=== PATIENT | female | born 1930 | race African-American/Black ===

== ENCOUNTER 2018-10-04 11:44 | Emergency (ER) | payer MEDICARE, MEDICAID ==
[~2018-10-04] VITALS: Ht 160 cm; Wt 63.0 kg
[~2018-10-04 11:44] MED LIST: AMLO10TA4 PO; ANAS1TAB47 PO; GLYB5TAB PO; INDA1.25 PO; INSU100I13 SQ; IRBE300T PO; OMEP40CA5 PO
--- NOTE | 2018-10-04 12:35 | PHYS DOC ---
Past Medical History Past Medical History: Diabetes-Type II, Other Additional Past Medical Histor: BREAST CA Past Surgical History: Other Additional Past Surgical Histo: L. BIG TOE Alcohol Use: None Drug Use: None Adult General Chief Complaint Chief Complaint: ALTERED MENTAL STATUS HPI HPI Patient is a 88 year old female who presents with AMS. The patients daughter and grandson are in the room. Her grandson states that she has been incoherent and at times she doesn't know where she is. She did not know she was in her own home before coming to the ED. This has been going on for a couple days. She lives with her daughter and does not have a senior care assistant. She is normally high functioning. This has happened before when her blood sugar was in the 400s. Her grandson states that she had a fall in May and experienced a concussion. Her MRI and CT were normal at that time. They are unsure if she has fallen again. She has not been diagnosed with dementia. She currently knows that she is at [place], the month and the year. Denies recent illness, CP, SOA, or abdominal pain.[] Review of Systems Review of Systems Constitutional: Denies fever or chills [] Eyes: Denies change in visual acuity, redness, or eye pain [] HENT: Denies nasal congestion or sore throat [] Respiratory: Denies cough or shortness of breath [] Cardiovascular: No additional information not addressed in HPI [] GI: Denies abdominal pain, nausea, vomiting, bloody stools or diarrhea [] : Denies dysuria or hematuria [] Musculoskeletal: Denies back pain or joint pain [] Integument: Denies rash or skin lesions [] Neurologic: Denies headache, focal weakness or sensory changes [] Endocrine: Denies polyuria or polydipsia [] All other systems were reviewed and found to be within normal limits, except as documented in this note. Current Medications Current Medications Current Medications Medications (Trade) Dose Ordered Sig/Markell Start Time Stop Time Status Last Admin Dose Admin Amlodipine Besylate (Norvasc) 10 mg 1X ONCE 10/04/18 12:45 10/04/18 12:46 DC 10/04/18 12:50 10 MG Sodium Chloride 500 ml @ 500 mls/hr 1X ONCE 10/04/18 12:45 10/04/18 13:44 DC 10/04/18 12:50 500 MLS/HR Allergies Allergies Allergies Coded Allergies Type Severity Reaction Last Updated Verified codeine Allergy Unknown 08/21/14 Yes Physical Exam Physical Exam Constitutional: Well developed, cachectic, no acute distress, non-toxic appearance. [] HENT: Normocephalic, atraumatic, bilateral external ears normal, oropharynx moist, no oral exudates, nose normal. [] Eyes: PERRLA, EOMI, conjunctiva normal, no discharge. [] Neck: Normal range of motion, no tenderness, supple, no stridor. [] Cardiovascular:Heart rate regular rhythm, no murmur [] Lungs & Thorax: Bilateral breath sounds clear to auscultation [] Abdomen: Bowel sounds normal, soft, no tenderness, no masses, no pulsatile masses. [] Skin: Warm, dry, no erythema, no rash. [] Back: No tenderness, no CVA tenderness. [] Extremities: No tenderness, no cyanosis, no clubbing, ROM intact, no edema. [] Neurologic: Alert and oriented X 3, normal motor function, normal sensory function, no focal deficits noted. [] Psychologic: Affect is somewhat odd, judgement normal, mood normal. [] Current Patient Data Vital Signs Vital Signs Date Time Temp Pulse Resp B/P (MAP) Pulse Ox O2 Delivery O2 Flow Rate FiO2 10/04/18 13:52 70 98 10/04/18 12:50 217/125 10/04/18 12:00 98.3 18 Room Air 98.3 Lab Values Laboratory Tests Test 10/04/18 12:10 10/04/18 12:15 10/04/18 12:35 Glucose (Fingerstick) 297 mg/dL (70-99) H White Blood Count 6.8 x10^3/uL (4.0-11.0) Red Blood Count 4.33 x10^6/uL (3.50-5.40) Hemoglobin 12.2 g/dL (12.0-15.5) Hematocrit 36.6 % (36.0-47.0) Mean Corpuscular Volume 84 fL (79-100) Mean Corpuscular Hemoglobin 28 pg (25-35) Mean Corpuscular Hemoglobin Concent 33 g/dL (31-37) Red Cell Distribution Width 13.8 % (11.5-14.5) Platelet Count 190 x10^3/uL (140-400) Neutrophils (%) (Auto) 68 % (31-73) Lymphocytes (%) (Auto) 20 % (24-48) L Monocytes (%) (Auto) 11 % (0-9) H Eosinophils (%) (Auto) 2 % (0-3) Basophils (%) (Auto) 0 % (0-3) Neutrophils # (Auto) 4.6 x10^3uL (1.8-7.7) Lymphocytes # (Auto) 1.3 x10^3/uL (1.0-4.8) Monocytes # (Auto) 0.7 x10^3/uL (0.0-1.1) Eosinophils # (Auto) 0.1 x10^3/uL (0.0-0.7) Basophils # (Auto) 0.0 x10^3/uL (0.0-0.2) Sodium Level 134 mmol/L (136-145) L Potassium Level 4.2 mmol/L (3.5-5.1) Chloride Level 95 mmol/L (98-107) L Carbon Dioxide Level 28 mmol/L (21-32) Anion Gap 11 (6-14) Blood Urea Nitrogen 27 mg/dL (7-20) H Creatinine 1.9 mg/dL (0.6-1.0) H Estimated GFR (Cockcroft-Gault) 30.3 BUN/Creatinine Ratio 14 (6-20) Glucose Level 340 mg/dL (70-99) H Calcium Level 9.3 mg/dL (8.5-10.1) Total Bilirubin 0.7 mg/dL (0.2-1.0) Aspartate Amino Transferase (AST) 13 U/L (15-37) L Alanine Aminotransferase (ALT) 16 U/L (14-59) Alkaline Phosphatase 109 U/L (46-116) Total Protein 8.0 g/dL (6.4-8.2) Albumin 3.7 g/dL (3.4-5.0) Albumin/Globulin Ratio 0.9 (1.0-1.7) L Urine Collection Type U cath Urine Color Yellow Urine Clarity Cloudy Urine pH 5.0 Urine Specific [place] 1.020 Urine Protein 30 mg/dL (NEG-TRACE) Urine Glucose (UA) >=1000 mg/dL (NEG) Urine Ketones (Stick) Negative mg/dL (NEG) Urine Blood Small (NEG) Urine Nitrite Negative (NEG) Urine Bilirubin Negative (NEG) Urine Urobilinogen Dipstick 0.2 mg/dL (0.2 mg/dL) Urine Leukocyte Esterase Moderate (NEG) Urine RBC 3-5 /HPF (0-2) Urine WBC >40 /HPF (0-4) Urine Squamous Epithelial Cells Few /LPF Urine Bacteria Many /HPF (0-FEW) Urine Mucus Slight /LPF Laboratory Tests 10/04/18 12:15 Laboratory Tests 10/04/18 12:15 EKG EKG nsr rate 76 no ischemic changes[] Radiology/Procedures Radiology/Procedures CT Head WO Contrast CXR Impressions: Impression: 1. No acute intracranial hemorrhage is identified. 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 IMPRESSION: No acute pulmonary finding. Course & Med Decision Making Course & Med Decision Making Pertinent Labs and Imaging studies reviewed. (See chart for details) []This is an 88-year-old female who is presenting to the emergency room with chief complaint altered mental status apparently had some transient confusion where she didn't know where she was currently she does know that she is at [facility] she knows it's October she appears to be essentially back to her baseline. Emergency room workup does reveal a UTI as well as some renal insufficiency which is of indeterminate chronicity at this time patient was given IV fluid bolus in the emergency room and a prescription for Keflex for UTI I talked with the family member in detail who is comfortable with discharge home at this time and knows return precautions for fever vomiting increased confusion or any other symptoms or concerns I noted the blood pressure did tell the family importance of follow-up for this as well we did give a dose of amlodipine in the emergency room patient has no obvious symptoms related to that Dragon Disclaimer Dragon Disclaimer This electronic medical record was generated, in whole or in part, using a voice recognition dictation system. Departure Departure Impression: Primary Impression: Urinary tract infection Additional Impression: Elevated blood pressure reading Disposition: HOME, SELF-CARE Condition: STABLE Referrals: UNKNOWN PCP NAME (PCP) Scripts Cephalexin (CEPHALEXIN) 500 Mg Capsule 1 CAP PO QID, #40 CAP Prov: DUY QUINTERO MD 10/04/18 Problem Qualifiers DUY QUINTERO MD Oct 04, 2018 12:35
[2018-10-04] MEDS ORDERED: IV NORMAL SALINE 500ML BAG 500 ML IV ONE (12:45)
[2018-10-04] MEDS ORDERED: amLODIPine BESYLATE 5 MG TABLET PO ONE (12:45)
[2018-10-04 12:46] LABS: BASO % 0 % (0-3); EOS # 0.1 x10^3/uL (0.0-0.7); EOS % 2 % (0-3); HEMATOCRIT 36.6 % (36.0-47.0); HEMOGLOBIN 12.2 g/dL (12.0-15.5); LYMPH # 1.3 x10^3/uL (1.0-4.8); LYMPH % 20 % (24-48); MEAN CORPUSCULAR HEMOGLOBIN 28 pg (25-35); MEAN CORPUSCULAR HGB CONC 33 g/dL (31-37); MEAN CORPUSCULAR VOLUME 84 fL (79-100); MONO # 0.7 x10^3/uL (0.0-1.1); MONO % 11 % (0-9); NEUT # 4.6 x10^3uL (1.8-7.7); NEUT % 68 % (31-73); PLATELET COUNT 190 x10^3/uL (140-400); RED BLOOD COUNT 4.33 x10^6/uL (3.50-5.40); RED CELL DISTRIBUTION WIDTH 13.8 % (11.5-14.5); WHITE BLOOD COUNT 6.8 x10^3/uL (4.0-11.0)
[2018-10-04 12:51] LABS: BILIRUBIN,URINE NEGATIVE (NEG); CLARITY,URINE CLOUDY; COLOR,URINE YELLOW; NITRITE,URINE NEGATIVE (NEG); PROTEIN,URINE 30 mg/dL (NEG-TRACE); UROBILINOGEN,URINE 0.2 mg/dL (0.2 mg/dL)
[2018-10-04 12:58] LABS: CALCIUM 9.3 mg/dL (8.5-10.1); CREATININE 1.9 mg/dL (0.6-1.0); GFR 30.3; POTASSIUM 4.2 mmol/L (3.5-5.1)
--- NOTE | 2018-10-04 13:00 | RAD ---
EXAM: Chest, single view. HISTORY: Altered mental status. COMPARISON: 03/18/2009. FINDINGS: A frontal view of the chest is obtained. There is no infiltrate, pleural effusion or pneumothorax. The heart is normal in size. There is a large calcified granuloma within the right upper lobe. There is decreased bilateral subacromial spaces likely due to chronic rotator cuff tears. IMPRESSION: No acute pulmonary finding. Electronically signed by: Octavia Lainez MD (10/04/2018 12:57 PM) [place] [id number]
[2018-10-04 13:02] LABS: ALBUMIN 3.7 g/dL (3.4-5.0); ALBUMIN/GLOBULIN RATIO 0.9 (1.0-1.7); TOTAL BILIRUBIN 0.7 mg/dL (0.2-1.0)
--- NOTE | 2018-10-04 13:08 | EKG ---
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
[2018-10-04 13:09] LABS: BACTERIA,URINE MANY /HPF (0-FEW); SQUAMOUS EPITHELIAL CELL,UR FEW /LPF
[2018-10-04 13:10] LABS: WBC,URINE >40 /HPF (0-4)
[2018-10-04 13:52] VITALS: BP 222/110
--- NOTE | 2018-10-04 13:55 | RAD ---
CT HEAD WO CONTRAST History: Confusion, possible fall Comparison: April 25, [address] Technique: Noncontrast CT imaging was performed of the head. Exposure: One or more of the following individualized dose reduction techniques were utilized for this examination: 1. Automated exposure control 2. Adjustment of the mA and/or kV according to patient size 3. Use of iterative reconstruction technique. Findings: There is some motion degradation. No acute intracranial hemorrhage is identified. There is no midline shift. There is again mild third and lateral ventriculomegaly, slightly greater. Size of the fourth ventricle is similar. There is mild generalized atrophy. There is atherosclerotic calcification bilateral carotid siphons and left intradural vertebral artery. Impression: 1. No acute intracranial hemorrhage is identified. 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 Electronically signed by: Andrey Jimenez MD (10/04/2018 1:52 PM) [id number]
[2018-10-04] MEDS ORDERED: CEPH500C PO (14:04)
[2018-11-24] MEDS ORDERED: INSU100C4 SQ (18:26)
[2018-11-24] MEDS ORDERED: GLIP5TAB10 PO (18:26)
[2018-11-24] MEDS ORDERED: EXEM25TA2 PO (18:37)
== END 2018-10-04 14:21 | disposition home or self-care (01) ==
LOC: ER 11:44
DX: E11.9 Type 2 diabetes mellitus without complications (principal); N39.0 Urinary tract infection, site not specified; R41.82 Altered mental status, unspecified; Z88.5 Allergy status to narcotic agent
CPT/HCPCS: 36415; 51701; 70450; 71045; 80053; 81001; 82962; 85025; 87086; 93005; 96360; 99284; J7040; 87186

== ENCOUNTER 2018-10-07 00:42 | Inpatient (IN) | payer MEDICARE, OTHER ==
[~2018-10-07] VITALS: Ht 243.8 cm; Wt 56.8 kg
[~2018-10-07 00:42] MED LIST changes: +CEPH500C PO
[2018-10-07] MEDS ORDERED: INSULIN REGULAR 100 UNIT/ML 3ML VIAL. IV ONE (01:00)
[2018-10-07] MEDS ORDERED: IV NORMAL SALINE 1000ML BAG 1,000 ML IV SCH (01:00)
[2018-10-07 01:31] LABS: BASO % 1 % (0-3); EOS # 0.2 x10^3/uL (0.0-0.7); EOS % 3 % (0-3); HEMATOCRIT 32.4 % (36.0-47.0); HEMOGLOBIN 10.9 g/dL (12.0-15.5); LYMPH # 1.3 x10^3/uL (1.0-4.8); LYMPH % 21 % (24-48); MEAN CORPUSCULAR HEMOGLOBIN 28 pg (25-35); MEAN CORPUSCULAR HGB CONC 34 g/dL (31-37); MEAN CORPUSCULAR VOLUME 84 fL (79-100); MONO # 0.7 x10^3/uL (0.0-1.1); MONO % 12 % (0-9); NEUT # 3.7 x10^3uL (1.8-7.7); NEUT % 63 % (31-73); PLATELET COUNT 174 x10^3/uL (140-400); RED BLOOD COUNT 3.84 x10^6/uL (3.50-5.40); RED CELL DISTRIBUTION WIDTH 14.1 % (11.5-14.5); WHITE BLOOD COUNT 5.9 x10^3/uL (4.0-11.0)
[2018-10-07 01:45] LABS: ALBUMIN 3.3 g/dL (3.4-5.0); ALBUMIN/GLOBULIN RATIO 0.8 (1.0-1.7); CREATININE 1.9 mg/dL (0.6-1.0); GFR 30.3; MAGNESIUM 1.9 mg/dL (1.8-2.4); TOTAL BILIRUBIN 0.5 mg/dL (0.2-1.0); TOTAL PROTEIN 7.2 g/dL (6.4-8.2)
[2018-10-07] MEDS ORDERED: traMADol 50 MG TABLET PO ONE (02:30)
[2018-10-07 03:27] LABS: BILIRUBIN,URINE NEGATIVE (NEG); CLARITY,URINE CLEAR; COLOR,URINE YELLOW; NITRITE,URINE POSITIVE (NEG); PROTEIN,URINE NEGATIVE (NEG-TRACE); UROBILINOGEN,URINE 0.2 mg/dL (0.2 mg/dL)
[2018-10-07 03:45] LABS: BACTERIA,URINE MODERATE /HPF (0-FEW); WBC,URINE TNTC /HPF (0-4)
[2018-10-07] MEDS ORDERED: cefTRIAXone IV Push 1 GM VIAL. IVP ONE (04:00)
--- NOTE | 2018-10-07 04:06 | PHYS DOC ---
Past Medical History Past Medical History: Diabetes-Type II, Other Additional Past Medical Histor: BREAST CA Past Surgical History: Other Additional Past Surgical Histo: L. BIG TOE Alcohol Use: None Drug Use: None Adult General Chief Complaint Chief Complaint: ALTERED MENTAL STATUS [facility] HPI Patient is an 88-year-old female who presents from home with report of being on floor last 5 hours. Patient reportedly was confused and telling medics that she had been folding closed while she was on the floor for 5 hours but had not been doing so. There is also concern that patient has been wearing same close for the last several days. Patient also had been diagnosed with urinary tract infection a few days back but patient has not been initiated on antibiotics by family yet. Patient's blood sugar has also been elevated. Patient denies any chest pain or shortness of breath. She denies any abdominal pain, nausea or vomiting. Review of Systems Review of Systems Constitutional: Denies fever or chills [] Respiratory: Denies cough or shortness of breath [] Cardiovascular: No additional information not addressed in HPI [] GI: Denies abdominal pain, nausea, vomiting, bloody stools or diarrhea [] : Denies dysuria or hematuria [] Musculoskeletal: Denies back pain or joint pain [] All other systems were reviewed and found to be within normal limits, except as documented in this note. Current Medications Current Medications Current Medications Medications (Trade) Dose Ordered Sig/Markell Start Time Stop Time Status Last Admin Dose Admin Ceftriaxone Sodium (Rocephin) 1 gm 1X ONCE 10/07/18 04:00 10/07/18 04:01 UNV Dextrose (Dextrose 50%-Water Syringe) 12.5 gm PRN Q15MIN PRN 10/07/18 04:30 UNV Insulin Human Lispro (HumaLOG) 0-7 UNITS TIDWMEALS 10/07/18 08:00 UNV Insulin Human Regular (HumuLIN R VIAL) 10 unit 1X ONCE 10/07/18 01:00 10/07/18 01:01 DC 10/07/18 01:50 10 UNIT Sodium Chloride 1,000 ml @ 100 mls/hr Q10H 10/07/18 04:06 10/08/18 04:05 UNV Tramadol HCl (Ultram) 50 mg 1X ONCE 10/07/18 02:30 10/07/18 02:31 DC Allergies Allergies Allergies Coded Allergies Type Severity Reaction Last Updated Verified codeine Allergy Unknown 08/21/14 Yes Physical Exam Physical Exam Constitutional: Well developed, well nourished, no acute distress, non-toxic appearance. [] HENT: Normocephalic, atraumatic, bilateral external ears normal, oropharynx moist, no oral exudates, nose normal. [] Eyes: PERRLA, EOMI, conjunctiva normal, no discharge. [] Neck: Normal range of motion, no tenderness, supple, no stridor. [] Cardiovascular:Heart rate regular rhythm, no murmur [] Lungs & Thorax: Bilateral breath sounds clear to auscultation [] Abdomen: Bowel sounds normal, soft, no tenderness. [] Skin: Warm, dry, no erythema, no rash. [] Extremities: No tenderness, no cyanosis, no clubbing, ROM intact, no edema. [] Neurologic: Awake and alert, no focal deficits noted. [] Current Patient Data Vital Signs Vital Signs Date Time Temp Pulse Resp B/P (MAP) Pulse Ox O2 Delivery O2 Flow Rate FiO2 10/07/18 00:42 98.5 82 16 182/90 (120) 98 Room Air 98.5 Lab Values Laboratory Tests Test 10/07/18 01:20 10/07/18 02:43 10/07/18 03:13 White Blood Count 5.9 x10^3/uL (4.0-11.0) Red Blood Count 3.84 x10^6/uL (3.50-5.40) Hemoglobin 10.9 g/dL (12.0-15.5) L Hematocrit 32.4 % (36.0-47.0) L Mean Corpuscular Volume 84 fL (79-100) Mean Corpuscular Hemoglobin 28 pg (25-35) Mean Corpuscular Hemoglobin Concent 34 g/dL (31-37) Red Cell Distribution Width 14.1 % (11.5-14.5) Platelet Count 174 x10^3/uL (140-400) Neutrophils (%) (Auto) 63 % (31-73) Lymphocytes (%) (Auto) 21 % (24-48) L Monocytes (%) (Auto) 12 % (0-9) H Eosinophils (%) (Auto) 3 % (0-3) Basophils (%) (Auto) 1 % (0-3) Neutrophils # (Auto) 3.7 x10^3uL (1.8-7.7) Lymphocytes # (Auto) 1.3 x10^3/uL (1.0-4.8) Monocytes # (Auto) 0.7 x10^3/uL (0.0-1.1) Eosinophils # (Auto) 0.2 x10^3/uL (0.0-0.7) Basophils # (Auto) 0.0 x10^3/uL (0.0-0.2) Sodium Level 132 mmol/L (136-145) L Potassium Level 4.0 mmol/L (3.5-5.1) Chloride Level 95 mmol/L (98-107) L Carbon Dioxide Level 25 mmol/L (21-32) Anion Gap 12 (6-14) Blood Urea Nitrogen 26 mg/dL (7-20) H Creatinine 1.9 mg/dL (0.6-1.0) H Estimated GFR (Cockcroft-Gault) 30.3 BUN/Creatinine Ratio 14 (6-20) Glucose Level 556 mg/dL (70-99) *H Calcium Level 9.0 mg/dL (8.5-10.1) Magnesium Level 1.9 mg/dL (1.8-2.4) Total Bilirubin 0.5 mg/dL (0.2-1.0) Aspartate Amino Transferase (AST) 10 U/L (15-37) L Alanine Aminotransferase (ALT) 16 U/L (14-59) Alkaline Phosphatase 114 U/L (46-116) Total Protein 7.2 g/dL (6.4-8.2) Albumin 3.3 g/dL (3.4-5.0) L Albumin/Globulin Ratio 0.8 (1.0-1.7) L Glucose (Fingerstick) 264 mg/dL (70-99) H Urine Collection Type Unknown Urine Color Yellow Urine Clarity Clear Urine pH 6.0 Urine Specific [place] 1.020 Urine Protein Negative mg/dL (NEG-TRACE) Urine Glucose (UA) >=1000 mg/dL (NEG) Urine Ketones (Stick) Negative mg/dL (NEG) Urine Blood Trace (NEG) Urine Nitrite Positive (NEG) Urine Bilirubin Negative (NEG) Urine Urobilinogen Dipstick 0.2 mg/dL (0.2 mg/dL) Urine Leukocyte Esterase Moderate (NEG) Urine RBC 1-2 /HPF (0-2) Urine WBC Tntc /HPF (0-4) Urine Squamous Epithelial Cells None /LPF Urine Bacteria Moderate /HPF (0-FEW) Laboratory Tests 10/07/18 01:20 Laboratory Tests 10/07/18 01:20 EKG EKG [] Radiology/Procedures Radiology/Procedures [] Course & Med Decision Making Course & Med Decision Making Pertinent Labs and Imaging studies reviewed. (See chart for details) [] Dragon Disclaimer Dragon Disclaimer This electronic medical record was generated, in whole or in part, using a voice recognition dictation system. Departure Departure Impression: Primary Impression: Uncontrolled type 2 diabetes mellitus Additional Impression: Urinary tract infection Disposition: ADMITTED INPATIENT Admitting Physician: Other (Dr. Calix) Condition: IMPROVED Referrals: UNKNOWN PCP NAME (PCP) Problem Qualifiers Primary Impression: Uncontrolled type 2 diabetes mellitus Glycemic state: with hyperglycemia Qualified Codes: E11.65 - Type 2 diabetes mellitus with hyperglycemia Additional Impression: Urinary tract infection Urinary tract infection type: site unspecified Hematuria presence: without hematuria Qualified Codes: N39.0 - Urinary tract infection, site not specified HALLE TALAVERA Jr. DO Oct 07, 2018 04:06
[2018-10-07] MEDS ORDERED: DEXTROSE 50% 25 GM / 50ML DISP.SYRIN. IV PRN (04:30)
--- NOTE | 2018-10-07 04:45 | NUR ---
ADMISSION NOTE Pt admitted to room 510 via cart. Pt ambulatory to bathroom with one assist, pt was incontinent of urine on the way. Pt cleaned up, gown and socks changed, pull up placed on pt. Pt assisted to bed. Pt educated occupational health rn light and bed alarm on at this time. Pts grandson, Vikas, is at bedside. He states that the pt lives with her daughter, Jayda, who is Vikas's mother, but Vikas states he is still the best personnel specialist. Pt is A/O x2, has dementia and is pleasantly confused. Medical history and home medications obtained from pt, grandson and previous ER visits. Vikas did state he would try to bring up the pts medication list to assure that our list is correct. Will monitor.
[2018-10-07 05:23] VITALS: BP 157/75
[2018-10-07] MEDS: IV NORMAL SALINE 1000ML BAG 1,000 ML IV SCH ×2 (05:44→14:15)
[2018-10-07 07:00] VITALS: BP 115/59
--- NOTE | 2018-10-07 07:43 | PDOC1 ---
History and Physical Date of Admission Date of Admission DATE: 10/07/18 TIME: 07:42 Identification/Chief Complaint Chief Complaint Acute encephalopathy History of Present Illness History of Present Illness Patient is an 88-year-old female w/ PMHx breast cancer, HTN, DM who presents from home with report of being on floor last 5 hours. She was confused, not oriented, stated, she was folding closed while she was on the floor for 5 hours but had not been doing so as paramedics found her laying down. Family is concerned she has been wearing same close for the last several days. She was apparently diagnosed with urinary tract infection a few days back but patient has not been initiated on antibiotics by family yet. Patient's blood sugar has also been elevated. Patient denies any chest pain or shortness of breath. She denies any abdominal pain, nausea or vomiting. In ED found with Na 132, Cr 1.9, Glucose 556, albumin 3.3 and very disoriented, confused. UA with nitrite +, LE + and gross pyuria. Admitted for further care. Past Medical History Cardiovascular: HTN Pulmonary: No pertinent hx CENTRAL NERVOUS SYSTEM: Periperal neuropathy GI: No pertinent hx Heme/Onc: Cancer (Breast) Hepatobiliary: No pertinent hx Psych: No pertinent hx Rheumatologic: No pertinent hx Infectious disease: No pertinent hx ENT: No pertinent hx Renal/: No pertinent hx Endocrine: Diabetes Dermatology: No pertinent hx Past Surgical History Past Surgical History: Breast Biopsy Family History Family History: Family History Unknown Social History Smoke: No ALCOHOL: none Drugs: None Current Problem List Problem List Problems Medical Problems: (1) Urinary tract infection Status: Acute Current Medications Current Medications Current Medications Sodium Chloride 1,000 ml @ 1,000 mls/hr Q1H IV Last administered on 10/07/18at 01:44; Start 10/07/18 at 01:00; Stop 10/07/18 at 01:59; Status DC Insulin Human Regular (HumuLIN R VIAL) 10 unit 1X ONCE IV Last administered on 10/07/18at 01:50; Start 10/07/18 at 01:00; Stop 10/07/18 at 01:01; Status DC Tramadol HCl (Ultram) 50 mg 1X ONCE PO ; Start 10/07/18 at 02:30; Stop 10/07/18 at 02:31; Status DC Ceftriaxone Sodium (Rocephin) 1 gm 1X ONCE IVP Last administered on 10/07/18at 04:26; Start 10/07/18 at 04:00; Stop 10/07/18 at 04:36; Status DC Sodium Chloride 1,000 ml @ 100 mls/hr Q10H IV Last administered on 10/07/18at 05 :44; Start 10/07/18 at 04:15; Stop 10/08/18 at 04:14 Insulin Human Lispro (HumaLOG) 0-7 UNITS TIDWMEALS SQ ; Start 10/07/18 at 08:00 Dextrose (Dextrose 50%-Water Syringe) 12.5 gm PRN Q15MIN PRN IV SEE COMMENTS; Start 10/07/18 at 04:30 Active Scripts Active Cephalexin 500 Mg Capsule 1 Cap PO QID Reported Omeprazole 40 Mg Capsule.dr 40 Mg PO DAILY Avapro (Irbesartan) 300 Mg Tablet 300 Mg PO DAILY Lantus Solostar (Insulin Glargine,Hum.rec.anlog) 100 Unit/1 Ml Insuln.pen 15 Unit SQ HS Indapamide 1.25 Mg Tablet 1.25 Mg PO DAILY Diabeta (Glyburide) 5 Mg Tablet 5 Mg PO DAILY Arimidex (Anastrozole) 1 Mg Tablet 1 Mg PO DAILY Norvasc (Amlodipine Besylate) 10 Mg Tablet 10 Mg PO DAILY Allergies Allergies: Coded Allergies: codeine (Verified Allergy, Unknown, 08/21/14) ROS Review of System Limited due to confusion General: YES: Fatigue, Malaise, Appetite; No: Chills, Night Sweats, Other PSYCHOLOGICAL ROS: YES: Depression; No: Anxiety, Behavioral Disorder, Concentration difficultie, Decreased libido , Disorientation, Hallucinations, Hostility, Irritablity, Memory difficulties, Mood Swings, Obsessive thoughts, Physical abuse, Sexual abuse, Sleep disturbances, Suicidal ideation, Other Eyes: No Blurry vision, No Decreased vision, No Double vision, No Dry eyes, No Excessive tearing, No Eye Pain, No Itchy Eyes, No Loss of vision, No Photophobia , No Scotomata, No Uses contacts, No Uses glasses, No Other HEENT: No: Heacaches, Visual Changes, Hearing change, Nasal congestion, Nasal discharge, Oral lesions, Sinus pain, Sore Throat, Epistaxis, Sneezing, Snoring, Tinnitus, Vertigo, Vocal changes, Other ALLERGY AND IMMUNOLOGY: No: Hives, Insect Bite Sensitivity, Itchy/Watery Eyes, Nasal Congestion, Post Nasal Drip, Seasonal Allergies, Other Hematological and Lymphatic: No: Bleeding Problems, Blood Clots, Blood Transfusions, Brusing, Night Sweats, Pallor, Swollen Lymph Nodes, Other ENDOCRINE: No: Breast Changes, Galactorrhea, Hair Pattern Changes, Hot Flashes , Malaise/lethargy, Mood Swings, Palpitations, Polydipsia/polyuria, Skin Changes , Temperature Intolerance, Unexpected Weight Changes, Other Breast: No New/Changing Breast Lumps, No Nipple changes, No Nipple discharge, No Other Respiratory: No: Cough, Hemoptysis, Orthopnea, Pleuritic Pain, Shortness of breath, SOB with excertion, Sputum Changes, Stridor, Tachypnea, Wheezing, Other Cardiovascular: No Chest Pain, No Palpitations, No Orthopnea, No Paroxysmal Noc. Dyspnea, No Edema, No Lt Headedness, No Other Gastrointestinal: Yes Nausea; No Vomiting, No Abdominal Pain, No Diarrhea, No Constipation, No Melena, No Hematochezia, No Other Genitourinary: YES Dysuria, YES Frequency, YES Retention; No Incontinence, No Hematuria, No Discharge, No Urgency, No Pain, No Flank Pain, No Other, No , No , No , No , No , No , No Musculoskeletal: Yes Gait Disturbance; No Joint Pain, No Joint Stiffness, No Joint Swelling, No Muscle Pain, No Muscular Weakness, No Pain In:, No Swelling In:, No Other Neurological: Yes Behavorial Changes, Yes Bowel/Bladder ControlChng, Yes Confusion, Yes Gait Disturbance, Yes Numbness/Tingling; No Dizziness, No Headaches, No Impaired Coord/balance, No Memory Loss, No Seizures, No Speech Problems, No Tremors, No Visual Changes, No Weakness, No Other Skin: No Dry Skin, No Eczema, No Hair Changes, No Lumps, No Mole Changes, No Mottling, No Nail Changes, No Pruritus, No Rash, No Skin Lesion Changes, No Other, No Acne Physical Exam General: Alert, Cooperative, No acute distress HEENT: Atraumatic, PERRLA, EOMI, Mucous membr. moist/pink Lungs: Clear to auscultation, Normal air movement Heart: S1S2, RRR Abdomen: Normal bowel sounds, Soft, No tenderness, No hepatosplenomegaly, No masses Rectal Exam: not examined Extremities: No clubbing, No cyanosis, No edema, Normal pulses, No tenderness/ swelling Skin: No rashes, No breakdown, No significant lesion Neuro: Normal speech, Strength at 5/5 X4 ext, Normal tone, Sensation intact, Cranial nerves 3-12 NL, Reflexes 2+ Psych/Mental Status: Mood NL Vitals Vitals Vital Signs Date Time Temp Pulse Resp B/P (MAP) Pulse Ox O2 Delivery O2 Flow Rate FiO2 10/07/18 05:50 Room Air 10/07/18 05:23 98.7 90 20 157/75 (102) 97 98.7 Labs Labs Laboratory Tests Test 10/07/18 01:20 10/07/18 02:43 10/07/18 03:13 10/07/18 04:30 White Blood Count 5.9 x10^3/uL (4.0-11.0) Red Blood Count 3.84 x10^6/uL (3.50-5.40) Hemoglobin 10.9 g/dL (12.0-15.5) Hematocrit 32.4 % (36.0-47.0) Mean Corpuscular Volume 84 fL (79-100) Mean Corpuscular Hemoglobin 28 pg (25-35) Mean Corpuscular Hemoglobin Concent 34 g/dL (31-37) Red Cell Distribution Width 14.1 % (11.5-14.5) Platelet Count 174 x10^3/uL (140-400) Neutrophils (%) (Auto) 63 % (31-73) Lymphocytes (%) (Auto) 21 % (24-48) Monocytes (%) (Auto) 12 % (0-9) Eosinophils (%) (Auto) 3 % (0-3) Basophils (%) (Auto) 1 % (0-3) Neutrophils # (Auto) 3.7 x10^3uL (1.8-7.7) Lymphocytes # (Auto) 1.3 x10^3/uL (1.0-4.8) Monocytes # (Auto) 0.7 x10^3/uL (0.0-1.1) Eosinophils # (Auto) 0.2 x10^3/uL (0.0-0.7) Basophils # (Auto) 0.0 x10^3/uL (0.0-0.2) Sodium Level 132 mmol/L (136-145) Potassium Level 4.0 mmol/L (3.5-5.1) Chloride Level 95 mmol/L (98-107) Carbon Dioxide Level 25 mmol/L (21-32) Anion Gap 12 (6-14) Blood Urea Nitrogen 26 mg/dL (7-20) Creatinine 1.9 mg/dL (0.6-1.0) Estimated GFR (Cockcroft-Gault) 30.3 BUN/Creatinine Ratio 14 (6-20) Glucose Level 556 mg/dL (70-99) Calcium Level 9.0 mg/dL (8.5-10.1) Magnesium Level 1.9 mg/dL (1.8-2.4) Total Bilirubin 0.5 mg/dL (0.2-1.0) Aspartate Amino Transf (AST/SGOT) 10 U/L (15-37) Alanine Aminotransferase (ALT/SGPT) 16 U/L (14-59) Alkaline Phosphatase 114 U/L (46-116) Total Protein 7.2 g/dL (6.4-8.2) Albumin 3.3 g/dL (3.4-5.0) Albumin/Globulin Ratio 0.8 (1.0-1.7) Glucose (Fingerstick) 264 mg/dL (70-99) 169 mg/dL (70-99) Urine Collection Type Unknown Urine Color Yellow Urine Clarity Clear Urine pH 6.0 Urine Specific [place] 1.020 Urine Protein Negative mg/dL (NEG-TRACE) Urine Glucose (UA) >=1000 mg/dL (NEG) Urine Ketones (Stick) Negative mg/dL (NEG) Urine Blood Trace (NEG) Urine Nitrite Positive (NEG) Urine Bilirubin Negative (NEG) Urine Urobilinogen Dipstick 0.2 mg/dL (0.2 mg/dL) Urine Leukocyte Esterase Moderate (NEG) Urine RBC 1-2 /HPF (0-2) Urine WBC Tntc /HPF (0-4) Urine Squamous Epithelial Cells None /LPF Urine Bacteria Moderate /HPF (0-FEW) Laboratory Tests Test 10/07/18 01:20 10/07/18 02:43 10/07/18 03:13 10/07/18 04:30 White Blood Count 5.9 x10^3/uL (4.0-11.0) Red Blood Count 3.84 x10^6/uL (3.50-5.40) Hemoglobin 10.9 g/dL (12.0-15.5) Hematocrit 32.4 % (36.0-47.0) Mean Corpuscular Volume 84 fL (79-100) Mean Corpuscular Hemoglobin 28 pg (25-35) Mean Corpuscular Hemoglobin Concent 34 g/dL (31-37) Red Cell Distribution Width 14.1 % (11.5-14.5) Platelet Count 174 x10^3/uL (140-400) Neutrophils (%) (Auto) 63 % (31-73) Lymphocytes (%) (Auto) 21 % (24-48) Monocytes (%) (Auto) 12 % (0-9) Eosinophils (%) (Auto) 3 % (0-3) Basophils (%) (Auto) 1 % (0-3) Neutrophils # (Auto) 3.7 x10^3uL (1.8-7.7) Lymphocytes # (Auto) 1.3 x10^3/uL (1.0-4.8) Monocytes # (Auto) 0.7 x10^3/uL (0.0-1.1) Eosinophils # (Auto) 0.2 x10^3/uL (0.0-0.7) Basophils # (Auto) 0.0 x10^3/uL (0.0-0.2) Sodium Level 132 mmol/L (136-145) Potassium Level 4.0 mmol/L (3.5-5.1) Chloride Level 95 mmol/L (98-107) Carbon Dioxide Level 25 mmol/L (21-32) Anion Gap 12 (6-14) Blood Urea Nitrogen 26 mg/dL (7-20) Creatinine 1.9 mg/dL (0.6-1.0) Estimated GFR (Cockcroft-Gault) 30.3 BUN/Creatinine Ratio 14 (6-20) Glucose Level 556 mg/dL (70-99) Calcium Level 9.0 mg/dL (8.5-10.1) Magnesium Level 1.9 mg/dL (1.8-2.4) Total Bilirubin 0.5 mg/dL (0.2-1.0) Aspartate Amino Transf (AST/SGOT) 10 U/L (15-37) Alanine Aminotransferase (ALT/SGPT) 16 U/L (14-59) Alkaline Phosphatase 114 U/L (46-116) Total Protein 7.2 g/dL (6.4-8.2) Albumin 3.3 g/dL (3.4-5.0) Albumin/Globulin Ratio 0.8 (1.0-1.7) Glucose (Fingerstick) 264 mg/dL (70-99) 169 mg/dL (70-99) Urine Collection Type Unknown Urine Color Yellow Urine Clarity Clear Urine pH 6.0 Urine Specific [place] 1.020 Urine Protein Negative mg/dL (NEG-TRACE) Urine Glucose (UA) >=1000 mg/dL (NEG) Urine Ketones (Stick) Negative mg/dL (NEG) Urine Blood Trace (NEG) Urine Nitrite Positive (NEG) Urine Bilirubin Negative (NEG) Urine Urobilinogen Dipstick 0.2 mg/dL (0.2 mg/dL) Urine Leukocyte Esterase Moderate (NEG) Urine RBC 1-2 /HPF (0-2) Urine WBC Tntc /HPF (0-4) Urine Squamous Epithelial Cells None /LPF Urine Bacteria Moderate /HPF (0-FEW) VTE Prophylaxis Ordered VTE Prophylaxis Devices: Yes VTE Pharmacological Prophylaxi: Yes Assessment/Plan Assessment/Plan A/P: Acute encephalopathy - likely metabolic. Will treat UTI UTI - with LE, nitrite, pyuria - will cont rocephin x 3 days FREDIS - likely 2/2 vasomotor nephropathy in combination with continuing diuretics while taking PO poorly. IVF for now, hold ARB and indapamide H/o breast cancer - cont arimidex HTN - cont amlodipine, hold arb and diuretic DM - with hyperglycemia - will place on basal bolus plus regimen. Hold sulfonylurea for FREDIS FEN - ADA diet PPX - heparin FULL CODE Inpatient for acute encephalopathy. Will require at least 2 midnights. RALPH FLEMING MD Oct 07, 2018 07:43
[2018-10-07] MEDS: PANTOPRAZOLE 40 MG TABLET.DR. PO SCH (09:07)
[2018-10-07] MEDS: amLODIPine BESYLATE 10 MG TABLET PO SCH (09:07)
[2018-10-07] MEDS: ANASTROZOLE 1 MG TABLET PO SCH (09:09)
[2018-10-07] MEDS: INSULIN LISPRO 300 UNITS/3 ML INSULN.PEN. SQ SCH ×4 (09:10→17:05)
[2018-10-07 11:00] VITALS: BP 138/73
[2018-10-07] MEDS: HEPARIN for SUB-Q USE 5,000 UNIT/ML VIAL. SQ SCH ×2 (14:58→21:27)
[2018-10-07 15:00] VITALS: BP 133/70
--- NOTE | 2018-10-07 17:06 | NUR ---
Gave 10 units of insulin. Added 3 units to sliding scale, ok per
[2018-10-07] MEDS ORDERED: LIDOCAINE 2% JELLY 6ML IN APPLICATOR. TP ONE (17:30)
--- NOTE | 2018-10-07 18:05 | NUR ---
Rubbed lido jel on arm, unfortunately blew that vein when attempted to place IV. Rubbed another area on opposite hand and attempted an IV, however patient would not sit still and IV pulled out. Patient refusing an IV at this time. Encouraged oral fluid intake.
[2018-10-07 19:00] VITALS: BP 176/83
[2018-10-07] MEDS: INSULIN GLARGINE 300 UNITS/3 ML INSULN.PEN. SQ SCH (21:25)
[2018-10-07 23:00] VITALS: BP 109/57
[2018-10-08] MEDS: IV NORMAL SALINE 1000ML BAG 1,000 ML IV SCH (00:15)
[2018-10-08 03:00] VITALS: BP 63/57
--- NOTE | 2018-10-08 03:04 | NUR ---
Patient has refused on three attempts to allow nursing staff to insert an IV.
[2018-10-08] MEDS: HEPARIN for SUB-Q USE 5,000 UNIT/ML VIAL. SQ SCH ×3 (06:12→21:10)
[2018-10-08 07:00] VITALS: BP 123/67
[2018-10-08] MEDS ORDERED: cefTRIAXone IV Push 1 GM VIAL. IVP SCH (07:00)
[2018-10-08] MEDS: INSULIN LISPRO 300 UNITS/3 ML INSULN.PEN. SQ SCH ×7 (07:30→17:01)
--- NOTE | 2018-10-08 07:36 | PDOC ---
PROGRESS NOTES Chief Complaint Chief Complaint A/P: Acute encephalopathy - likely metabolic. Will treat UTI UTI - with LE, nitrite, pyuria - will cont rocephin x 3 days FREDIS - likely 2/2 vasomotor nephropathy in combination with continuing diuretics while taking PO poorly. IVF for now, hold ARB and indapamide H/o breast cancer - cont arimidex HTN - cont amlodipine, hold arb and diuretic DM - with hyperglycemia - will place on basal bolus plus regimen. Hold sulfonylurea for FREDIS Hypokalemia - replace orally FEN - ADA diet PPX - heparin FULL CODE Inpatient for acute encephalopathy. Will require at least 2 midnights. History of Present Illness History of Present Illness Patient is an 88-year-old female w/ PMHx breast cancer, HTN, DM who presents from home with report of being on floor last 5 hours. She was confused, not oriented, stated, she was folding closed while she was on the floor for 5 hours but had not been doing so as paramedics found her laying down. Family is concerned she has been wearing same close for the last several days. She was apparently diagnosed with urinary tract infection a few days back but patient has not been initiated on antibiotics by family yet. Patient's blood sugar has also been elevated. Patient denies any chest pain or shortness of breath. She denies any abdominal pain, nausea or vomiting. In ED found with Na 132, Cr 1.9, Glucose 556, albumin 3.3 and very disoriented, confused. UA with nitrite +, LE + and gross pyuria. Admitted for further care. She lost IV yesterday, unable to replace despite multiple attempts and lidocaine topically. Tolerating PO well. Still confused, though pleasantly so. Denies CP or SOB. Does c/o headache. Plan: reattempt IV for antibiotics, oral augmentin in case IV access cannot be maintained. Encourage PO Replace PO K, check mag PT/OT for gait instability Adjust insulin regimen for > 300md/dL Vitals Vitals Vital Signs Date Time Temp Pulse Resp B/P (MAP) Pulse Ox O2 Delivery O2 Flow Rate FiO2 10/08/18 03:00 97.9 68 18 63/57 (59) 99 Room Air 97.9 Physical Exam General: Alert, Cooperative, No acute distress Abdomen: Normal bowel sounds, Soft, No tenderness, No hepatosplenomegaly, No masses Extremities: No clubbing, No cyanosis, No edema, Normal pulses, No tenderness/ swelling Skin: No rashes, No breakdown, No significant lesion Labs LABS Laboratory Tests Test 10/07/18 07:38 10/07/18 11:09 10/07/18 16:47 10/07/18 20:18 Glucose (Fingerstick) 209 mg/dL (70-99) 313 mg/dL (70-99) 355 mg/dL (70-99) 381 mg/dL (70-99) Assessment and Plan Assessmemt and Plan Problems Medical Problems: (1) Urinary tract infection Status: Acute Comment Review of Relevant I have reviewed the following items meg (where applicable) has been applied. Labs Laboratory Tests Test 10/07/18 01:20 10/07/18 02:43 10/07/18 03:13 10/07/18 04:30 White Blood Count 5.9 x10^3/uL (4.0-11.0) Red Blood Count 3.84 x10^6/uL (3.50-5.40) Hemoglobin 10.9 g/dL (12.0-15.5) Hematocrit 32.4 % (36.0-47.0) Mean Corpuscular Volume 84 fL (79-100) Mean Corpuscular Hemoglobin 28 pg (25-35) Mean Corpuscular Hemoglobin Concent 34 g/dL (31-37) Red Cell Distribution Width 14.1 % (11.5-14.5) Platelet Count 174 x10^3/uL (140-400) Neutrophils (%) (Auto) 63 % (31-73) Lymphocytes (%) (Auto) 21 % (24-48) Monocytes (%) (Auto) 12 % (0-9) Eosinophils (%) (Auto) 3 % (0-3) Basophils (%) (Auto) 1 % (0-3) Neutrophils # (Auto) 3.7 x10^3uL (1.8-7.7) Lymphocytes # (Auto) 1.3 x10^3/uL (1.0-4.8) Monocytes # (Auto) 0.7 x10^3/uL (0.0-1.1) Eosinophils # (Auto) 0.2 x10^3/uL (0.0-0.7) Basophils # (Auto) 0.0 x10^3/uL (0.0-0.2) Sodium Level 132 mmol/L (136-145) Potassium Level 4.0 mmol/L (3.5-5.1) Chloride Level 95 mmol/L (98-107) Carbon Dioxide Level 25 mmol/L (21-32) Anion Gap 12 (6-14) Blood Urea Nitrogen 26 mg/dL (7-20) Creatinine 1.9 mg/dL (0.6-1.0) Estimated GFR (Cockcroft-Gault) 30.3 BUN/Creatinine Ratio 14 (6-20) Glucose Level 556 mg/dL (70-99) Calcium Level 9.0 mg/dL (8.5-10.1) Magnesium Level 1.9 mg/dL (1.8-2.4) Total Bilirubin 0.5 mg/dL (0.2-1.0) Aspartate Amino Transf (AST/SGOT) 10 U/L (15-37) Alanine Aminotransferase (ALT/SGPT) 16 U/L (14-59) Alkaline Phosphatase 114 U/L (46-116) Total Protein 7.2 g/dL (6.4-8.2) Albumin 3.3 g/dL (3.4-5.0) Albumin/Globulin Ratio 0.8 (1.0-1.7) Glucose (Fingerstick) 264 mg/dL (70-99) 169 mg/dL (70-99) Urine Collection Type Unknown Urine Color Yellow Urine Clarity Clear Urine pH 6.0 Urine Specific [place] 1.020 Urine Protein Negative mg/dL (NEG-TRACE) Urine Glucose (UA) >=1000 mg/dL (NEG) Urine Ketones (Stick) Negative mg/dL (NEG) Urine Blood Trace (NEG) Urine Nitrite Positive (NEG) Urine Bilirubin Negative (NEG) Urine Urobilinogen Dipstick 0.2 mg/dL (0.2 mg/dL) Urine Leukocyte Esterase Moderate (NEG) Urine RBC 1-2 /HPF (0-2) Urine WBC Tntc /HPF (0-4) Urine Squamous Epithelial Cells None /LPF Urine Bacteria Moderate /HPF (0-FEW) Test 10/07/18 07:38 10/07/18 11:09 10/07/18 16:47 10/07/18 20:18 Glucose (Fingerstick) 209 mg/dL (70-99) 313 mg/dL (70-99) 355 mg/dL (70-99) 381 mg/dL (70-99) Laboratory Tests Test 10/07/18 07:38 10/07/18 11:09 10/07/18 16:47 10/07/18 20:18 Glucose (Fingerstick) 209 mg/dL (70-99) 313 mg/dL (70-99) 355 mg/dL (70-99) 381 mg/dL (70-99) Medications Current Medications Sodium Chloride 1,000 ml @ 1,000 mls/hr Q1H IV Last administered on 10/07/18at 01:44; Start 10/07/18 at 01:00; Stop 10/07/18 at 01:59; Status DC Insulin Human Regular (HumuLIN R VIAL) 10 unit 1X ONCE IV Last administered on 10/07/18at 01:50; Start 10/07/18 at 01:00; Stop 10/07/18 at 01:01; Status DC Tramadol HCl (Ultram) 50 mg 1X ONCE PO ; Start 10/07/18 at 02:30; Stop 10/07/18 at 02:31; Status DC Ceftriaxone Sodium (Rocephin) 1 gm 1X ONCE IVP Last administered on 10/07/18at 04:26; Start 10/07/18 at 04:00; Stop 10/07/18 at 04:36; Status DC Sodium Chloride 1,000 ml @ 100 mls/hr Q10H IV Last administered on 10/07/18at 05 :44; Start 10/07/18 at 04:15; Stop 10/08/18 at 04:14; Status DC Insulin Human Lispro (HumaLOG) 0-7 UNITS TIDWMEALS SQ Last administered on at 17:03; Start 10/07/18 at 08:00 Dextrose (Dextrose 50%-Water Syringe) 12.5 gm PRN Q15MIN PRN IV SEE COMMENTS; Start 10/07/18 at 04:30 Ceftriaxone Sodium (Rocephin) 1 gm Q24H IVP ; Start 10/08/18 at 07:00; Stop at 07:00; Status DC Amlodipine Besylate (Norvasc) 10 mg DAILY PO Last administered on 10/07/18at 09: 07; Start 10/07/18 at 09:00 Insulin Glargine (Lantus) 15 units HS SQ Last administered on 10/07/18at 21:25; Start 10/07/18 at 21:00 Anastrozole (Arimidex) 1 mg DAILY PO Last administered on 10/07/18at 09:09; Start 10/07/18 at 09:00 Pantoprazole Sodium (Protonix) 40 mg DAILYAC PO Last administered on 10/07/18at 09:07; Start 10/07/18 at 08:00 Heparin Sodium (Porcine) (Heparin Sodium) 5,000 unit Q8HRS SQ Last administered on 10/08/18at 06:12; Start 10/07/18 at 14:00 Insulin Human Lispro (HumaLOG) 3 units TIDAC SQ ; Start 10/07/18 at 17:30 Lidocaine HCl (Glydo (Lidocaine) Jelly) 1 cory 1X ONCE TP Last administered on 10/07/18at 17:12; Start 10/07/18 at 17:30; Stop 10/07/18 at 17:31; Status DC Amoxicillin/ Clavulanate Potassium (Augmentin 875/ 125mg) 1 tab BID PO ; Start 10/08/18 at 09:00 Active Scripts Active Cephalexin 500 Mg Capsule 1 Cap PO QID Reported Omeprazole 40 Mg Capsule.dr 40 Mg PO DAILY Avapro (Irbesartan) 300 Mg Tablet 300 Mg PO DAILY Lantus Solostar (Insulin Glargine,Hum.rec.anlog) 100 Unit/1 Ml Insuln.pen 15 Unit SQ HS Indapamide 1.25 Mg Tablet 1.25 Mg PO DAILY Diabeta (Glyburide) 5 Mg Tablet 5 Mg PO DAILY Arimidex (Anastrozole) 1 Mg Tablet 1 Mg PO DAILY Norvasc (Amlodipine Besylate) 10 Mg Tablet 10 Mg PO DAILY Vitals/I & O Vital Sign - Last 24 Hours 10/07/18 10/07/18 10/07/18 10/07/18 08:00 09:07 11:00 15:00 Temp 98.0 97.9 98.0 97.9 Pulse 68 77 79 Resp 16 18 B/P (MAP) 115/59 138/73 (94) 133/70 (91) Pulse Ox 97 98 O2 Delivery Room Air Room Air Room Air 4/12/2010/07/18 10/07/18 10/08/18 19:00 20:00 23:00 03:00 Temp 97.3 97.9 97.9 97.3 97.9 97.9 Pulse 87 61 68 Resp 18 18 18 B/P (MAP) 176/83 (114) 109/57 (74) 63/57 (59) Pulse Ox 98 99 99 O2 Delivery Room Air Room Air Room Air Room Air Intake and Output 10/07/18 10/07/18 10/08/18 15:00 23:00 07:00 Intake Total 1150 ml 240 ml Balance 1150 ml 240 ml RALPH FLEMING MD Oct 08, 2018 07:36
[2018-10-08] MEDS: AMOXICILLIN/K CLAV 875/125MG TABLET. PO SCH ×2 (08:22→21:03)
[2018-10-08] MEDS: amLODIPine BESYLATE 10 MG TABLET PO SCH (08:23)
[2018-10-08] MEDS: PANTOPRAZOLE 40 MG TABLET.DR. PO SCH (08:23)
[2018-10-08] MEDS: ANASTROZOLE 1 MG TABLET PO SCH (08:26)
[2018-10-08 09:25] LABS: ALBUMIN 3.1 g/dL (3.4-5.0); CREATININE 1.3 mg/dL (0.6-1.0); PHOSPHORUS 2.7 mg/dL (2.6-4.7); POTASSIUM 3.4 mmol/L (3.5-5.1)
[2018-10-08] MEDS ORDERED: POTASSIUM CHLORIDE 20 MEQ TABLET.ER. PO ONE (10:00)
[2018-10-08 11:00] VITALS: BP 132/80
[2018-10-08 15:00] VITALS: BP 117/53
[2018-10-08 19:00] VITALS: BP 112/46
[2018-10-08] MEDS: INSULIN GLARGINE 300 UNITS/3 ML INSULN.PEN. SQ SCH (21:09)
[2018-10-08 23:00] VITALS: BP 106/62
[2018-10-09 03:00] VITALS: BP 111/60
[2018-10-09] MEDS: PANTOPRAZOLE 40 MG TABLET.DR. PO SCH (05:26)
[2018-10-09] MEDS: HEPARIN for SUB-Q USE 5,000 UNIT/ML VIAL. SQ SCH ×3 (05:31→21:41)
[2018-10-09 06:19] LABS: ALBUMIN 2.4 g/dL (3.4-5.0); CALCIUM 8.6 mg/dL (8.5-10.1); CREATININE 1.4 mg/dL (0.6-1.0); GFR 43.1; PHOSPHORUS 2.3 mg/dL (2.6-4.7); POTASSIUM 3.9 mmol/L (3.5-5.1)
[2018-10-09 07:00] VITALS: BP 114/66
[2018-10-09] MEDS: INSULIN LISPRO 300 UNITS/3 ML INSULN.PEN. SQ SCH ×3 (07:52→17:39)
[2018-10-09] MEDS: ANASTROZOLE 1 MG TABLET PO SCH (09:00)
[2018-10-09] MEDS: AMOXICILLIN/K CLAV 875/125MG TABLET. PO SCH (09:17)
[2018-10-09] MEDS: glyBURIDE 5 MG TABLET PO SCH (09:17)
[2018-10-09] MEDS: amLODIPine BESYLATE 10 MG TABLET PO SCH (09:17)
--- NOTE | 2018-10-09 09:33 | NUR ---
SW consulted to address concern about living condition and possible placement. Chart reviewed and discussed with Pt's grandsonVikas, phone: [phone] via phone. Vikas reported pt has had difficulty taking care of her self at home and was not taking her medication. He reports pt had fallen at home and he is concerned that she is not able to live by herself any more. ZENAIDA extensively discussed SNU, LTC and insurance coverage. SW also discussed various SNU/LTC options with grandhugh and he is agreeable with SW sending referrals to initiate LTC placement with preferable [facility]. ZENAIDA phoned and faxed referral to [facility], [facility], [facility], [facility] and [facility]. Pt admission and acceptance pending. ZENAIDA will continue to follow. Discussed with RN. Addendum: 10/09/18 at 1155 by STACY ESTEVEZ Spoke with pt about SNU and LTC. Pt believes she is fine going home but SW discussed concerns about her living at home and recent falls. Pt believes all her symptoms are side effect of a medication she was taking. SW encouraged pt to consider SNU/LTC and pt wants to discuss with grandhugh again. SW spoke with grandhugh and encouraged him to have these conversation with pt. Pt currently has been accepted at [facility] and [facility]. Pt's son requested for [facility] and they do not have LTC beds at this time.
--- NOTE | 2018-10-09 10:16 | PDOC ---
PROGRESS NOTES Chief Complaint Chief Complaint A/P: Acute encephalopathy - resolved UTI -resistant. To Augmentin and Rocephin FREDIS - likely 2/2 vasomotor nephropathy H/o breast cancer - cont arimidex HTN - cont amlodipine, hold arb and diuretic Labile DM History of Present Illness History of Present Illness Feels well Urine culture apparently is resistant to Augmentin and penicillin Otherwise she is agreeable to SNU and I have discussed with social work PT recommend some placement [facility] labile diabetes, blood sugars can be as low as 60 to as high as 300+ She is on 15 daily at bedtime and 6 3 times a day with meals Plan: clean up of home meds, she takes something and does not takes other things Social work consult for placement DC tomorrow placement Await urine culture sensitivities or identification - resistant to PCN so far Change to levaquin for now Vitals Vitals Vital Signs Date Time Temp Pulse Resp B/P (MAP) Pulse Ox O2 Delivery O2 Flow Rate FiO2 10/09/18 09:17 70 114/66 10/09/18 07:00 98.1 18 97 Room Air 98.1 Physical Exam General: Alert, Cooperative, No acute distress Heart: Regular rate, Normal S1, Normal S2 Lungs: Clear Abdomen: Normal bowel sounds, Soft, No tenderness, No hepatosplenomegaly, No masses Extremities: No clubbing, No cyanosis, No edema, Normal pulses, No tenderness/ swelling Skin: No rashes, No breakdown, No significant lesion Labs LABS Laboratory Tests Test 10/08/18 11:19 10/08/18 16:54 10/08/18 19:46 10/09/18 05:10 Glucose (Fingerstick) 201 mg/dL (70-99) 360 mg/dL (70-99) 192 mg/dL (70-99) Sodium Level 141 mmol/L (136-145) Potassium Level 3.9 mmol/L (3.5-5.1) Chloride Level 106 mmol/L (98-107) Carbon Dioxide Level 25 mmol/L (21-32) Anion Gap 10 (6-14) Blood Urea Nitrogen 19 mg/dL (7-20) Creatinine 1.4 mg/dL (0.6-1.0) Estimated GFR (Cockcroft-Gault) 43.1 Glucose Level 65 mg/dL (70-99) Calcium Level 8.6 mg/dL (8.5-10.1) Phosphorus Level 2.3 mg/dL (2.6-4.7) Albumin 2.4 g/dL (3.4-5.0) Test 10/09/18 06:39 10/09/18 06:50 10/09/18 07:48 Glucose (Fingerstick) 62 mg/dL (70-99) 90 mg/dL (70-99) 290 mg/dL (70-99) Review of Systems Review of Systems A 14 point ROS was completed with the following noted as positive: Other systems reviewed and negative. \CONSTITUTIONAL: No fever or chills EYES: No recent changes SKIN: No rash or itching CARDIOVASCULAR: No chest pain, syncope, palpitations, or edema RESPIRATORY: No SOB or cough GASTROINTESTINAL: No nausea, vomiting or abdominal pain NEUROLOGICAL: No headaches or weakness ENDOCRINE: No cold or heat intolerance GENITOURINARY: No urgency or frequency of urination MUSCULOSKELETAL: No back pain or joint pain LYMPHATICS: No enlarged lymph nodes PSYCHIATRIC: No anxiety or depression Assessment and Plan Assessmemt and Plan Problems Medical Problems: (1) Urinary tract infection Status: Acute Comment Review of Relevant I have reviewed the following items meg (where applicable) has been applied. Labs Laboratory Tests Test 10/07/18 11:09 10/07/18 16:47 10/07/18 20:18 10/08/18 07:40 Glucose (Fingerstick) 313 mg/dL (70-99) 355 mg/dL (70-99) 381 mg/dL (70-99) 81 mg/dL (70-99) Test 10/08/18 08:40 10/08/18 11:19 10/08/18 16:54 10/08/18 19:46 Sodium Level 138 mmol/L (136-145) Potassium Level 3.4 mmol/L (3.5-5.1) Chloride Level 103 mmol/L (98-107) Carbon Dioxide Level 25 mmol/L (21-32) Anion Gap 10 (6-14) Blood Urea Nitrogen 19 mg/dL (7-20) Creatinine 1.3 mg/dL (0.6-1.0) Estimated GFR (Cockcroft-Gault) 47.0 Glucose Level 194 mg/dL (70-99) Calcium Level 9.0 mg/dL (8.5-10.1) Phosphorus Level 2.7 mg/dL (2.6-4.7) Albumin 3.1 g/dL (3.4-5.0) Glucose (Fingerstick) 201 mg/dL (70-99) 360 mg/dL (70-99) 192 mg/dL (70-99) Test 10/09/18 05:10 10/09/18 06:39 10/09/18 06:50 10/09/18 07:48 Sodium Level 141 mmol/L (136-145) Potassium Level 3.9 mmol/L (3.5-5.1) Chloride Level 106 mmol/L (98-107) Carbon Dioxide Level 25 mmol/L (21-32) Anion Gap 10 (6-14) Blood Urea Nitrogen 19 mg/dL (7-20) Creatinine 1.4 mg/dL (0.6-1.0) Estimated GFR (Cockcroft-Gault) 43.1 Glucose Level 65 mg/dL (70-99) Calcium Level 8.6 mg/dL (8.5-10.1) Phosphorus Level 2.3 mg/dL (2.6-4.7) Albumin 2.4 g/dL (3.4-5.0) Glucose (Fingerstick) 62 mg/dL (70-99) 90 mg/dL (70-99) 290 mg/dL (70-99) Laboratory Tests Test 10/08/18 11:19 10/08/18 16:54 10/08/18 19:46 10/09/18 05:10 Glucose (Fingerstick) 201 mg/dL (70-99) 360 mg/dL (70-99) 192 mg/dL (70-99) Sodium Level 141 mmol/L (136-145) Potassium Level 3.9 mmol/L (3.5-5.1) Chloride Level 106 mmol/L (98-107) Carbon Dioxide Level 25 mmol/L (21-32) Anion Gap 10 (6-14) Blood Urea Nitrogen 19 mg/dL (7-20) Creatinine 1.4 mg/dL (0.6-1.0) Estimated GFR (Cockcroft-Gault) 43.1 Glucose Level 65 mg/dL (70-99) Calcium Level 8.6 mg/dL (8.5-10.1) Phosphorus Level 2.3 mg/dL (2.6-4.7) Albumin 2.4 g/dL (3.4-5.0) Test 10/09/18 06:39 10/09/18 06:50 10/09/18 07:48 Glucose (Fingerstick) 62 mg/dL (70-99) 90 mg/dL (70-99) 290 mg/dL (70-99) Microbiology 10/07/18 Urine Culture - Final, Complete 10/07/18 Urine Culture Result 1 (RODERICK) - Final, Complete Medications Current Medications Sodium Chloride 1,000 ml @ 1,000 mls/hr Q1H IV Last administered on 10/07/18at 01:44; Start 10/07/18 at 01:00; Stop 10/07/18 at 01:59; Status DC Insulin Human Regular (HumuLIN R VIAL) 10 unit 1X ONCE IV Last administered on 10/07/18at 01:50; Start 10/07/18 at 01:00; Stop 10/07/18 at 01:01; Status DC Tramadol HCl (Ultram) 50 mg 1X ONCE PO ; Start 10/07/18 at 02:30; Stop 10/07/18 at 02:31; Status DC Ceftriaxone Sodium (Rocephin) 1 gm 1X ONCE IVP Last administered on 10/07/18at 04:26; Start 10/07/18 at 04:00; Stop 10/07/18 at 04:36; Status DC Sodium Chloride 1,000 ml @ 100 mls/hr Q10H IV Last administered on 10/07/18at 05 :44; Start 10/07/18 at 04:15; Stop 10/08/18 at 04:14; Status DC Insulin Human Lispro (HumaLOG) 0-7 UNITS TIDWMEALS SQ Last administered on at 07:52; Start 10/07/18 at 08:00 Dextrose (Dextrose 50%-Water Syringe) 12.5 gm PRN Q15MIN PRN IV SEE COMMENTS; Start 10/07/18 at 04:30 Ceftriaxone Sodium (Rocephin) 1 gm Q24H IVP ; Start 10/08/18 at 07:00; Stop at 07:00; Status DC Amlodipine Besylate (Norvasc) 10 mg DAILY PO Last administered on 10/09/18at 09: 17; Start 10/07/18 at 09:00 Insulin Glargine (Lantus) 15 units HS SQ Last administered on 10/08/18at 21:09; Start 10/07/18 at 21:00 Anastrozole (Arimidex) 1 mg DAILY PO Last administered on 10/08/18 08:26; Start 10/07/18 at 09:00 Pantoprazole Sodium (Protonix) 40 mg DAILYAC PO Last administered on 10/09/18 05:26; Start 10/07/18 at 08:00 Heparin Sodium (Porcine) (Heparin Sodium) 5,000 unit Q8HRS SQ Last administered on 10/09/18 05:31; Start 10/07/18 at 14:00 Insulin Human Lispro (HumaLOG) 3 units TIDAC SQ ; Start 10/07/18 at 17:30; Stop 10/08/18 at 07:35; Status DC Lidocaine HCl (Glydo (Lidocaine) Jelly) 1 cory 1X ONCE TP Last administered on 10/07/18at 17:12; Start 10/07/18 at 17:30; Stop 10/07/18 at 17:31; Status DC Amoxicillin/ Clavulanate Potassium (Augmentin 875/ 125mg) 1 tab BID PO Last administered on 10/09/18 09:17; Start 10/08/18 at 09:00 Insulin Human Lispro (HumaLOG) 6 units TIDAC SQ Last administered on 10/08/18 17:01; Start 10/08/18 at 07:30; Stop 10/09/18 at 07:40; Status DC Potassium Chloride (Klor-Con) 40 meq 1X ONCE PO Last administered on 10/08/18at 10:17; Start 10/08/18 at 10:00; Stop 10/08/18 at 10:01; Status DC Glyburide (Diabeta) 5 mg DAILYWBKFT PO Last administered on 10/09/18at 09:17; Start 10/09/18 at 08:00 Active Scripts Active Cephalexin 500 Mg Capsule 1 Cap PO QID Reported Omeprazole 40 Mg Capsule.dr 40 Mg PO DAILY Avapro (Irbesartan) 300 Mg Tablet 300 Mg PO DAILY Lantus Solostar (Insulin Glargine,Hum.rec.anlog) 100 Unit/1 Ml Insuln.pen 15 Unit SQ HS Indapamide 1.25 Mg Tablet 1.25 Mg PO DAILY Diabeta (Glyburide) 5 Mg Tablet 5 Mg PO DAILY Arimidex (Anastrozole) 1 Mg Tablet 1 Mg PO DAILY Norvasc (Amlodipine Besylate) 10 Mg Tablet 10 Mg PO DAILY Vitals/I & O Vital Sign - Last 24 Hours 10/08/18 10/08/18 10/08/18 10/08/18 11:00 15:00 19:00 20:09 Temp 98.4 98.3 98.5 98.4 98.3 98.5 Pulse 75 77 80 Resp 16 18 18 B/P (MAP) 132/80 (97) 117/53 (74) 112/46 (68) Pulse Ox 98 98 97 O2 Delivery Room Air Room Air Room Air Room Air 10/08/18 10/09/18 10/09/18 10/09/18 23:00 03:00 07:00 09:17 Temp 98.3 98.3 98.1 98.3 98.3 98.1 Pulse 73 71 70 70 Resp 18 18 18 B/P (MAP) 106/62 (77) 111/60 (77) 114/66 (82) 114/66 Pulse Ox 97 96 97 O2 Delivery Room Air Room Air Room Air Intake and Output 10/08/18 10/08/18 10/09/18 14:59 22:59 06:59 Intake Total 0 ml 240 ml Balance 0 ml 240 ml YELENA MCCULLOUGH MD Oct 09, 2018 10:16
[2018-10-09 10:40] VITALS: BP 142/67
--- NOTE | 2018-10-09 13:23 | NUR ---
SW following pt. Pt has been accepted at [facility], [facility], [facility] and [facility]. Discussed with Pt's grandson via phone. He reported he will visit the mentioned facilities today and speak with pt as well. Will continue to follow.
[2018-10-09 14:38] VITALS: BP 114/59
--- NOTE | 2018-10-09 16:30 | NUR ---
Assumed patient care at 1600, agree with prior nursing assessment. Will continue to monitor until shift change.
[2018-10-09 19:00] VITALS: BP 124/64
[2018-10-09] MEDS: INSULIN GLARGINE 300 UNITS/3 ML INSULN.PEN. SQ SCH (21:40)
[2018-10-09 22:55] VITALS: BP 137/55
[2018-10-10 03:00] VITALS: BP 146/80
[2018-10-10] MEDS: HEPARIN for SUB-Q USE 5,000 UNIT/ML VIAL. SQ SCH ×2 (04:50→15:17)
[2018-10-10 07:00] VITALS: BP 148/79
[2018-10-10] MEDS: PANTOPRAZOLE 40 MG TABLET.DR. PO SCH (08:21)
[2018-10-10] MEDS: glyBURIDE 5 MG TABLET PO SCH (08:21)
[2018-10-10] MEDS: amLODIPine BESYLATE 10 MG TABLET PO SCH (08:22)
[2018-10-10] MEDS: INSULIN LISPRO 300 UNITS/3 ML INSULN.PEN. SQ SCH ×2 (08:28→12:00)
--- NOTE | 2018-10-10 08:29 | SNU/HH DC ---
DISCHARGE ORDERS DISCHARGE INFORMATION: DISCHARGE DATE: Oct 10, 2018 FINAL DIAGNOSIS Problems Medical Problems: (1) Urinary tract infection Status: Acute CONDITION ON DISCHARGE: Stable CODE STATUS: Code Status: Full CUSTODIAL: SNF STAY <30 DAYS: Yes HOSPICE: HOSPICE: No HOSPICE EVAL & TREAT: No LTAC: ADMIT TO LTAC: No POST DISCHARGE ORDERS: ACTIVITY ORDERS: Resume previous activity WEIGHT BEARING STATUS: As tolerated DIET AFTER DISCHARGE: Regular CHECKS AFTER DISCHARGE: CHECKS AFTER DISCHARGE: Check blood press - daily FOLLOW-UP: PHYSICIAN FOLLOW-UP: dr Williamson as prev scheduled TREATMENT/EQUIPMENT ORDERS: Physical Therapy For: Evalulation/Treatment Occupational Therapy For: Evaluation/Treatment DISCHARGE MEDICATIONS: Home Meds Active Scripts Cephalexin (CEPHALEXIN) 500 Mg Capsule, 1 CAP PO QID, #40 CAP Prov:DUY QUINTERO MD 10/04/18 Reported Medications Omeprazole (OMEPRAZOLE) 40 Mg Capsule.dr, 40 MG PO DAILY, CAP 08/21/14 Irbesartan (AVAPRO) 300 Mg Tablet, 300 MG PO DAILY, TAB 08/21/14 Insulin Glargine,Hum.rec.anlog (LANTUS SOLOSTAR) 100 Unit/1 Ml Insuln.pen, 15 UNIT SQ HS for diabetes, SYR 08/21/14 Indapamide (INDAPAMIDE) 1.25 Mg Tablet, 1.25 MG PO DAILY for htn 08/21/14 Glyburide (DIABETA) 5 Mg Tablet, 5 MG PO DAILY, TAB 08/21/14 Anastrozole (ARIMIDEX) 1 Mg Tablet, 1 MG PO DAILY for breast ca 08/21/14 Amlodipine Besylate (NORVASC) 10 Mg Tablet, 10 MG PO DAILY, TAB 08/21/14 YELENA MCCULLOUGH MD Oct 10, 2018 08:29
[2018-10-10] MEDS ORDERED: EXEMESTANE 25 MG PO SCH (09:00)
[2018-10-10 11:00] VITALS: BP 130/70
--- NOTE | 2018-10-10 11:04 | PDOC3 ---
Discharge Summary Visit Information Date of Admission: Oct 07, 2018 Date of Discharge: Oct 10, 2018 Admitting Diagnosis Comment: Acute encephalopathy - resolved no UTI - normal shay on urine cx FREDIS - likely 2/2 vasomotor nephropathy H/o breast cancer - cont arimidex HTN - cont amlodipine, hold arb and diuretic Labile DM Final Diagnosis Problems Medical Problems: (1) Urinary tract infection Status: Acute Brief Hospital Course Allergies Allergies Coded Allergies Type Severity Reaction Last Updated Verified codeine Allergy Unknown 08/21/14 Yes Vital Signs Vital Signs Date Time Temp Pulse Resp B/P (MAP) Pulse Ox O2 Delivery O2 Flow Rate FiO2 10/10/18 08:22 97 148/79 10/10/18 08:00 Room Air 10/10/18 07:00 98.1 18 96 98.1 Lab Results Laboratory Tests Test 10/08/18 11:19 10/08/18 16:54 10/08/18 19:46 10/09/18 05:10 Glucose (Fingerstick) 201 mg/dL (70-99) 360 mg/dL (70-99) 192 mg/dL (70-99) Sodium Level 141 mmol/L (136-145) Potassium Level 3.9 mmol/L (3.5-5.1) Chloride Level 106 mmol/L (98-107) Carbon Dioxide Level 25 mmol/L (21-32) Anion Gap 10 (6-14) Blood Urea Nitrogen 19 mg/dL (7-20) Creatinine 1.4 mg/dL (0.6-1.0) Estimated GFR (Cockcroft-Gault) 43.1 Glucose Level 65 mg/dL (70-99) Calcium Level 8.6 mg/dL (8.5-10.1) Phosphorus Level 2.3 mg/dL (2.6-4.7) Albumin 2.4 g/dL (3.4-5.0) Test 10/09/18 06:39 10/09/18 06:50 10/09/18 07:48 10/09/18 11:00 Glucose (Fingerstick) 62 mg/dL (70-99) 90 mg/dL (70-99) 290 mg/dL (70-99) 119 mg/dL (70-99) Test 10/09/18 16:25 10/09/18 20:43 10/10/18 04:17 10/10/18 04:27 Glucose (Fingerstick) 167 mg/dL (70-99) 239 mg/dL (70-99) 56 mg/dL (70-99) 68 mg/dL (70-99) Test 10/10/18 04:41 10/10/18 05:05 10/10/18 07:28 10/10/18 07:55 Glucose (Fingerstick) 68 mg/dL (70-99) 128 mg/dL (70-99) 325 mg/dL (70-99) Platelet Count 204 x10^3/uL (140-400) Test 10/10/18 09:42 Glucose (Fingerstick) 165 mg/dL (70-99) Laboratory Tests Test 10/09/18 16:25 10/09/18 20:43 10/10/18 04:17 10/10/18 04:27 Glucose (Fingerstick) 167 mg/dL (70-99) 239 mg/dL (70-99) 56 mg/dL (70-99) 68 mg/dL (70-99) Test 10/10/18 04:41 10/10/18 05:05 10/10/18 07:28 10/10/18 07:55 Glucose (Fingerstick) 68 mg/dL (70-99) 128 mg/dL (70-99) 325 mg/dL (70-99) Platelet Count 204 x10^3/uL (140-400) Test 10/10/18 09:42 Glucose (Fingerstick) 165 mg/dL (70-99) Brief Hospital Course Ms. Gama is a 88 old [place] Turkish female follows with Dr. Williamson for breast cancer she is on a chemotherapy pill. She is doing well in that regard. She was admitted because of encephalopathy and initial thoughts of UTI but urine culture turned out to be normal shay. She will not go home with any new meds-she will continue on her home meds She had an element of AK I and labile DM on admission. But now she is back to her home regimen which is a low-dose Lantus at night and OHA during mealtimes Again discharge disposition to SNU-she came from home No change in meds Instructions follow-up with Dr. Williamson as previously scheduled Discharge Information Condition at Discharge: Improved, Stable Disposition/Orders: Other (snu) Scheduled Amlodipine Besylate (Norvasc) 10 Mg Tablet, 10 MG PO DAILY, (Reported) Entered as Reported by: Bernadette Ellis on 08/21/141046 Last Action: Continued on 10/07/18742 by RALPH FLEMING MD Anastrozole (Arimidex) 1 Mg Tablet, 1 MG PO DAILY for breast ca, (Reported) Entered as Reported by: Bernadette Ellis on 08/21/141046 Last Action: Converted on 10/07/18742 by RALPH FLEIMNG MD Cephalexin (Cephalexin) 500 Mg Capsule, 1 CAP PO QID, #40 Prescribed by: DUY QUINTERO MD on 10/04/181403 Last Action: HELD on 10/09/18738 by YELENA MCCULLOUGH Glyburide (Diabeta) 5 Mg Tablet, 5 MG PO DAILY, (Reported) Entered as Reported by: eBrnadette Ellis on 08/21/141046 Last Action: Continued on 10/09/18738 by YELENA MCCULLOUGH Indapamide (Indapamide) 1.25 Mg Tablet, 1.25 MG PO DAILY for htn, (Reported) Entered as Reported by: Bernadette Ellis on 08/21/141046 Last Action: HELD on 10/09/18738 by YELENA MCCULLOUGH Insulin Glargine,Hum.rec.anlog (Lantus Solostar) 100 Unit/1 Ml Insuln.pen, 15 UNIT SQ HS for diabetes, (Reported) Entered as Reported by: Bernadette Ellis on 08/21/141046 Last Action: Continued on 10/07/18742 by RALPH FLEMING MD Irbesartan (Avapro) 300 Mg Tablet, 300 MG PO DAILY, (Reported) Entered as Reported by: Bernadette Ellis on 08/21/141046 Last Action: HELD on 10/09/18738 by YELENA MCCULLOUGH Omeprazole (Omeprazole) 40 Mg Capsule.dr, 40 MG PO DAILY, (Reported) Entered as Reported by: Bernadette Ellis on 08/21/141046 Last Action: Converted on 10/07/18742 by MD SADIA JIM CHERRIE Y MD Oct 10, 2018 11:04
--- NOTE | 2018-10-10 12:23 | NUR ---
SW following pt. Pt and pt's grandchildren/DPOA (Vikas Fields) chose [facility]. Pt's choice and rights forms consented via phone by Vikas and copies placed on chart. SW spoke with pt at bedside and discussed in great length going home is not a safe options and SNU might be a better option at this time. Pt agreeable and reported she will give it a try. Orders faxed to [facility] and [facility] on chart. Pt will transport via facility w/c van between [id number]. CARLO GONZÁLES.
[2018-10-10 15:05] VITALS: BP 135/72
--- NOTE | 2018-10-10 15:31 | NUR ---
Report called to receiving nurse Preethi at [facility]. Pt dismissed to [facility] per [facility] w/c van at 1530. 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
[2018-11-24] MEDS ORDERED: GLIP5TAB10 PO (18:26)
[2018-11-24] MEDS ORDERED: INSU100C4 SQ (18:26)
[2018-11-24] MEDS ORDERED: EXEM25TA2 PO (18:37)
== END 2018-10-10 15:30 | DRG 637 ==
LOC: ER 00:42 → 5 NORTH 04:00
PROVIDERS: ADMIT Internal Medicine; ATTEND Internal Medicine
DX: E11.65 Type 2 diabetes mellitus with hyperglycemia (principal); N17.0 Acute kidney failure with tubular necrosis; G93.40 Encephalopathy, unspecified; E87.6 Hypokalemia; E11.42 Type 2 diabetes mellitus with diabetic polyneuropathy; C50.919 Malignant neoplasm of unspecified site of unspecified female breast; I10 Essential (primary) hypertension; Z79.4 Long term (current) use of insulin; Z79.811 Long term (current) use of aromatase inhibitors; Z79.899 Other long term (current) drug therapy; Z85.3 Personal history of malignant neoplasm of breast
CPT/HCPCS: 36415; 70450; 71045; 80053; 80069; 81001; 82962; 83735; 85025; 85049; 87086; 87186; 93005; 96361; 96374; 96375; J0696; J1644; J1815; J7030; 97116; 99285-25

== ENCOUNTER 2019-04-19 13:00 | Inpatient (IN) | payer MEDICARE, MEDICAID ==
[~2019-04-19] VITALS: Ht 160 cm; Wt 61.7 kg
[~2019-04-19 13:00] MED LIST changes: +EXEM25TA2 PO; +GLIP5TAB10 PO; +INSU100C4 SQ; +OMEP40CA45 PO; -OMEP40CA5 PO
[2019-04-19] MEDS ORDERED: IV NORMAL SALINE 500ML BAG 500 ML IV ONE (14:00)
[2019-04-19 14:08] LABS: BASO # 0.1 x10^3/uL (0.0-0.2); BASO % 1 % (0-3); EOS # 0.1 x10^3/uL (0.0-0.7); EOS % 1 % (0-3); HEMATOCRIT 35.2 % (36.0-47.0); HEMOGLOBIN 11.5 g/dL (12.0-15.5); LYMPH # 0.9 x10^3/uL (1.0-4.8); LYMPH % 9 % (24-48); MEAN CORPUSCULAR HEMOGLOBIN 28 pg (25-35); MEAN CORPUSCULAR HGB CONC 33 g/dL (31-37); MEAN CORPUSCULAR VOLUME 86 fL (79-100); MONO # 0.8 x10^3/uL (0.0-1.1); MONO % 9 % (0-9); NEUT # 7.3 x10^3/uL (1.8-7.7); NEUT % 80 % (31-73); PLATELET COUNT 168 x10^3/uL (140-400); RED BLOOD COUNT 4.11 x10^6/uL (3.50-5.40); RED CELL DISTRIBUTION WIDTH 14.8 % (11.5-14.5); WHITE BLOOD COUNT 9.2 x10^3/uL (4.0-11.0)
[2019-04-19] MEDS ORDERED: INSULIN REGULAR 100 UNIT/ML 3ML VIAL. IV ONE (14:15)
[2019-04-19 14:23] LABS: ALBUMIN 3.7 g/dL (3.4-5.0); ALBUMIN/GLOBULIN RATIO 0.9 (1.0-1.7); CREATININE 4.4 mg/dL (0.6-1.0); GFR 11.5; MAGNESIUM 2.4 mg/dL (1.8-2.4); POTASSIUM 4.7 mmol/L (3.5-5.1); TOTAL BILIRUBIN 0.5 mg/dL (0.2-1.0); TOTAL PROTEIN 7.9 g/dL (6.4-8.2)
--- NOTE | 2019-04-19 14:57 | PHYS DOC ---
Past Medical History Past Medical History: Diabetes-Type II, Other Additional Past Medical Histor: BREAST CA Past Surgical History: Other Additional Past Surgical Histo: L. BIG TOE Alcohol Use: None Drug Use: None Adult General Chief Complaint Chief Complaint: HYPERGLYCEMIA HPI HPI Patient is a 89 year old female who presents with complaining of high blood sugar. Patient states she checked her blood sugar before getting her lunch and her blood sugar was more than 700. Patient denies headache, dizziness, weakness, nausea and vomiting, abdominal pain, focal neuro deficit, urinary symptoms but because of high blood sugar decided to come to ER. She lives with her family member and her family stated she usually forgets to take her insulin. Review of Systems Review of Systems Constitutional: Denies fever or chills [] Eyes: Denies change in visual acuity, redness, or eye pain [] HENT: Denies nasal congestion or sore throat [] Respiratory: Denies cough or shortness of breath [] Cardiovascular: No additional information not addressed in HPI [] GI: Denies abdominal pain, nausea, vomiting, bloody stools or diarrhea [] : Denies dysuria or hematuria [] Musculoskeletal: Denies back pain or joint pain [] Integument: Denies rash or skin lesions [] Neurologic: Denies headache, focal weakness or sensory changes [] Endocrine: Denies polyuria or polydipsia [] All other systems were reviewed and found to be within normal limits, except as documented in this note. Current Medications Current Medications Current Medications Medications (Trade) Dose Ordered Sig/Markell Start Time Stop Time Status Last Admin Dose Admin Insulin Human Regular (HumuLIN R VIAL) 10 unit 1X ONCE 04/19/19 14:15 04/19/19 14:16 DC 04/19/19 15:34 10 UNIT Sodium Chloride 500 ml @ 500 mls/hr 1X ONCE 04/19/19 14:00 04/19/19 14:59 DC 04/19/19 14:00 500 MLS/HR Allergies Allergies Allergies Coded Allergies Type Severity Reaction Last Updated Verified codeine Allergy Intermediate 11/25/18 Yes Physical Exam Physical Exam Constitutional: Well developed, well nourished, no acute distress, non-toxic appearance. [] HENT: Normocephalic, atraumatic, bilateral external ears normal, oropharynx moist, no oral exudates, nose normal. [] Eyes: PERRLA, EOMI, conjunctiva normal, no discharge. [] Neck: Normal range of motion, no tenderness, supple, no stridor. [] Cardiovascular:Heart rate regular rhythm, no murmur [] Lungs & Thorax: Bilateral breath sounds clear to auscultation [] Abdomen: Bowel sounds normal, soft, no tenderness, no masses, no pulsatile masses. [] Skin: Warm, dry, no erythema, no rash. [] Back: No tenderness, no CVA tenderness. [] Extremities: No tenderness, no cyanosis, no clubbing, ROM intact. Neurologic: Alert and oriented X 3, normal motor function, normal sensory function, no focal deficits noted. [] Psychologic: Affect normal, judgement normal, mood normal. [] Current Patient Data Vital Signs Vital Signs Date Time Temp Pulse Resp B/P (MAP) Pulse Ox O2 Delivery O2 Flow Rate FiO2 04/19/19 14:17 18 167/77 (107) 96 Room Air 04/19/19 13:50 97.9 87 97.9 Lab Values Laboratory Tests Test 04/19/19 13:51 04/19/19 14:01 Glucose (Fingerstick) 585 mg/dL (70-99) *H White Blood Count 9.2 x10^3/uL (4.0-11.0) Red Blood Count 4.11 x10^6/uL (3.50-5.40) Hemoglobin 11.5 g/dL (12.0-15.5) L Hematocrit 35.2 % (36.0-47.0) L Mean Corpuscular Volume 86 fL (79-100) Mean Corpuscular Hemoglobin 28 pg (25-35) Mean Corpuscular Hemoglobin Concent 33 g/dL (31-37) Red Cell Distribution Width 14.8 % (11.5-14.5) H Platelet Count 168 x10^3/uL (140-400) Neutrophils (%) (Auto) 80 % (31-73) H Lymphocytes (%) (Auto) 9 % (24-48) L Monocytes (%) (Auto) 9 % (0-9) Eosinophils (%) (Auto) 1 % (0-3) Basophils (%) (Auto) 1 % (0-3) Neutrophils # (Auto) 7.3 x10^3/uL (1.8-7.7) Lymphocytes # (Auto) 0.9 x10^3/uL (1.0-4.8) L Monocytes # (Auto) 0.8 x10^3/uL (0.0-1.1) Eosinophils # (Auto) 0.1 x10^3/uL (0.0-0.7) Basophils # (Auto) 0.1 x10^3/uL (0.0-0.2) Sodium Level 126 mmol/L (136-145) L Potassium Level 4.7 mmol/L (3.5-5.1) Chloride Level 89 mmol/L (98-107) L Carbon Dioxide Level 25 mmol/L (21-32) Anion Gap 12 (6-14) Blood Urea Nitrogen 51 mg/dL (7-20) H Creatinine 4.4 mg/dL (0.6-1.0) H Estimated GFR (Cockcroft-Gault) 11.5 BUN/Creatinine Ratio 12 (6-20) Glucose Level 604 mg/dL (70-99) *H Calcium Level 9.0 mg/dL (8.5-10.1) Magnesium Level 2.4 mg/dL (1.8-2.4) Total Bilirubin 0.5 mg/dL (0.2-1.0) Aspartate Amino Transferase (AST) 20 U/L (15-37) Alanine Aminotransferase (ALT) 17 U/L (14-59) Alkaline Phosphatase 110 U/L (46-116) Total Protein 7.9 g/dL (6.4-8.2) Albumin 3.7 g/dL (3.4-5.0) Albumin/Globulin Ratio 0.9 (1.0-1.7) L Laboratory Tests 04/19/19 14:01 Laboratory Tests 04/19/19 14:01 EKG EKG [] Radiology/Procedures Radiology/Procedures [] Course & Med Decision Making Course & Med Decision Making Pertinent Labs reviewed. (See chart for details) Evaluation of patient in ER showed 89-year-old female patient with complaining of high blood sugar. Patient had blood sugar of 1600 in ER and treated with IV fluid and insulin. Improvement of blood sugar. Patient had increase of chronic renal insufficiency with creatinine of 4.4.patient was not able to give a urine sample. Patient requiring admission for further evaluation and treatment. Discussed with Dr. Ortiz who is in agreement with admission. Discussed findings and plan with patient and family, who acknowledge understanding and agreement. Dragon Disclaimer Dragon Disclaimer This electronic medical record was generated, in whole or in part, using a voice recognition dictation system. Departure Departure Impression: Primary Impression: Hyperglycemia Additional Impressions: Acute on chronic kidney failure Anemia Disposition: 09 ADMITTED INPATIENT (at 1539) Admitting Physician: LESLYS (Dr. Ortiz accepted admission at 1537) Condition: IMPROVED Referrals: DEE MARTINO (PCP) Problem Qualifiers Additional Impressions: Acute on chronic kidney failure Acute renal failure type: unspecified Chronic kidney disease stage: unspecified stage Qualified Codes: N17.9 - Acute kidney failure, unspecified; N18.9 - Chronic kidney disease, unspecified Anemia Anemia type: unspecified type Qualified Codes: D64.9 - Anemia, unspecified BERNICE LEMA MD Apr 19, 2019 14:57
[2019-04-19] MEDS ORDERED: DEXTROSE 50% 25 GM / 50ML DISP.SYRIN. IV PRN ×2 (18:15)
[2019-04-19] MEDS: INSULIN LISPRO 300 UNITS/3 ML VIAL. SQ SCH ×2 (18:30→21:32)
[2019-04-19] MEDS: IV NORMAL SALINE 1000ML BAG 1,000 ML IV SCH (18:42)
[2019-04-19] MEDS ORDERED: ACETAMINOPHEN 325 MG TABLET. PO PRN (18:45)
[2019-04-19 19:00] VITALS: BP 130/48
--- NOTE | 2019-04-19 19:14 | HP ---
ADMIT DATE: 04/19/2019 CHIEF COMPLAINT: Mental status change. HISTORY OF PRESENT ILLNESS: The patient is a pleasant 89-year-old female who lives at home with her daughter. She developed mental status change. They brought her in for evaluation. She seemed to have acute renal failure with a creatinine of 4.4. She also has a BUN of 51. Glucose is also elevated at 406. She is also anemic with a hemoglobin of 11.5. I discussed the case with ER physician. We are going to admit the patient, give her some IV fluids. Consult Nephrology and I am going to order UA, but start empiric IV antibiotics. PAST MEDICAL HISTORY: Diabetes, hypertension, breast cancer, left big toe surgery. ALLERGIES: CODEINE. FAMILY HISTORY: Coronary artery disease. SOCIAL HISTORY: She does not drink, smoke or take drugs. She lives at home with her daughter. MEDICATIONS: Reviewed, please refer to the MRAD. REVIEW OF SYSTEMS: GENERAL: No history of weight change, weakness or fevers. SKIN: No bruising, hair changes or rashes. EYES: No blurred, double or loss of vision. NOSE AND THROAT: No history of nosebleeds, hoarseness or sore throat. HEART: No history of palpitations, chest pain or shortness of breath on exertion. LUNGS: Denies cough, hemoptysis, wheezing or shortness of breath. GASTROINTESTINAL: Denies changes in appetite, nausea, vomiting, diarrhea or constipation. GENITOURINARY: No history of frequency, urgency, hesitancy or nocturia. NEUROLOGIC: Denies history of numbness, tingling, tremor or weakness. PSYCHIATRIC: No history of panic, anxiety or depression. ENDOCRINE: No history of heat or cold intolerance, polyuria or polydipsia. EXTREMITIES: Denies muscle weakness, joint pain, pain on walking or stiffness. PHYSICAL EXAMINATION: VITALS: Within normal limits and are stable. GENERAL: No apparent distress. Alert and oriented. HEENT: Head is normocephalic, atraumatic, pupils were equally round and reactive to light and accommodation. NECK: Supple, no JVD, no thyromegaly was noted. LUNGS: Clear to auscultation in all lung valentino without rhonchi or wheezing. HEART: RRR, S1, S2 present. Peripheral pulses intact, no obvious murmurs were noted. ABDOMEN: Soft, nontender. Positive bowel sounds no organomegaly, normal bowel sounds. EXTREMITIES: Without any cyanosis, clubbing, or edema. Pedal pulses intact, Homans sign is negative. NEUROLOGIC: Normal speech, normal tone. A & O x3, moves all extremities, no obvious focal deficits. PSYCHIATRIC: Normal affect, normal mood. Stable. SKIN: No ulcerations or rashes, good skin turgor, no jaundice. VASCULAR: Good capillary refill, neurovascular bundle appears to be intact. LABORATORY DATA: Electrolytes: Sodium 126, potassium 4.7, chloride 89, bicarbonate 25, BUN 51, creatinine 4.4, glucose 604. ASSESSMENT AND PLAN: Acute on chronic renal failure, hyperglycemia, anemia, mental status change with metabolic encephalopathy, suspect she has a UTI as well. We are going to start IV fluids. Consult Nephrology. PT, OT, home meds, DVT prophylaxis. Full code. I resume her home meds and order a UA as well. PROGNOSIS: Long-term guarded. KATINA JACINTO DO DR: LUIS ALBERTO/giuseppe JOB#: [id number] / [id number]
[2019-04-19] MEDS ORDERED: INSULIN GLARGINE SYRINGE. SQ SCH (21:00)
[2019-04-19] MEDS: cefTRIAXone IV Push 1 GM VIAL. IVP SCH (21:24)
[2019-04-19 23:00] VITALS: BP 137/51
[2019-04-20 03:00] VITALS: BP 144/63
[2019-04-20 05:28] LABS: BASO % 1 % (0-3); EOS # 0.3 x10^3/uL (0.0-0.7); EOS % 5 % (0-3); HEMATOCRIT 32.8 % (36.0-47.0); HEMOGLOBIN 11.1 g/dL (12.0-15.5); LYMPH # 1.4 x10^3/uL (1.0-4.8); LYMPH % 19 % (24-48); MEAN CORPUSCULAR HEMOGLOBIN 28 pg (25-35); MEAN CORPUSCULAR HGB CONC 34 g/dL (31-37); MEAN CORPUSCULAR VOLUME 84 fL (79-100); MONO # 0.7 x10^3/uL (0.0-1.1); MONO % 9 % (0-9); NEUT # 4.8 x10^3/uL (1.8-7.7); NEUT % 67 % (31-73); PLATELET COUNT 155 x10^3/uL (140-400); RED BLOOD COUNT 3.91 x10^6/uL (3.50-5.40); RED CELL DISTRIBUTION WIDTH 14.3 % (11.5-14.5); WHITE BLOOD COUNT 7.3 x10^3/uL (4.0-11.0)
[2019-04-20 06:04] LABS: CREATININE 2.9 mg/dL (0.6-1.0); GFR 18.6; POTASSIUM 3.8 mmol/L (3.5-5.1)
[2019-04-20 07:13] LABS: BILIRUBIN,URINE NEGATIVE (NEG); CLARITY,URINE CLEAR; COLOR,URINE YELLOW; NITRITE,URINE NEGATIVE (NEG); PROTEIN,URINE NEGATIVE (NEG-TRACE); UROBILINOGEN,URINE 0.2 mg/dL (0.2 mg/dL)
[2019-04-20 07:40] VITALS: BP 149/73
[2019-04-20 07:40] LABS: BACTERIA,URINE FEW /HPF (0-FEW); WBC,URINE >40 /HPF (0-4)
[2019-04-20] MEDS ORDERED: INSULIN LISPRO 300 UNITS/3 ML VIAL. SQ SCH ×2 (08:00→17:00)
--- NOTE | 2019-04-20 08:46 | PDOC ---
PROGRESS NOTES Chief Complaint Chief Complaint A/P: Acute metabolic encephalopathy Acute kidney injury - likely vasomotor nephropathy with ingestion of diuretics while taking po poorly Hyperglycemia - will adjust insulin Anemia Hyponatremia - likely 2/2 diuretic use, poor po intake UTI - grossly abnormal UA, awaiting culture. Will cont empiric rocephin History of Present Illness History of Present Illness Ms Gama is a 89-year-old F w/ PMHx diabetes, hypertension, breast cancer who comes from home per her daughter with mental status change. Notably creatinine of 4.4 and a BUN of 51, anemic with a hemoglobin of 11.5, sodium 126, and glucose of 604. Feeling a bit better today, still a bit confused. No pain complaints. Labs improving. Denies SOB and CP. Unsteady Vitals Vitals Vital Signs Date Time Temp Pulse Resp B/P (MAP) Pulse Ox O2 Delivery O2 Flow Rate FiO2 04/20/19 03:00 97.9 60 18 144/63 (90) 97 Room Air 97.9 Physical Exam General: Alert, Cooperative Heart: Regular rate, Normal S1, Normal S2 Lungs: Clear Abdomen: Normal bowel sounds, Soft Extremities: No clubbing, No cyanosis Skin: No rashes, No breakdown Labs LABS Laboratory Tests Test 04/19/19 13:51 04/19/19 14:01 04/19/19 16:20 04/19/19 20:55 Glucose (Fingerstick) 585 mg/dL (70-99) 279 mg/dL (70-99) 374 mg/dL (70-99) White Blood Count 9.2 x10^3/uL (4.0-11.0) Red Blood Count 4.11 x10^6/uL (3.50-5.40) Hemoglobin 11.5 g/dL (12.0-15.5) Hematocrit 35.2 % (36.0-47.0) Mean Corpuscular Volume 86 fL (79-100) Mean Corpuscular Hemoglobin 28 pg (25-35) Mean Corpuscular Hemoglobin Concent 33 g/dL (31-37) Red Cell Distribution Width 14.8 % (11.5-14.5) Platelet Count 168 x10^3/uL (140-400) Neutrophils (%) (Auto) 80 % (31-73) Lymphocytes (%) (Auto) 9 % (24-48) Monocytes (%) (Auto) 9 % (0-9) Eosinophils (%) (Auto) 1 % (0-3) Basophils (%) (Auto) 1 % (0-3) Neutrophils # (Auto) 7.3 x10^3/uL (1.8-7.7) Lymphocytes # (Auto) 0.9 x10^3/uL (1.0-4.8) Monocytes # (Auto) 0.8 x10^3/uL (0.0-1.1) Eosinophils # (Auto) 0.1 x10^3/uL (0.0-0.7) Basophils # (Auto) 0.1 x10^3/uL (0.0-0.2) Sodium Level 126 mmol/L (136-145) Potassium Level 4.7 mmol/L (3.5-5.1) Chloride Level 89 mmol/L (98-107) Carbon Dioxide Level 25 mmol/L (21-32) Anion Gap 12 (6-14) Blood Urea Nitrogen 51 mg/dL (7-20) Creatinine 4.4 mg/dL (0.6-1.0) Estimated GFR (Cockcroft-Gault) 11.5 BUN/Creatinine Ratio 12 (6-20) Glucose Level 604 mg/dL (70-99) Calcium Level 9.0 mg/dL (8.5-10.1) Magnesium Level 2.4 mg/dL (1.8-2.4) Total Bilirubin 0.5 mg/dL (0.2-1.0) Aspartate Amino Transf (AST/SGOT) 20 U/L (15-37) Alanine Aminotransferase (ALT/SGPT) 17 U/L (14-59) Alkaline Phosphatase 110 U/L (46-116) Total Protein 7.9 g/dL (6.4-8.2) Albumin 3.7 g/dL (3.4-5.0) Albumin/Globulin Ratio 0.9 (1.0-1.7) Test 04/20/19 05:00 04/20/19 06:30 White Blood Count 7.3 x10^3/uL (4.0-11.0) Red Blood Count 3.91 x10^6/uL (3.50-5.40) Hemoglobin 11.1 g/dL (12.0-15.5) Hematocrit 32.8 % (36.0-47.0) Mean Corpuscular Volume 84 fL (79-100) Mean Corpuscular Hemoglobin 28 pg (25-35) Mean Corpuscular Hemoglobin Concent 34 g/dL (31-37) Red Cell Distribution Width 14.3 % (11.5-14.5) Platelet Count 155 x10^3/uL (140-400) Neutrophils (%) (Auto) 67 % (31-73) Lymphocytes (%) (Auto) 19 % (24-48) Monocytes (%) (Auto) 9 % (0-9) Eosinophils (%) (Auto) 5 % (0-3) Basophils (%) (Auto) 1 % (0-3) Neutrophils # (Auto) 4.8 x10^3/uL (1.8-7.7) Lymphocytes # (Auto) 1.4 x10^3/uL (1.0-4.8) Monocytes # (Auto) 0.7 x10^3/uL (0.0-1.1) Eosinophils # (Auto) 0.3 x10^3/uL (0.0-0.7) Basophils # (Auto) 0.0 x10^3/uL (0.0-0.2) Sodium Level 133 mmol/L (136-145) Potassium Level 3.8 mmol/L (3.5-5.1) Chloride Level 99 mmol/L (98-107) Carbon Dioxide Level 26 mmol/L (21-32) Anion Gap 8 (6-14) Blood Urea Nitrogen 45 mg/dL (7-20) Creatinine 2.9 mg/dL (0.6-1.0) Estimated GFR (Cockcroft-Gault) 18.6 Glucose Level 214 mg/dL (70-99) Calcium Level 9.0 mg/dL (8.5-10.1) Urine Collection Type Unknown Urine Color Yellow Urine Clarity Clear Urine pH 5.0 Urine Specific [place] 1.015 Urine Protein Negative mg/dL (NEG-TRACE) Urine Glucose (UA) >=1000 mg/dL (NEG) Urine Ketones (Stick) Negative mg/dL (NEG) Urine Blood Moderate (NEG) Urine Nitrite Negative (NEG) Urine Bilirubin Negative (NEG) Urine Urobilinogen Dipstick 0.2 mg/dL (0.2 mg/dL) Urine Leukocyte Esterase Moderate (NEG) Urine RBC 1-2 /HPF (0-2) Urine WBC >40 /HPF (0-4) Urine Bacteria Few /HPF (0-FEW) Assessment and Plan Assessmemt and Plan Problems Medical Problems: (1) Acute on chronic kidney failure Status: Acute (2) Anemia Status: Acute (3) Hyperglycemia Status: Acute Comment Review of Relevant I have reviewed the following items meg (where applicable) has been applied. Labs Laboratory Tests Test 04/19/19 13:51 04/19/19 14:01 04/19/19 16:20 04/19/19 20:55 Glucose (Fingerstick) 585 mg/dL (70-99) 279 mg/dL (70-99) 374 mg/dL (70-99) White Blood Count 9.2 x10^3/uL (4.0-11.0) Red Blood Count 4.11 x10^6/uL (3.50-5.40) Hemoglobin 11.5 g/dL (12.0-15.5) Hematocrit 35.2 % (36.0-47.0) Mean Corpuscular Volume 86 fL (79-100) Mean Corpuscular Hemoglobin 28 pg (25-35) Mean Corpuscular Hemoglobin Concent 33 g/dL (31-37) Red Cell Distribution Width 14.8 % (11.5-14.5) Platelet Count 168 x10^3/uL (140-400) Neutrophils (%) (Auto) 80 % (31-73) Lymphocytes (%) (Auto) 9 % (24-48) Monocytes (%) (Auto) 9 % (0-9) Eosinophils (%) (Auto) 1 % (0-3) Basophils (%) (Auto) 1 % (0-3) Neutrophils # (Auto) 7.3 x10^3/uL (1.8-7.7) Lymphocytes # (Auto) 0.9 x10^3/uL (1.0-4.8) Monocytes # (Auto) 0.8 x10^3/uL (0.0-1.1) Eosinophils # (Auto) 0.1 x10^3/uL (0.0-0.7) Basophils # (Auto) 0.1 x10^3/uL (0.0-0.2) Sodium Level 126 mmol/L (136-145) Potassium Level 4.7 mmol/L (3.5-5.1) Chloride Level 89 mmol/L (98-107) Carbon Dioxide Level 25 mmol/L (21-32) Anion Gap 12 (6-14) Blood Urea Nitrogen 51 mg/dL (7-20) Creatinine 4.4 mg/dL (0.6-1.0) Estimated GFR (Cockcroft-Gault) 11.5 BUN/Creatinine Ratio 12 (6-20) Glucose Level 604 mg/dL (70-99) Calcium Level 9.0 mg/dL (8.5-10.1) Magnesium Level 2.4 mg/dL (1.8-2.4) Total Bilirubin 0.5 mg/dL (0.2-1.0) Aspartate Amino Transf (AST/SGOT) 20 U/L (15-37) Alanine Aminotransferase (ALT/SGPT) 17 U/L (14-59) Alkaline Phosphatase 110 U/L (46-116) Total Protein 7.9 g/dL (6.4-8.2) Albumin 3.7 g/dL (3.4-5.0) Albumin/Globulin Ratio 0.9 (1.0-1.7) Test 04/20/19 05:00 04/20/19 06:30 White Blood Count 7.3 x10^3/uL (4.0-11.0) Red Blood Count 3.91 x10^6/uL (3.50-5.40) Hemoglobin 11.1 g/dL (12.0-15.5) Hematocrit 32.8 % (36.0-47.0) Mean Corpuscular Volume 84 fL (79-100) Mean Corpuscular Hemoglobin 28 pg (25-35) Mean Corpuscular Hemoglobin Concent 34 g/dL (31-37) Red Cell Distribution Width 14.3 % (11.5-14.5) Platelet Count 155 x10^3/uL (140-400) Neutrophils (%) (Auto) 67 % (31-73) Lymphocytes (%) (Auto) 19 % (24-48) Monocytes (%) (Auto) 9 % (0-9) Eosinophils (%) (Auto) 5 % (0-3) Basophils (%) (Auto) 1 % (0-3) Neutrophils # (Auto) 4.8 x10^3/uL (1.8-7.7) Lymphocytes # (Auto) 1.4 x10^3/uL (1.0-4.8) Monocytes # (Auto) 0.7 x10^3/uL (0.0-1.1) Eosinophils # (Auto) 0.3 x10^3/uL (0.0-0.7) Basophils # (Auto) 0.0 x10^3/uL (0.0-0.2) Sodium Level 133 mmol/L (136-145) Potassium Level 3.8 mmol/L (3.5-5.1) Chloride Level 99 mmol/L (98-107) Carbon Dioxide Level 26 mmol/L (21-32) Anion Gap 8 (6-14) Blood Urea Nitrogen 45 mg/dL (7-20) Creatinine 2.9 mg/dL (0.6-1.0) Estimated GFR (Cockcroft-Gault) 18.6 Glucose Level 214 mg/dL (70-99) Calcium Level 9.0 mg/dL (8.5-10.1) Urine Collection Type Unknown Urine Color Yellow Urine Clarity Clear Urine pH 5.0 Urine Specific [place] 1.015 Urine Protein Negative mg/dL (NEG-TRACE) Urine Glucose (UA) >=1000 mg/dL (NEG) Urine Ketones (Stick) Negative mg/dL (NEG) Urine Blood Moderate (NEG) Urine Nitrite Negative (NEG) Urine Bilirubin Negative (NEG) Urine Urobilinogen Dipstick 0.2 mg/dL (0.2 mg/dL) Urine Leukocyte Esterase Moderate (NEG) Urine RBC 1-2 /HPF (0-2) Urine WBC >40 /HPF (0-4) Urine Bacteria Few /HPF (0-FEW) Laboratory Tests Test 04/19/19 13:51 04/19/19 14:01 04/19/19 16:20 04/19/19 20:55 Glucose (Fingerstick) 585 mg/dL (70-99) 279 mg/dL (70-99) 374 mg/dL (70-99) White Blood Count 9.2 x10^3/uL (4.0-11.0) Red Blood Count 4.11 x10^6/uL (3.50-5.40) Hemoglobin 11.5 g/dL (12.0-15.5) Hematocrit 35.2 % (36.0-47.0) Mean Corpuscular Volume 86 fL (79-100) Mean Corpuscular Hemoglobin 28 pg (25-35) Mean Corpuscular Hemoglobin Concent 33 g/dL (31-37) Red Cell Distribution Width 14.8 % (11.5-14.5) Platelet Count 168 x10^3/uL (140-400) Neutrophils (%) (Auto) 80 % (31-73) Lymphocytes (%) (Auto) 9 % (24-48) Monocytes (%) (Auto) 9 % (0-9) Eosinophils (%) (Auto) 1 % (0-3) Basophils (%) (Auto) 1 % (0-3) Neutrophils # (Auto) 7.3 x10^3/uL (1.8-7.7) Lymphocytes # (Auto) 0.9 x10^3/uL (1.0-4.8) Monocytes # (Auto) 0.8 x10^3/uL (0.0-1.1) Eosinophils # (Auto) 0.1 x10^3/uL (0.0-0.7) Basophils # (Auto) 0.1 x10^3/uL (0.0-0.2) Sodium Level 126 mmol/L (136-145) Potassium Level 4.7 mmol/L (3.5-5.1) Chloride Level 89 mmol/L (98-107) Carbon Dioxide Level 25 mmol/L (21-32) Anion Gap 12 (6-14) Blood Urea Nitrogen 51 mg/dL (7-20) Creatinine 4.4 mg/dL (0.6-1.0) Estimated GFR (Cockcroft-Gault) 11.5 BUN/Creatinine Ratio 12 (6-20) Glucose Level 604 mg/dL (70-99) Calcium Level 9.0 mg/dL (8.5-10.1) Magnesium Level 2.4 mg/dL (1.8-2.4) Total Bilirubin 0.5 mg/dL (0.2-1.0) Aspartate Amino Transf (AST/SGOT) 20 U/L (15-37) Alanine Aminotransferase (ALT/SGPT) 17 U/L (14-59) Alkaline Phosphatase 110 U/L (46-116) Total Protein 7.9 g/dL (6.4-8.2) Albumin 3.7 g/dL (3.4-5.0) Albumin/Globulin Ratio 0.9 (1.0-1.7) Test 04/20/19 05:00 04/20/19 06:30 White Blood Count 7.3 x10^3/uL (4.0-11.0) Red Blood Count 3.91 x10^6/uL (3.50-5.40) Hemoglobin 11.1 g/dL (12.0-15.5) Hematocrit 32.8 % (36.0-47.0) Mean Corpuscular Volume 84 fL (79-100) Mean Corpuscular Hemoglobin 28 pg (25-35) Mean Corpuscular Hemoglobin Concent 34 g/dL (31-37) Red Cell Distribution Width 14.3 % (11.5-14.5) Platelet Count 155 x10^3/uL (140-400) Neutrophils (%) (Auto) 67 % (31-73) Lymphocytes (%) (Auto) 19 % (24-48) Monocytes (%) (Auto) 9 % (0-9) Eosinophils (%) (Auto) 5 % (0-3) Basophils (%) (Auto) 1 % (0-3) Neutrophils # (Auto) 4.8 x10^3/uL (1.8-7.7) Lymphocytes # (Auto) 1.4 x10^3/uL (1.0-4.8) Monocytes # (Auto) 0.7 x10^3/uL (0.0-1.1) Eosinophils # (Auto) 0.3 x10^3/uL (0.0-0.7) Basophils # (Auto) 0.0 x10^3/uL (0.0-0.2) Sodium Level 133 mmol/L (136-145) Potassium Level 3.8 mmol/L (3.5-5.1) Chloride Level 99 mmol/L (98-107) Carbon Dioxide Level 26 mmol/L (21-32) Anion Gap 8 (6-14) Blood Urea Nitrogen 45 mg/dL (7-20) Creatinine 2.9 mg/dL (0.6-1.0) Estimated GFR (Cockcroft-Gault) 18.6 Glucose Level 214 mg/dL (70-99) Calcium Level 9.0 mg/dL (8.5-10.1) Urine Collection Type Unknown Urine Color Yellow Urine Clarity Clear Urine pH 5.0 Urine Specific [place] 1.015 Urine Protein Negative mg/dL (NEG-TRACE) Urine Glucose (UA) >=1000 mg/dL (NEG) Urine Ketones (Stick) Negative mg/dL (NEG) Urine Blood Moderate (NEG) Urine Nitrite Negative (NEG) Urine Bilirubin Negative (NEG) Urine Urobilinogen Dipstick 0.2 mg/dL (0.2 mg/dL) Urine Leukocyte Esterase Moderate (NEG) Urine RBC 1-2 /HPF (0-2) Urine WBC >40 /HPF (0-4) Urine Bacteria Few /HPF (0-FEW) Medications Current Medications Sodium Chloride 500 ml @ 500 mls/hr 1X ONCE IV Last administered on 04/19/19at 14:00; Start 04/19/19 at 14:00; Stop 04/19/19 at 14:59; Status DC Insulin Human Regular (HumuLIN R VIAL) 10 unit 1X ONCE IV Last administered on 04/19/19at 15:34; Start 04/19/19 at 14:15; Stop 04/19/19 at 14:16; Status DC Sodium Chloride 1,000 ml @ 75 mls/hr [id number] IV Last administered on 04/19/19at 18:42; Start 04/19/19 at 19:00 Dextrose (Dextrose 50%-Water Syringe) 12.5 gm PRN Q15MIN PRN IV SEE COMMENTS; Start 04/19/19 at 18:15; Stop 04/20/19 at 07:17; Status DC Ceftriaxone Sodium (Rocephin) 1 gm Q24H IVP Last administered on 04/19/19at 21:24; Start 04/19/19 at 18:00 Insulin Human Lispro (HumaLOG) 0-5 UNITS TIDWMEALS SQ ; Start 04/20/19 at 08:00; Stop 04/19/19 at 18:20; Status DC Dextrose (Dextrose 50%-Water Syringe) 12.5 gm PRN Q15MIN PRN IV SEE COMMENTS; Start 04/19/19 at 18:15 Amlodipine Besylate (Norvasc) 10 mg DAILY PO ; Start 04/20/19 at 09:00 Glipizide (Glucotrol) 5 mg DAILY PO ; Start 04/20/19 at 09:00 Non-Formulary Medication (Exemestane ) 25 mg DAILY PO ; Start 04/20/19 at 09:00; Status UNV Indapamide (Lozol) 1.25 mg DAILY PO ; Start 04/20/19 at 09:00 Insulin Human Lispro (HumaLOG) 5 units TIDWMEALS SQ ; Start 04/20/19 at 08:00 Insulin Glargine (Lantus Syringe) 15 unit QHS SQ Last administered on 04/19/19at 21:00; Start 04/19/19 at 21:00 Losartan Potassium (Cozaar) 100 mg DAILY PO ; Start 04/20/19 at 09:00 Pantoprazole Sodium (Protonix) 40 mg DAILYAC PO ; Start 04/20/19 at 07:30 Insulin Human Lispro (HumaLOG) 0-5 UNITS TIDWMEALHC SQ Last administered on 04/19/19at 21:32; Start 04/19/19 at 18:30 Acetaminophen (Tylenol) 650 mg PRN Q6HRS PRN PO HEADACHE/FEVER; Start 04/19/19 at 18:45 Active Scripts Active Reported Exemestane 25 Mg Tablet 25 Mg PO DAILY Glipizide 5 Mg Tablet 1 Tab PO DAILY Novolog (Insulin Aspart) 100 Unit/1 Ml Cartridge 5 Unit SQ TIDAC Omeprazole 40 Mg Capsule.dr 40 Mg PO DAILY Avapro (Irbesartan) 300 Mg Tablet 300 Mg PO DAILY Lantus Solostar (Insulin Glargine,Hum.rec.anlog) 100 Unit/1 Ml Insuln.pen 15 Unit SQ HS Indapamide 1.25 Mg Tablet 1.25 Mg PO DAILY Norvasc (Amlodipine Besylate) 10 Mg Tablet 10 Mg PO DAILY Vitals/I & O Vital Sign - Last 24 Hours 04/19/19 04/19/19 04/19/19 04/19/19 13:50 14:17 14:47 15:17 Temp 97.9 97.9 Pulse 87 Resp 18 18 18 18 B/P (MAP) 176/87 (116) 167/77 (107) 165/77 (106) 158/72 (100) Pulse Ox 100 96 97 98 O2 Delivery Room Air Room Air Room Air Room Air 10/17/19 10/17/19 10/17/19 10/17/19 17:10 19:00 20:00 23:00 Temp 98.3 98.1 98.3 98.1 Pulse 73 69 Resp 18 18 B/P (MAP) 130/48 (75) 137/51 (79) Pulse Ox 94 97 O2 Delivery Room Air Room Air Room Air Room Air 04/20/19 03:00 Temp 97.9 97.9 Pulse 60 Resp 18 B/P (MAP) 144/63 (90) Pulse Ox 97 O2 Delivery Room Air Intake and Output 04/19/19 04/19/19 04/20/19 14:59 22:59 06:59 Intake Total 200 ml 400 ml Output Total 300 ml Balance 200 ml 100 ml RALPH FLEMING MD Apr 20, 2019 08:46
[2019-04-20] MEDS ORDERED: LOSARTAN POTASSIUM 50 MG TABLET. PO SCH (09:00)
[2019-04-20] MEDS ORDERED: INDAPAMIDE 2.5 MG TABLET PO SCH (09:00)
[2019-04-20] MEDS: NON FORMULARY ITEM (Exemestane 25 MG) PO SCH (09:00)
--- NOTE | 2019-04-20 10:03 | PDOC2 ---
CONSULT Date of Consult Date of Consult DATE: 04/20/19 TIME: 09:52 Reason for Consult Reason for Consult: "CRI Vs ARF" Identification/Chief Complaint Chief Complaint No complaints Source Source: Chart review History of Present Illness Reason for Visit: Patient is a 89 year old female who presents with complain of high blood suga r. Her blood sugar was more than 700 per patient . Patient denies headache, dizziness, weakness, nausea and vomiting, abdominal pain, focal neuro deficit, urinary symptoms She lives with her family member and her family stated she usually forgets to take her insulin. Denies any complaints . No urinary complaints. Denies taking NSAID's Social History ALCOHOL: none Lives: with Family Current Problem List Problem List Problems Medical Problems: (1) Acute on chronic kidney failure Status: Acute (2) Anemia Status: Acute (3) Hyperglycemia Status: Acute Current Medications Current Medications Current Medications Sodium Chloride 500 ml @ 500 mls/hr 1X ONCE IV Last administered on 04/19/19at 14:00; Start 04/19/19 at 14:00; Stop 04/19/19 at 14:59; Status DC Insulin Human Regular (HumuLIN R VIAL) 10 unit 1X ONCE IV Last administered on 04/19/19at 15:34; Start 04/19/19 at 14:15; Stop 04/19/19 at 14:16; Status DC Sodium Chloride 1,000 ml @ 75 mls/hr [id number] IV Last administered on 04/19/19at 18:42; Start 04/19/19 at 19:00 Dextrose (Dextrose 50%-Water Syringe) 12.5 gm PRN Q15MIN PRN IV SEE COMMENTS; Start 04/19/19 at 18:15; Stop 04/20/19 at 07:17; Status DC Ceftriaxone Sodium (Rocephin) 1 gm Q24H IVP Last administered on 04/19/19at 21:24; Start 04/19/19 at 18:00 Insulin Human Lispro (HumaLOG) 0-5 UNITS TIDWMEALS SQ ; Start 04/20/19 at 08:00; Stop 04/19/19 at 18:20; Status DC Dextrose (Dextrose 50%-Water Syringe) 12.5 gm PRN Q15MIN PRN IV SEE COMMENTS; Start 04/19/19 at 18:15 Amlodipine Besylate (Norvasc) 10 mg DAILY PO ; Start 04/20/19 at 09:00 Glipizide (Glucotrol) 5 mg DAILY PO ; Start 04/20/19 at 09:00 Non-Formulary Medication (Exemestane ) 25 mg DAILY PO ; Start 04/20/19 at 09:00; Status UNV Indapamide (Lozol) 1.25 mg DAILY PO ; Start 04/20/19 at 09:00; Stop 04/20/19 at 08:30; Status DC Insulin Human Lispro (HumaLOG) 5 units TIDWMEALS SQ ; Start 04/20/19 at 08:00 Insulin Glargine (Lantus Syringe) 15 unit QHS SQ Last administered on 04/19/19a t 21:00; Start 04/19/19 at 21:00 Losartan Potassium (Cozaar) 100 mg DAILY PO ; Start 04/20/19 at 09:00; Stop 04/20/19 at 08:47; Status DC Pantoprazole Sodium (Protonix) 40 mg DAILYAC PO ; Start 04/20/19 at 07:30 Insulin Human Lispro (HumaLOG) 0-5 UNITS TIDWMEALHC SQ Last administered on 04/19/19at 21:32; Start 04/19/19 at 18:30 Acetaminophen (Tylenol) 650 mg PRN Q6HRS PRN PO HEADACHE/FEVER; Start 04/19/19 at 18:45 Active Scripts Active Reported Exemestane 25 Mg Tablet 25 Mg PO DAILY Glipizide 5 Mg Tablet 1 Tab PO DAILY Novolog (Insulin Aspart) 100 Unit/1 Ml Cartridge 5 Unit SQ TIDAC Omeprazole 40 Mg Capsule.dr 40 Mg PO DAILY Avapro (Irbesartan) 300 Mg Tablet 300 Mg PO DAILY Lantus Solostar (Insulin Glargine,Hum.rec.anlog) 100 Unit/1 Ml Insuln.pen 15 Unit SQ HS Indapamide 1.25 Mg Tablet 1.25 Mg PO DAILY Norvasc (Amlodipine Besylate) 10 Mg Tablet 10 Mg PO DAILY Allergies Allergies: Coded Allergies: codeine (Verified Allergy, Intermediate, 11/25/18) ROS Review of System Per HPI Physical Exam Physical Exam GENERAL: No apparent distress, in the chair HEENT: Head is normocephalic, atraumatic, OM moist NECK: Supple, LUNGS: Clear to auscultation , Non labored HEART: RRR, S1, S2 present. ABDOMEN: Soft, nontender. EXTREMITIES: Without any cyanosis, clubbing, or edema. NEUROLOGIC: grossly normal PSYCHIATRIC: Normal affect, normal mood. Stable. SKIN: No rashes, No Liu Vital Signs Vital Signs Date Time Temp Pulse Resp B/P (MAP) Pulse Ox O2 Delivery O2 Flow Rate FiO2 04/20/19 07:40 98.0 72 20 149/73 (98) 97 Room Air 98.0 Assessment & Plan FREDIS- pre-renal 2/2 Hyperglycemia Renal function Improving with IVF K and acid base stable, Hold Diuretic and ARB Renal US november 2018- Unremarkable Supportive care, I/O, avoid nephrotoxins, monitor CKD stage 3 -Possible underlying chronic kidney disease cannot be ruled out severe diabetic hypertensive nephrosclerosis Previous Hospitalization Cr around 1.4 , No prioe labs available Hyponatremia- Corrected for Glucose - close to normal UTI - Pt asymptomatic Per Primary Severe Hyperglycemia DM- On insulin, management per primary HTN- Stable, antihypertensives at home -Indapamide, Irbesartan , amlodipine Hold Diuretic and ARB Labs Labs Laboratory Tests Test 04/19/19 13:51 04/19/19 14:01 04/19/19 16:20 04/19/19 20:55 Glucose (Fingerstick) 585 mg/dL (70-99) 279 mg/dL (70-99) 374 mg/dL (70-99) White Blood Count 9.2 x10^3/uL (4.0-11.0) Red Blood Count 4.11 x10^6/uL (3.50-5.40) Hemoglobin 11.5 g/dL (12.0-15.5) Hematocrit 35.2 % (36.0-47.0) Mean Corpuscular Volume 86 fL (79-100) Mean Corpuscular Hemoglobin 28 pg (25-35) Mean Corpuscular Hemoglobin Concent 33 g/dL (31-37) Red Cell Distribution Width 14.8 % (11.5-14.5) Platelet Count 168 x10^3/uL (140-400) Neutrophils (%) (Auto) 80 % (31-73) Lymphocytes (%) (Auto) 9 % (24-48) Monocytes (%) (Auto) 9 % (0-9) Eosinophils (%) (Auto) 1 % (0-3) Basophils (%) (Auto) 1 % (0-3) Neutrophils # (Auto) 7.3 x10^3/uL (1.8-7.7) Lymphocytes # (Auto) 0.9 x10^3/uL (1.0-4.8) Monocytes # (Auto) 0.8 x10^3/uL (0.0-1.1) Eosinophils # (Auto) 0.1 x10^3/uL (0.0-0.7) Basophils # (Auto) 0.1 x10^3/uL (0.0-0.2) Sodium Level 126 mmol/L (136-145) Potassium Level 4.7 mmol/L (3.5-5.1) Chloride Level 89 mmol/L (98-107) Carbon Dioxide Level 25 mmol/L (21-32) Anion Gap 12 (6-14) Blood Urea Nitrogen 51 mg/dL (7-20) Creatinine 4.4 mg/dL (0.6-1.0) Estimated GFR (Cockcroft-Gault) 11.5 BUN/Creatinine Ratio 12 (6-20) Glucose Level 604 mg/dL (70-99) Calcium Level 9.0 mg/dL (8.5-10.1) Magnesium Level 2.4 mg/dL (1.8-2.4) Total Bilirubin 0.5 mg/dL (0.2-1.0) Aspartate Amino Transf (AST/SGOT) 20 U/L (15-37) Alanine Aminotransferase (ALT/SGPT) 17 U/L (14-59) Alkaline Phosphatase 110 U/L (46-116) Total Protein 7.9 g/dL (6.4-8.2) Albumin 3.7 g/dL (3.4-5.0) Albumin/Globulin Ratio 0.9 (1.0-1.7) Test 04/20/19 05:00 04/20/19 06:30 White Blood Count 7.3 x10^3/uL (4.0-11.0) Red Blood Count 3.91 x10^6/uL (3.50-5.40) Hemoglobin 11.1 g/dL (12.0-15.5) Hematocrit 32.8 % (36.0-47.0) Mean Corpuscular Volume 84 fL (79-100) Mean Corpuscular Hemoglobin 28 pg (25-35) Mean Corpuscular Hemoglobin Concent 34 g/dL (31-37) Red Cell Distribution Width 14.3 % (11.5-14.5) Platelet Count 155 x10^3/uL (140-400) Neutrophils (%) (Auto) 67 % (31-73) Lymphocytes (%) (Auto) 19 % (24-48) Monocytes (%) (Auto) 9 % (0-9) Eosinophils (%) (Auto) 5 % (0-3) Basophils (%) (Auto) 1 % (0-3) Neutrophils # (Auto) 4.8 x10^3/uL (1.8-7.7) Lymphocytes # (Auto) 1.4 x10^3/uL (1.0-4.8) Monocytes # (Auto) 0.7 x10^3/uL (0.0-1.1) Eosinophils # (Auto) 0.3 x10^3/uL (0.0-0.7) Basophils # (Auto) 0.0 x10^3/uL (0.0-0.2) Sodium Level 133 mmol/L (136-145) Potassium Level 3.8 mmol/L (3.5-5.1) Chloride Level 99 mmol/L (98-107) Carbon Dioxide Level 26 mmol/L (21-32) Anion Gap 8 (6-14) Blood Urea Nitrogen 45 mg/dL (7-20) Creatinine 2.9 mg/dL (0.6-1.0) Estimated GFR (Cockcroft-Gault) 18.6 Glucose Level 214 mg/dL (70-99) Calcium Level 9.0 mg/dL (8.5-10.1) Urine Collection Type Unknown Urine Color Yellow Urine Clarity Clear Urine pH 5.0 Urine Specific [place] 1.015 Urine Protein Negative mg/dL (NEG-TRACE) Urine Glucose (UA) >=1000 mg/dL (NEG) Urine Ketones (Stick) Negative mg/dL (NEG) Urine Blood Moderate (NEG) Urine Nitrite Negative (NEG) Urine Bilirubin Negative (NEG) Urine Urobilinogen Dipstick 0.2 mg/dL (0.2 mg/dL) Urine Leukocyte Esterase Moderate (NEG) Urine RBC 1-2 /HPF (0-2) Urine WBC >40 /HPF (0-4) Urine Bacteria Few /HPF (0-FEW) Laboratory Tests Test 04/19/19 13:51 04/19/19 14:01 04/19/19 16:20 04/19/19 20:55 Glucose (Fingerstick) 585 mg/dL (70-99) 279 mg/dL (70-99) 374 mg/dL (70-99) White Blood Count 9.2 x10^3/uL (4.0-11.0) Red Blood Count 4.11 x10^6/uL (3.50-5.40) Hemoglobin 11.5 g/dL (12.0-15.5) Hematocrit 35.2 % (36.0-47.0) Mean Corpuscular Volume 86 fL (79-100) Mean Corpuscular Hemoglobin 28 pg (25-35) Mean Corpuscular Hemoglobin Concent 33 g/dL (31-37) Red Cell Distribution Width 14.8 % (11.5-14.5) Platelet Count 168 x10^3/uL (140-400) Neutrophils (%) (Auto) 80 % (31-73) Lymphocytes (%) (Auto) 9 % (24-48) Monocytes (%) (Auto) 9 % (0-9) Eosinophils (%) (Auto) 1 % (0-3) Basophils (%) (Auto) 1 % (0-3) Neutrophils # (Auto) 7.3 x10^3/uL (1.8-7.7) Lymphocytes # (Auto) 0.9 x10^3/uL (1.0-4.8) Monocytes # (Auto) 0.8 x10^3/uL (0.0-1.1) Eosinophils # (Auto) 0.1 x10^3/uL (0.0-0.7) Basophils # (Auto) 0.1 x10^3/uL (0.0-0.2) Sodium Level 126 mmol/L (136-145) Potassium Level 4.7 mmol/L (3.5-5.1) Chloride Level 89 mmol/L (98-107) Carbon Dioxide Level 25 mmol/L (21-32) Anion Gap 12 (6-14) Blood Urea Nitrogen 51 mg/dL (7-20) Creatinine 4.4 mg/dL (0.6-1.0) Estimated GFR (Cockcroft-Gault) 11.5 BUN/Creatinine Ratio 12 (6-20) Glucose Level 604 mg/dL (70-99) Calcium Level 9.0 mg/dL (8.5-10.1) Magnesium Level 2.4 mg/dL (1.8-2.4) Total Bilirubin 0.5 mg/dL (0.2-1.0) Aspartate Amino Transf (AST/SGOT) 20 U/L (15-37) Alanine Aminotransferase (ALT/SGPT) 17 U/L (14-59) Alkaline Phosphatase 110 U/L (46-116) Total Protein 7.9 g/dL (6.4-8.2) Albumin 3.7 g/dL (3.4-5.0) Albumin/Globulin Ratio 0.9 (1.0-1.7) Test 04/20/19 05:00 04/20/19 06:30 White Blood Count 7.3 x10^3/uL (4.0-11.0) Red Blood Count 3.91 x10^6/uL (3.50-5.40) Hemoglobin 11.1 g/dL (12.0-15.5) Hematocrit 32.8 % (36.0-47.0) Mean Corpuscular Volume 84 fL (79-100) Mean Corpuscular Hemoglobin 28 pg (25-35) Mean Corpuscular Hemoglobin Concent 34 g/dL (31-37) Red Cell Distribution Width 14.3 % (11.5-14.5) Platelet Count 155 x10^3/uL (140-400) Neutrophils (%) (Auto) 67 % (31-73) Lymphocytes (%) (Auto) 19 % (24-48) Monocytes (%) (Auto) 9 % (0-9) Eosinophils (%) (Auto) 5 % (0-3) Basophils (%) (Auto) 1 % (0-3) Neutrophils # (Auto) 4.8 x10^3/uL (1.8-7.7) Lymphocytes # (Auto) 1.4 x10^3/uL (1.0-4.8) Monocytes # (Auto) 0.7 x10^3/uL (0.0-1.1) Eosinophils # (Auto) 0.3 x10^3/uL (0.0-0.7) Basophils # (Auto) 0.0 x10^3/uL (0.0-0.2) Sodium Level 133 mmol/L (136-145) Potassium Level 3.8 mmol/L (3.5-5.1) Chloride Level 99 mmol/L (98-107) Carbon Dioxide Level 26 mmol/L (21-32) Anion Gap 8 (6-14) Blood Urea Nitrogen 45 mg/dL (7-20) Creatinine 2.9 mg/dL (0.6-1.0) Estimated GFR (Cockcroft-Gault) 18.6 Glucose Level 214 mg/dL (70-99) Calcium Level 9.0 mg/dL (8.5-10.1) Urine Collection Type Unknown Urine Color Yellow Urine Clarity Clear Urine pH 5.0 Urine Specific [place] 1.015 Urine Protein Negative mg/dL (NEG-TRACE) Urine Glucose (UA) >=1000 mg/dL (NEG) Urine Ketones (Stick) Negative mg/dL (NEG) Urine Blood Moderate (NEG) Urine Nitrite Negative (NEG) Urine Bilirubin Negative (NEG) Urine Urobilinogen Dipstick 0.2 mg/dL (0.2 mg/dL) Urine Leukocyte Esterase Moderate (NEG) Urine RBC 1-2 /HPF (0-2) Urine WBC >40 /HPF (0-4) Urine Bacteria Few /HPF (0-FEW) Review All relevant outside records, renal labs, imaging studies, telemetry/EKG's were reviewed. Images Images Renal US november 2018 FINDINGS: The longitudinal and AP and transverse dimensions of the right kidney are 9.4 cm and 3.7 cm and 3.7 cm respectively. The longitudinal and AP and transverse dimensions of the left kidney are 9.2 cm and 4.1 cm and 3.6 cm respectively. No hydronephrosis or renal mass or perinephric fluid collection is seen on either side. Urinary bladder is distended. No intraluminal echodensities or masses of the urinary bladder are seen. IMPRESSION: No hydronephrosis. Urinary bladder distention. NOAH RESENDIZ MD Apr 20, 2019 10:03
[2019-04-20] MEDS: PANTOPRAZOLE 40 MG TABLET.DR. PO SCH (10:39)
[2019-04-20] MEDS: glipiZIDE 5 MG TABLET PO SCH (10:39)
[2019-04-20] MEDS: amLODIPine BESYLATE 10 MG TABLET PO SCH (10:40)
[2019-04-20] MEDS: INSULIN LISPRO 300 UNITS/3 ML VIAL. SQ SCH ×7 (10:43→21:00)
[2019-04-20 11:00] VITALS: BP 136/63
[2019-04-20] MEDS: IV NORMAL SALINE 1000ML BAG 1,000 ML IV SCH (12:13)
[2019-04-20 15:00] VITALS: BP 139/67
[2019-04-20] MEDS: INSULIN GLARGINE SYRINGE. SQ SCH ×2 (17:45→21:00)
[2019-04-20 19:00] VITALS: BP 132/58
[2019-04-20] MEDS: cefTRIAXone IV Push 1 GM VIAL. IVP SCH (19:27)
[2019-04-20] MEDS: LACTOBACILLUS RHAMNOSUS GG 1 CAPSULE. PO SCH (21:00)
[2019-04-20] MEDS ORDERED: INSULIN GLARGINE SYRINGE. SQ SCH (21:00)
[2019-04-20 23:00] VITALS: BP 146/66
[2019-04-21] MEDS: IV NORMAL SALINE 1000ML BAG 1,000 ML IV SCH ×2 (02:14→11:00)
[2019-04-21 03:00] VITALS: BP 126/53
[2019-04-21 05:41] LABS: BASO % 1 % (0-3); EOS # 0.3 x10^3/uL (0.0-0.7); EOS % 5 % (0-3); HEMATOCRIT 33.4 % (36.0-47.0); HEMOGLOBIN 10.9 g/dL (12.0-15.5); LYMPH % 16 % (24-48); MEAN CORPUSCULAR HEMOGLOBIN 28 pg (25-35); MEAN CORPUSCULAR HGB CONC 33 g/dL (31-37); MEAN CORPUSCULAR VOLUME 86 fL (79-100); MONO # 0.7 x10^3/uL (0.0-1.1); MONO % 11 % (0-9); NEUT # 4.1 x10^3/uL (1.8-7.7); NEUT % 68 % (31-73); PLATELET COUNT 98 x10^3/uL (140-400); RED BLOOD COUNT 3.88 x10^6/uL (3.50-5.40); WHITE BLOOD COUNT 6.1 x10^3/uL (4.0-11.0)
[2019-04-21 05:47] LABS: CALCIUM 8.5 mg/dL (8.5-10.1); CREATININE 1.9 mg/dL (0.6-1.0); GFR 30.3
[2019-04-21 07:00] VITALS: BP 158/80
[2019-04-21] MEDS: LACTOBACILLUS RHAMNOSUS GG 1 CAPSULE. PO SCH ×2 (08:43→21:05)
[2019-04-21] MEDS: PANTOPRAZOLE 40 MG TABLET.DR. PO SCH (08:43)
[2019-04-21] MEDS: glipiZIDE 5 MG TABLET PO SCH (08:43)
[2019-04-21] MEDS: amLODIPine BESYLATE 10 MG TABLET PO SCH (08:44)
--- NOTE | 2019-04-21 08:47 | PDOC ---
PROGRESS NOTES Chief Complaint Chief Complaint A/P: Acute metabolic encephalopathy Acute kidney injury - likely vasomotor nephropathy with ingestion of diuretics while taking po poorly Hyperglycemia - will adjust insulin Anemia Hyponatremia - likely 2/2 diuretic use, poor po intake UTI - grossly abnormal UA, awaiting culture. Will cont empiric rocephin History of Present Illness History of Present Illness Ms Gama is a 89-year-old F w/ PMHx diabetes, hypertension, breast cancer who comes from home per her daughter with mental status change. Notably creatinine of 4.4 and a BUN of 51, anemic with a hemoglobin of 11.5, sodium 126, and glucose of 604. Nephrology consulted. Feeling a bit better today, still a bit confused. No pain complaints. Labs improving. Denies SOB and CP. Unsteady. Cr already down to 1.9 today. Glucose improved. Had a low sugar < 60 yesterday, insulin adjusted accordingly. Apparently did not receive her lantus last night, glucose this morning was 197. PT and OT recommend SNF on d/c and based on the fact that patient claims she has been having home health and her insulin prepared for her at home I would agree placement, at least temporarily is in her best interest for her health given if things had progressed she would have had progressive renal failure. Vitals Vitals Vital Signs Date Time Temp Pulse Resp B/P (MAP) Pulse Ox O2 Delivery O2 Flow Rate FiO2 04/21/19 07:00 98.1 75 16 158/80 (106) 96 Room Air 98.1 Physical Exam General: Alert, Cooperative Heart: Regular rate, Normal S1, Normal S2 Lungs: Clear Abdomen: Normal bowel sounds, Soft Extremities: No clubbing, No cyanosis Skin: No rashes, No breakdown Labs LABS Laboratory Tests Test 04/20/19 10:55 04/20/19 16:29 04/20/19 17:30 04/20/19 20:36 Glucose (Fingerstick) 305 mg/dL (70-99) 57 mg/dL (70-99) 73 mg/dL (70-99) 142 mg/dL (70-99) Test 04/21/19 04:45 04/21/19 07:48 White Blood Count 6.1 x10^3/uL (4.0-11.0) Red Blood Count 3.88 x10^6/uL (3.50-5.40) Hemoglobin 10.9 g/dL (12.0-15.5) Hematocrit 33.4 % (36.0-47.0) Mean Corpuscular Volume 86 fL (79-100) Mean Corpuscular Hemoglobin 28 pg (25-35) Mean Corpuscular Hemoglobin Concent 33 g/dL (31-37) Red Cell Distribution Width 15.0 % (11.5-14.5) Platelet Count 98 x10^3/uL (140-400) Neutrophils (%) (Auto) 68 % (31-73) Lymphocytes (%) (Auto) 16 % (24-48) Monocytes (%) (Auto) 11 % (0-9) Eosinophils (%) (Auto) 5 % (0-3) Basophils (%) (Auto) 1 % (0-3) Neutrophils # (Auto) 4.1 x10^3/uL (1.8-7.7) Lymphocytes # (Auto) 1.0 x10^3/uL (1.0-4.8) Monocytes # (Auto) 0.7 x10^3/uL (0.0-1.1) Eosinophils # (Auto) 0.3 x10^3/uL (0.0-0.7) Basophils # (Auto) 0.0 x10^3/uL (0.0-0.2) Sodium Level 140 mmol/L (136-145) Potassium Level 4.0 mmol/L (3.5-5.1) Chloride Level 105 mmol/L (98-107) Carbon Dioxide Level 22 mmol/L (21-32) Anion Gap 13 (6-14) Blood Urea Nitrogen 34 mg/dL (7-20) Creatinine 1.9 mg/dL (0.6-1.0) Estimated GFR (Cockcroft-Gault) 30.3 Glucose Level 241 mg/dL (70-99) Calcium Level 8.5 mg/dL (8.5-10.1) Glucose (Fingerstick) 197 mg/dL (70-99) Assessment and Plan Assessmemt and Plan Problems Medical Problems: (1) Acute on chronic kidney failure Status: Acute (2) Anemia Status: Acute (3) Hyperglycemia Status: Acute Comment Review of Relevant I have reviewed the following items meg (where applicable) has been applied. Labs Laboratory Tests Test 04/19/19 13:51 04/19/19 14:01 04/19/19 16:20 04/19/19 20:55 Glucose (Fingerstick) 585 mg/dL (70-99) 279 mg/dL (70-99) 374 mg/dL (70-99) White Blood Count 9.2 x10^3/uL (4.0-11.0) Red Blood Count 4.11 x10^6/uL (3.50-5.40) Hemoglobin 11.5 g/dL (12.0-15.5) Hematocrit 35.2 % (36.0-47.0) Mean Corpuscular Volume 86 fL (79-100) Mean Corpuscular Hemoglobin 28 pg (25-35) Mean Corpuscular Hemoglobin Concent 33 g/dL (31-37) Red Cell Distribution Width 14.8 % (11.5-14.5) Platelet Count 168 x10^3/uL (140-400) Neutrophils (%) (Auto) 80 % (31-73) Lymphocytes (%) (Auto) 9 % (24-48) Monocytes (%) (Auto) 9 % (0-9) Eosinophils (%) (Auto) 1 % (0-3) Basophils (%) (Auto) 1 % (0-3) Neutrophils # (Auto) 7.3 x10^3/uL (1.8-7.7) Lymphocytes # (Auto) 0.9 x10^3/uL (1.0-4.8) Monocytes # (Auto) 0.8 x10^3/uL (0.0-1.1) Eosinophils # (Auto) 0.1 x10^3/uL (0.0-0.7) Basophils # (Auto) 0.1 x10^3/uL (0.0-0.2) Sodium Level 126 mmol/L (136-145) Potassium Level 4.7 mmol/L (3.5-5.1) Chloride Level 89 mmol/L (98-107) Carbon Dioxide Level 25 mmol/L (21-32) Anion Gap 12 (6-14) Blood Urea Nitrogen 51 mg/dL (7-20) Creatinine 4.4 mg/dL (0.6-1.0) Estimated GFR (Cockcroft-Gault) 11.5 BUN/Creatinine Ratio 12 (6-20) Glucose Level 604 mg/dL (70-99) Calcium Level 9.0 mg/dL (8.5-10.1) Magnesium Level 2.4 mg/dL (1.8-2.4) Total Bilirubin 0.5 mg/dL (0.2-1.0) Aspartate Amino Transf (AST/SGOT) 20 U/L (15-37) Alanine Aminotransferase (ALT/SGPT) 17 U/L (14-59) Alkaline Phosphatase 110 U/L (46-116) Total Protein 7.9 g/dL (6.4-8.2) Albumin 3.7 g/dL (3.4-5.0) Albumin/Globulin Ratio 0.9 (1.0-1.7) Test 04/20/19 05:00 04/20/19 06:30 04/20/19 08:04 04/20/19 10:55 White Blood Count 7.3 x10^3/uL (4.0-11.0) Red Blood Count 3.91 x10^6/uL (3.50-5.40) Hemoglobin 11.1 g/dL (12.0-15.5) Hematocrit 32.8 % (36.0-47.0) Mean Corpuscular Volume 84 fL (79-100) Mean Corpuscular Hemoglobin 28 pg (25-35) Mean Corpuscular Hemoglobin Concent 34 g/dL (31-37) Red Cell Distribution Width 14.3 % (11.5-14.5) Platelet Count 155 x10^3/uL (140-400) Neutrophils (%) (Auto) 67 % (31-73) Lymphocytes (%) (Auto) 19 % (24-48) Monocytes (%) (Auto) 9 % (0-9) Eosinophils (%) (Auto) 5 % (0-3) Basophils (%) (Auto) 1 % (0-3) Neutrophils # (Auto) 4.8 x10^3/uL (1.8-7.7) Lymphocytes # (Auto) 1.4 x10^3/uL (1.0-4.8) Monocytes # (Auto) 0.7 x10^3/uL (0.0-1.1) Eosinophils # (Auto) 0.3 x10^3/uL (0.0-0.7) Basophils # (Auto) 0.0 x10^3/uL (0.0-0.2) Sodium Level 133 mmol/L (136-145) Potassium Level 3.8 mmol/L (3.5-5.1) Chloride Level 99 mmol/L (98-107) Carbon Dioxide Level 26 mmol/L (21-32) Anion Gap 8 (6-14) Blood Urea Nitrogen 45 mg/dL (7-20) Creatinine 2.9 mg/dL (0.6-1.0) Estimated GFR (Cockcroft-Gault) 18.6 Glucose Level 214 mg/dL (70-99) Calcium Level 9.0 mg/dL (8.5-10.1) Urine Collection Type Unknown Urine Color Yellow Urine Clarity Clear Urine pH 5.0 Urine Specific [place] 1.015 Urine Protein Negative mg/dL (NEG-TRACE) Urine Glucose (UA) >=1000 mg/dL (NEG) Urine Ketones (Stick) Negative mg/dL (NEG) Urine Blood Moderate (NEG) Urine Nitrite Negative (NEG) Urine Bilirubin Negative (NEG) Urine Urobilinogen Dipstick 0.2 mg/dL (0.2 mg/dL) Urine Leukocyte Esterase Moderate (NEG) Urine RBC 1-2 /HPF (0-2) Urine WBC >40 /HPF (0-4) Urine Bacteria Few /HPF (0-FEW) Glucose (Fingerstick) 159 mg/dL (70-99) 305 mg/dL (70-99) Test 04/20/19 16:29 04/20/19 17:30 04/20/19 20:36 04/21/19 04:45 Glucose (Fingerstick) 57 mg/dL (70-99) 73 mg/dL (70-99) 142 mg/dL (70-99) White Blood Count 6.1 x10^3/uL (4.0-11.0) Red Blood Count 3.88 x10^6/uL (3.50-5.40) Hemoglobin 10.9 g/dL (12.0-15.5) Hematocrit 33.4 % (36.0-47.0) Mean Corpuscular Volume 86 fL (79-100) Mean Corpuscular Hemoglobin 28 pg (25-35) Mean Corpuscular Hemoglobin Concent 33 g/dL (31-37) Red Cell Distribution Width 15.0 % (11.5-14.5) Platelet Count 98 x10^3/uL (140-400) Neutrophils (%) (Auto) 68 % (31-73) Lymphocytes (%) (Auto) 16 % (24-48) Monocytes (%) (Auto) 11 % (0-9) Eosinophils (%) (Auto) 5 % (0-3) Basophils (%) (Auto) 1 % (0-3) Neutrophils # (Auto) 4.1 x10^3/uL (1.8-7.7) Lymphocytes # (Auto) 1.0 x10^3/uL (1.0-4.8) Monocytes # (Auto) 0.7 x10^3/uL (0.0-1.1) Eosinophils # (Auto) 0.3 x10^3/uL (0.0-0.7) Basophils # (Auto) 0.0 x10^3/uL (0.0-0.2) Sodium Level 140 mmol/L (136-145) Potassium Level 4.0 mmol/L (3.5-5.1) Chloride Level 105 mmol/L (98-107) Carbon Dioxide Level 22 mmol/L (21-32) Anion Gap 13 (6-14) Blood Urea Nitrogen 34 mg/dL (7-20) Creatinine 1.9 mg/dL (0.6-1.0) Estimated GFR (Cockcroft-Gault) 30.3 Glucose Level 241 mg/dL (70-99) Calcium Level 8.5 mg/dL (8.5-10.1) Test 04/21/19 07:48 Glucose (Fingerstick) 197 mg/dL (70-99) Laboratory Tests Test 04/20/19 10:55 04/20/19 16:29 04/20/19 17:30 04/20/19 20:36 Glucose (Fingerstick) 305 mg/dL (70-99) 57 mg/dL (70-99) 73 mg/dL (70-99) 142 mg/dL (70-99) Test 04/21/19 04:45 04/21/19 07:48 White Blood Count 6.1 x10^3/uL (4.0-11.0) Red Blood Count 3.88 x10^6/uL (3.50-5.40) Hemoglobin 10.9 g/dL (12.0-15.5) Hematocrit 33.4 % (36.0-47.0) Mean Corpuscular Volume 86 fL (79-100) Mean Corpuscular Hemoglobin 28 pg (25-35) Mean Corpuscular Hemoglobin Concent 33 g/dL (31-37) Red Cell Distribution Width 15.0 % (11.5-14.5) Platelet Count 98 x10^3/uL (140-400) Neutrophils (%) (Auto) 68 % (31-73) Lymphocytes (%) (Auto) 16 % (24-48) Monocytes (%) (Auto) 11 % (0-9) Eosinophils (%) (Auto) 5 % (0-3) Basophils (%) (Auto) 1 % (0-3) Neutrophils # (Auto) 4.1 x10^3/uL (1.8-7.7) Lymphocytes # (Auto) 1.0 x10^3/uL (1.0-4.8) Monocytes # (Auto) 0.7 x10^3/uL (0.0-1.1) Eosinophils # (Auto) 0.3 x10^3/uL (0.0-0.7) Basophils # (Auto) 0.0 x10^3/uL (0.0-0.2) Sodium Level 140 mmol/L (136-145) Potassium Level 4.0 mmol/L (3.5-5.1) Chloride Level 105 mmol/L (98-107) Carbon Dioxide Level 22 mmol/L (21-32) Anion Gap 13 (6-14) Blood Urea Nitrogen 34 mg/dL (7-20) Creatinine 1.9 mg/dL (0.6-1.0) Estimated GFR (Cockcroft-Gault) 30.3 Glucose Level 241 mg/dL (70-99) Calcium Level 8.5 mg/dL (8.5-10.1) Glucose (Fingerstick) 197 mg/dL (70-99) Medications Current Medications Sodium Chloride 500 ml @ 500 mls/hr 1X ONCE IV Last administered on 04/19/19at 14:00; Start 04/19/19 at 14:00; Stop 04/19/19 at 14:59; Status DC Insulin Human Regular (HumuLIN R VIAL) 10 unit 1X ONCE IV Last administered on 04/19/19at 15:34; Start 04/19/19 at 14:15; Stop 04/19/19 at 14:16; Status DC Sodium Chloride 1,000 ml @ 75 mls/hr [id number] IV Last administered on 04/21/19at 02:14; Start 04/19/19 at 19:00 Dextrose (Dextrose 50%-Water Syringe) 12.5 gm PRN Q15MIN PRN IV SEE COMMENTS; Start 04/19/19 at 18:15; Stop 04/20/19 at 07:17; Status DC Ceftriaxone Sodium (Rocephin) 1 gm Q24H IVP Last administered on 04/20/19at 19:27; Start 04/19/19 at 18:00 Insulin Human Lispro (HumaLOG) 0-5 UNITS TIDWMEALS SQ ; Start 04/20/19 at 08:00; Stop 04/19/19 at 18:20; Status DC Dextrose (Dextrose 50%-Water Syringe) 12.5 gm PRN Q15MIN PRN IV SEE COMMENTS; Start 04/19/19 at 18:15 Amlodipine Besylate (Norvasc) 10 mg DAILY PO Last administered on 04/20/19at 10:40; Start 04/20/19 at 09:00 Glipizide (Glucotrol) 5 mg DAILY PO Last administered on 04/20/19at 10:39; Start 04/20/19 at 09:00 Non-Formulary Medication (Exemestane ) 25 mg DAILY PO ; Start 04/20/19 at 09:00; Status UNV Indapamide (Lozol) 1.25 mg DAILY PO ; Start 04/20/19 at 09:00; Stop 04/20/19 at 08:30; Status DC Insulin Human Lispro (HumaLOG) 5 units TIDWMEALS SQ Last administered on 04/20/19at 12:00; Start 04/20/19 at 08:00; Stop 04/20/19 at 13:42; Status DC Insulin Glargine (Lantus Syringe) 15 unit QHS SQ Last administered on 04/19/19at 21:00; Start 04/19/19 at 21:00; Stop 04/20/19 at 13:42; Status DC Losartan Potassium (Cozaar) 100 mg DAILY PO ; Start 04/20/19 at 09:00; Stop 04/20/19 at 08:47; Status DC Pantoprazole Sodium (Protonix) 40 mg DAILYAC PO Last administered on 04/20/19at 10:39; Start 04/20/19 at 07:30 Insulin Human Lispro (HumaLOG) 0-5 UNITS TIDWMEALHC SQ Last administered on 04/20/19at 12:00; Start 04/19/19 at 18:30 Acetaminophen (Tylenol) 650 mg PRN Q6HRS PRN PO HEADACHE/FEVER; Start 04/19/19 at 18:45 Insulin Glargine (Lantus Syringe) 18 unit QHS SQ ; Start 04/20/19 at 21:00; Stop 04/20/19 at 17:37; Status DC Insulin Human Lispro (HumaLOG) 8 units TIDWMEALS SQ ; Start 04/20/19 at 17:00; Stop 04/20/19 at 17:37; Status DC Lactobacillus Rhamnosus (Culturelle) 1 cap BID PO ; Start 04/20/19 at 21:00 Insulin Glargine (Lantus Syringe) 12 unit QHS SQ ; Start 04/20/19 at 17:45; Stop 04/20/19 at 21:00; Status DC Insulin Human Lispro (HumaLOG) 3 units TIDWMEALS SQ ; Start 04/20/19 at 17:45 Active Scripts Active Reported Exemestane 25 Mg Tablet 25 Mg PO DAILY Glipizide 5 Mg Tablet 1 Tab PO DAILY Novolog (Insulin Aspart) 100 Unit/1 Ml Cartridge 5 Unit SQ TIDAC Omeprazole 40 Mg Capsule.dr 40 Mg PO DAILY Avapro (Irbesartan) 300 Mg Tablet 300 Mg PO DAILY Lantus Solostar (Insulin Glargine,Hum.rec.anlog) 100 Unit/1 Ml Insuln.pen 15 Unit SQ HS Indapamide 1.25 Mg Tablet 1.25 Mg PO DAILY Norvasc (Amlodipine Besylate) 10 Mg Tablet 10 Mg PO DAILY Vitals/I & O Vital Sign - Last 24 Hours 04/20/19 04/20/19 04/20/19 04/20/19 10:40 11:00 15:00 19:00 Temp 98.1 98.1 98.1 98.1 98.1 98.1 Pulse 72 66 80 71 Resp 18 16 16 B/P (MAP) 149/73 136/63 (87) 139/67 (91) 132/58 (82) Pulse Ox 96 97 96 O2 Delivery Room Air Room Air Room Air 04/20/19 04/21/19 04/21/19 23:00 03:00 07:00 Temp 97.9 98.2 98.1 97.9 98.2 98.1 Pulse 62 66 75 Resp 18 18 16 B/P (MAP) 146/66 (92) 126/53 (77) 158/80 (106) Pulse Ox 94 97 96 O2 Delivery Room Air Room Air Room Air Intake and Output 04/20/19 04/20/19 04/21/19 14:59 22:59 06:59 Intake Total 250 ml 260 ml 310 ml Balance 250 ml 260 ml 310 ml RALPH FLEMING MD Apr 21, 2019 08:47
[2019-04-21] MEDS: INSULIN LISPRO 300 UNITS/3 ML VIAL. SQ SCH ×7 (08:49→21:00)
[2019-04-21] MEDS: NON FORMULARY ITEM (Exemestane 25 MG) PO SCH (09:00)
[2019-04-21 11:00] VITALS: BP 158/62
--- NOTE | 2019-04-21 14:20 | PDOC ---
SUBJECTIVE ROS No complaints OBJECTIVE Vital Signs Vital Signs Date Time Temp Pulse Resp B/P (MAP) Pulse Ox O2 Delivery O2 Flow Rate FiO2 04/21/19 11:00 98.0 69 16 158/62 (94) 100 Room Air 98.0 I & 0 Intake and Output 04/21/19 07:00 Intake Total 820 ml Balance 820 ml Intake Oral 820 ml # Voids 5 PHYSICAL EXAM Physical Exam GENERAL: No apparent distress, in the chair HEENT: Head is normocephalic, atraumatic, OM moist NECK: Supple, LUNGS: Clear to auscultation , Non labored HEART: RRR, S1, S2 present. ABDOMEN: Soft, nontender. EXTREMITIES: Without any cyanosis, clubbing, or edema. NEUROLOGIC: grossly normal PSYCHIATRIC: Normal affect, normal mood. Stable. SKIN: No rashes, No Liu DIAGNOSIS/ASSESSMENT Assessment & Plan FREDIS- pre-renal 2/2 Hyperglycemia Renal function Improving with IVF K and acid base stable, Hold Diuretic and ARB Renal US november 2018- Unremarkable Supportive care, avoid nephrotoxins, monitor CKD stage 3 -Possible underlying chronic kidney disease cannot be ruled out severe diabetic hypertensive nephrosclerosis Previous Hospitalization Cr around 1.4 , No prior labs available Hyponatremia- resolved UTI - Pt asymptomatic Per Primary Severe Hyperglycemia at presentation DM- On insulin, management per primary HTN- Stable, antihypertensives at home -Indapamide, Irbesartan , amlodipine Hold Diuretic and ARB COMMENT/RELEVANT DATA Meds Current Medications Medications (Trade) Dose Ordered Sig/Markell Start Time Stop Time Status Last Admin Dose Admin Acetaminophen (Tylenol) 650 mg PRN Q6HRS PRN 04/19/19 18:45 Amlodipine Besylate (Norvasc) 10 mg DAILY 04/20/19 09:00 04/21/19 08:44 10 MG Ceftriaxone Sodium (Rocephin) 1 gm Q24H 04/19/19 18:00 04/20/19 19:27 1 GM Dextrose (Dextrose 50%-Water Syringe) 12.5 gm PRN Q15MIN PRN 04/19/19 18:15 Glipizide (Glucotrol) 5 mg DAILY 04/20/19 09:00 04/21/19 08:43 5 MG Indapamide (Lozol) 1.25 mg DAILY 04/20/19 09:00 04/20/19 08:30 DC Insulin Glargine (Lantus Syringe) 10 unit QHS 04/21/19 21:00 Insulin Human Lispro (HumaLOG) 3 units TIDWMEALS 04/20/19 17:45 04/21/19 12:00 3 UNITS Insulin Human Regular (HumuLIN R VIAL) 10 unit 1X ONCE 04/19/19 14:15 04/19/19 14:16 DC 04/19/19 15:34 10 UNIT Lactobacillus Rhamnosus (Culturelle) 1 cap BID 04/20/19 21:00 04/21/19 08:43 1 CAP Losartan Potassium (Cozaar) 100 mg DAILY 04/20/19 09:00 04/20/19 08:47 DC Non-Formulary Medication (Exemestane ) 25 mg DAILY 04/20/19 09:00 UNV Pantoprazole Sodium (Protonix) 40 mg DAILYAC 04/20/19 07:30 04/21/19 08:43 40 MG Sodium Chloride 1,000 ml @ 75 mls/hr [id number] 04/19/19 19:00 04/21/19 11:00 75 MLS/HR Lab Laboratory Tests Test 04/20/19 16:29 04/20/19 17:30 04/20/19 20:36 04/21/19 04:45 Glucose (Fingerstick) 57 mg/dL (70-99) 73 mg/dL (70-99) 142 mg/dL (70-99) White Blood Count 6.1 x10^3/uL (4.0-11.0) Red Blood Count 3.88 x10^6/uL (3.50-5.40) Hemoglobin 10.9 g/dL (12.0-15.5) Hematocrit 33.4 % (36.0-47.0) Mean Corpuscular Volume 86 fL (79-100) Mean Corpuscular Hemoglobin 28 pg (25-35) Mean Corpuscular Hemoglobin Concent 33 g/dL (31-37) Red Cell Distribution Width 15.0 % (11.5-14.5) Platelet Count 98 x10^3/uL (140-400) Neutrophils (%) (Auto) 68 % (31-73) Lymphocytes (%) (Auto) 16 % (24-48) Monocytes (%) (Auto) 11 % (0-9) Eosinophils (%) (Auto) 5 % (0-3) Basophils (%) (Auto) 1 % (0-3) Neutrophils # (Auto) 4.1 x10^3/uL (1.8-7.7) Lymphocytes # (Auto) 1.0 x10^3/uL (1.0-4.8) Monocytes # (Auto) 0.7 x10^3/uL (0.0-1.1) Eosinophils # (Auto) 0.3 x10^3/uL (0.0-0.7) Basophils # (Auto) 0.0 x10^3/uL (0.0-0.2) Sodium Level 140 mmol/L (136-145) Potassium Level 4.0 mmol/L (3.5-5.1) Chloride Level 105 mmol/L (98-107) Carbon Dioxide Level 22 mmol/L (21-32) Anion Gap 13 (6-14) Blood Urea Nitrogen 34 mg/dL (7-20) Creatinine 1.9 mg/dL (0.6-1.0) Estimated GFR (Cockcroft-Gault) 30.3 Glucose Level 241 mg/dL (70-99) Calcium Level 8.5 mg/dL (8.5-10.1) Test 04/21/19 07:48 04/21/19 11:22 Glucose (Fingerstick) 197 mg/dL (70-99) 136 mg/dL (70-99) Results All relevant outside records, renal labs, imaging studies, telemetry/EKG's were reviewed. NOAH RESENDIZ MD Apr 21, 2019 14:20
[2019-04-21 15:00] VITALS: BP 174/67
[2019-04-21] MEDS: cefTRIAXone IV Push 1 GM VIAL. IVP SCH (17:36)
[2019-04-21 19:00] VITALS: BP 134/59
[2019-04-21] MEDS ORDERED: INSULIN GLARGINE SYRINGE. SQ SCH (21:00)
[2019-04-21 23:04] VITALS: BP 167/65
[2019-04-22] MEDS: IV NORMAL SALINE 1000ML BAG 1,000 ML IV SCH ×2 (00:20→13:40)
[2019-04-22 02:50] VITALS: BP 159/71
[2019-04-22 06:35] LABS: BASO % 1 % (0-3); EOS # 0.3 x10^3/uL (0.0-0.7); EOS % 4 % (0-3); HEMATOCRIT 34.3 % (36.0-47.0); HEMOGLOBIN 11.2 g/dL (12.0-15.5); LYMPH # 1.4 x10^3/uL (1.0-4.8); LYMPH % 21 % (24-48); MEAN CORPUSCULAR HEMOGLOBIN 28 pg (25-35); MEAN CORPUSCULAR HGB CONC 33 g/dL (31-37); MEAN CORPUSCULAR VOLUME 85 fL (79-100); MONO # 0.8 x10^3/uL (0.0-1.1); MONO % 12 % (0-9); NEUT # 4.1 x10^3/uL (1.8-7.7); NEUT % 62 % (31-73); PLATELET COUNT 158 x10^3/uL (140-400); RED BLOOD COUNT 4.06 x10^6/uL (3.50-5.40); RED CELL DISTRIBUTION WIDTH 14.7 % (11.5-14.5); WHITE BLOOD COUNT 6.6 x10^3/uL (4.0-11.0)
[2019-04-22 06:47] LABS: CALCIUM 8.9 mg/dL (8.5-10.1); CREATININE 1.4 mg/dL (0.6-1.0)
[2019-04-22 07:00] VITALS: BP 160/65
[2019-04-22] MEDS: PANTOPRAZOLE 40 MG TABLET.DR. PO SCH (07:42)
[2019-04-22] MEDS: NON FORMULARY ITEM (Exemestane 25 MG) PO SCH (09:00)
[2019-04-22] MEDS: LACTOBACILLUS RHAMNOSUS GG 1 CAPSULE. PO SCH ×2 (09:13→20:25)
[2019-04-22] MEDS: glipiZIDE 5 MG TABLET PO SCH (09:14)
[2019-04-22] MEDS: amLODIPine BESYLATE 10 MG TABLET PO SCH (09:14)
[2019-04-22] MEDS: INSULIN LISPRO 300 UNITS/3 ML VIAL. SQ SCH ×7 (09:19→20:23)
--- NOTE | 2019-04-22 10:41 | PDOC ---
PROGRESS NOTES Chief Complaint Chief Complaint A/P: Acute metabolic encephalopathy Acute kidney injury - likely vasomotor nephropathy with ingestion of diuretics while taking po poorly Hyperglycemia - will adjust insulin Anemia Hyponatremia - likely 2/2 diuretic use, poor po intake UTI - grossly abnormal UA, awaiting culture. Will cont empiric rocephin History of Present Illness History of Present Illness Ms Gama is a 89-year-old F w/ PMHx diabetes, hypertension, breast cancer who comes from home per her daughter with mental status change. Notably creatinine of 4.4 and a BUN of 51, anemic with a hemoglobin of 11.5, sodium 126, and glucose of 604. Nephrology consulted. 04/21: Cr already down to 1.9 today. Glucose improved. Had a low sugar < 60 yesterday, insulin adjusted accordingly. Apparently did not receive her lantus last night, glucose this morning was 197. Feeling a bit better today, still a bit confused. No pain complaints. Labs improving with Cr 1.4 now. Denies SOB and CP. Unsteady. PT and OT recommend SNF on d/c and based on the fact that patient claims she has been having home health and her insulin prepared for her at home I would agree placement, at least temporarily is in her best interest for her health given if things had progressed she would have had progressive renal failure. Vitals Vitals Vital Signs Date Time Temp Pulse Resp B/P (MAP) Pulse Ox O2 Delivery O2 Flow Rate FiO2 04/22/19 09:14 80 160/85 04/22/19 07:00 98.4 20 98 Room Air 98.4 Physical Exam General: Alert, Cooperative Heart: Regular rate, Normal S1, Normal S2 Lungs: Clear Abdomen: Normal bowel sounds, Soft Extremities: No clubbing, No cyanosis Skin: No rashes, No breakdown Labs LABS Laboratory Tests Test 04/21/19 11:22 04/21/19 16:49 04/21/19 20:43 04/22/19 05:22 Glucose (Fingerstick) 136 mg/dL (70-99) 118 mg/dL (70-99) 214 mg/dL (70-99) White Blood Count 6.6 x10^3/uL (4.0-11.0) Red Blood Count 4.06 x10^6/uL (3.50-5.40) Hemoglobin 11.2 g/dL (12.0-15.5) Hematocrit 34.3 % (36.0-47.0) Mean Corpuscular Volume 85 fL (79-100) Mean Corpuscular Hemoglobin 28 pg (25-35) Mean Corpuscular Hemoglobin Concent 33 g/dL (31-37) Red Cell Distribution Width 14.7 % (11.5-14.5) Platelet Count 158 x10^3/uL (140-400) Neutrophils (%) (Auto) 62 % (31-73) Lymphocytes (%) (Auto) 21 % (24-48) Monocytes (%) (Auto) 12 % (0-9) Eosinophils (%) (Auto) 4 % (0-3) Basophils (%) (Auto) 1 % (0-3) Neutrophils # (Auto) 4.1 x10^3/uL (1.8-7.7) Lymphocytes # (Auto) 1.4 x10^3/uL (1.0-4.8) Monocytes # (Auto) 0.8 x10^3/uL (0.0-1.1) Eosinophils # (Auto) 0.3 x10^3/uL (0.0-0.7) Basophils # (Auto) 0.0 x10^3/uL (0.0-0.2) Sodium Level 142 mmol/L (136-145) Potassium Level 4.0 mmol/L (3.5-5.1) Chloride Level 107 mmol/L (98-107) Carbon Dioxide Level 27 mmol/L (21-32) Anion Gap 8 (6-14) Blood Urea Nitrogen 22 mg/dL (7-20) Creatinine 1.4 mg/dL (0.6-1.0) Estimated GFR (Cockcroft-Gault) 43.0 Glucose Level 168 mg/dL (70-99) Calcium Level 8.9 mg/dL (8.5-10.1) Test 04/22/19 06:04 04/22/19 07:35 Glucose (Fingerstick) 146 mg/dL (70-99) 247 mg/dL (70-99) Assessment and Plan Assessmemt and Plan Problems Medical Problems: (1) Acute on chronic kidney failure Status: Acute (2) Anemia Status: Acute (3) Hyperglycemia Status: Acute Comment Review of Relevant I have reviewed the following items meg (where applicable) has been applied. Labs Laboratory Tests Test 04/20/19 10:55 04/20/19 16:29 04/20/19 17:30 04/20/19 20:36 Glucose (Fingerstick) 305 mg/dL (70-99) 57 mg/dL (70-99) 73 mg/dL (70-99) 142 mg/dL (70-99) Test 04/21/19 04:45 04/21/19 07:48 04/21/19 11:22 04/21/19 16:49 White Blood Count 6.1 x10^3/uL (4.0-11.0) Red Blood Count 3.88 x10^6/uL (3.50-5.40) Hemoglobin 10.9 g/dL (12.0-15.5) Hematocrit 33.4 % (36.0-47.0) Mean Corpuscular Volume 86 fL (79-100) Mean Corpuscular Hemoglobin 28 pg (25-35) Mean Corpuscular Hemoglobin Concent 33 g/dL (31-37) Red Cell Distribution Width 15.0 % (11.5-14.5) Platelet Count 98 x10^3/uL (140-400) Neutrophils (%) (Auto) 68 % (31-73) Lymphocytes (%) (Auto) 16 % (24-48) Monocytes (%) (Auto) 11 % (0-9) Eosinophils (%) (Auto) 5 % (0-3) Basophils (%) (Auto) 1 % (0-3) Neutrophils # (Auto) 4.1 x10^3/uL (1.8-7.7) Lymphocytes # (Auto) 1.0 x10^3/uL (1.0-4.8) Monocytes # (Auto) 0.7 x10^3/uL (0.0-1.1) Eosinophils # (Auto) 0.3 x10^3/uL (0.0-0.7) Basophils # (Auto) 0.0 x10^3/uL (0.0-0.2) Sodium Level 140 mmol/L (136-145) Potassium Level 4.0 mmol/L (3.5-5.1) Chloride Level 105 mmol/L (98-107) Carbon Dioxide Level 22 mmol/L (21-32) Anion Gap 13 (6-14) Blood Urea Nitrogen 34 mg/dL (7-20) Creatinine 1.9 mg/dL (0.6-1.0) Estimated GFR (Cockcroft-Gault) 30.3 Glucose Level 241 mg/dL (70-99) Calcium Level 8.5 mg/dL (8.5-10.1) Glucose (Fingerstick) 197 mg/dL (70-99) 136 mg/dL (70-99) 118 mg/dL (70-99) Test 04/21/19 20:43 04/22/19 05:22 04/22/19 06:04 04/22/19 07:35 Glucose (Fingerstick) 214 mg/dL (70-99) 146 mg/dL (70-99) 247 mg/dL (70-99) White Blood Count 6.6 x10^3/uL (4.0-11.0) Red Blood Count 4.06 x10^6/uL (3.50-5.40) Hemoglobin 11.2 g/dL (12.0-15.5) Hematocrit 34.3 % (36.0-47.0) Mean Corpuscular Volume 85 fL (79-100) Mean Corpuscular Hemoglobin 28 pg (25-35) Mean Corpuscular Hemoglobin Concent 33 g/dL (31-37) Red Cell Distribution Width 14.7 % (11.5-14.5) Platelet Count 158 x10^3/uL (140-400) Neutrophils (%) (Auto) 62 % (31-73) Lymphocytes (%) (Auto) 21 % (24-48) Monocytes (%) (Auto) 12 % (0-9) Eosinophils (%) (Auto) 4 % (0-3) Basophils (%) (Auto) 1 % (0-3) Neutrophils # (Auto) 4.1 x10^3/uL (1.8-7.7) Lymphocytes # (Auto) 1.4 x10^3/uL (1.0-4.8) Monocytes # (Auto) 0.8 x10^3/uL (0.0-1.1) Eosinophils # (Auto) 0.3 x10^3/uL (0.0-0.7) Basophils # (Auto) 0.0 x10^3/uL (0.0-0.2) Sodium Level 142 mmol/L (136-145) Potassium Level 4.0 mmol/L (3.5-5.1) Chloride Level 107 mmol/L (98-107) Carbon Dioxide Level 27 mmol/L (21-32) Anion Gap 8 (6-14) Blood Urea Nitrogen 22 mg/dL (7-20) Creatinine 1.4 mg/dL (0.6-1.0) Estimated GFR (Cockcroft-Gault) 43.0 Glucose Level 168 mg/dL (70-99) Calcium Level 8.9 mg/dL (8.5-10.1) Laboratory Tests Test 04/21/19 11:22 04/21/19 16:49 04/21/19 20:43 04/22/19 05:22 Glucose (Fingerstick) 136 mg/dL (70-99) 118 mg/dL (70-99) 214 mg/dL (70-99) White Blood Count 6.6 x10^3/uL (4.0-11.0) Red Blood Count 4.06 x10^6/uL (3.50-5.40) Hemoglobin 11.2 g/dL (12.0-15.5) Hematocrit 34.3 % (36.0-47.0) Mean Corpuscular Volume 85 fL (79-100) Mean Corpuscular Hemoglobin 28 pg (25-35) Mean Corpuscular Hemoglobin Concent 33 g/dL (31-37) Red Cell Distribution Width 14.7 % (11.5-14.5) Platelet Count 158 x10^3/uL (140-400) Neutrophils (%) (Auto) 62 % (31-73) Lymphocytes (%) (Auto) 21 % (24-48) Monocytes (%) (Auto) 12 % (0-9) Eosinophils (%) (Auto) 4 % (0-3) Basophils (%) (Auto) 1 % (0-3) Neutrophils # (Auto) 4.1 x10^3/uL (1.8-7.7) Lymphocytes # (Auto) 1.4 x10^3/uL (1.0-4.8) Monocytes # (Auto) 0.8 x10^3/uL (0.0-1.1) Eosinophils # (Auto) 0.3 x10^3/uL (0.0-0.7) Basophils # (Auto) 0.0 x10^3/uL (0.0-0.2) Sodium Level 142 mmol/L (136-145) Potassium Level 4.0 mmol/L (3.5-5.1) Chloride Level 107 mmol/L (98-107) Carbon Dioxide Level 27 mmol/L (21-32) Anion Gap 8 (6-14) Blood Urea Nitrogen 22 mg/dL (7-20) Creatinine 1.4 mg/dL (0.6-1.0) Estimated GFR (Cockcroft-Gault) 43.0 Glucose Level 168 mg/dL (70-99) Calcium Level 8.9 mg/dL (8.5-10.1) Test 04/22/19 06:04 04/22/19 07:35 Glucose (Fingerstick) 146 mg/dL (70-99) 247 mg/dL (70-99) Microbiology 04/20/19 Urine Culture - Final, Complete 04/20/19 Urine Culture Result 1 (RODERICK) - Final, Complete Medications Current Medications Sodium Chloride 500 ml @ 500 mls/hr 1X ONCE IV Last administered on 04/19/19at 14:00; Start 04/19/19 at 14:00; Stop 04/19/19 at 14:59; Status DC Insulin Human Regular (HumuLIN R VIAL) 10 unit 1X ONCE IV Last administered on 04/19/19at 15:34; Start 04/19/19 at 14:15; Stop 04/19/19 at 14:16; Status DC Sodium Chloride 1,000 ml @ 75 mls/hr [id number] IV Last administered on 04/21/19at 11:00; Start 04/19/19 at 19:00 Dextrose (Dextrose 50%-Water Syringe) 12.5 gm PRN Q15MIN PRN IV SEE COMMENTS; Start 04/19/19 at 18:15; Stop 04/20/19 at 07:17; Status DC Ceftriaxone Sodium (Rocephin) 1 gm Q24H IVP Last administered on 04/21/19at 17:36; Start 04/19/19 at 18:00 Insulin Human Lispro (HumaLOG) 0-5 UNITS TIDWMEALS SQ ; Start 04/20/19 at 08:00; Stop 04/19/19 at 18:20; Status DC Dextrose (Dextrose 50%-Water Syringe) 12.5 gm PRN Q15MIN PRN IV SEE COMMENTS; Start 04/19/19 at 18:15 Amlodipine Besylate (Norvasc) 10 mg DAILY PO Last administered on 04/22/19at 09:14; Start 04/20/19 at 09:00 Glipizide (Glucotrol) 5 mg DAILY PO Last administered on 04/22/19at 09:14; Start 04/20/19 at 09:00 Non-Formulary Medication (Exemestane ) 25 mg DAILY PO ; Start 04/20/19 at 09:00; Status UNV Indapamide (Lozol) 1.25 mg DAILY PO ; Start 04/20/19 at 09:00; Stop 04/20/19 at 08:30; Status DC Insulin Human Lispro (HumaLOG) 5 units TIDWMEALS SQ Last administered on 04/20/19at 12:00; Start 04/20/19 at 08:00; Stop 04/20/19 at 13:42; Status DC Insulin Glargine (Lantus Syringe) 15 unit QHS SQ Last administered on 04/19/19at 21:00; Start 04/19/19 at 21:00; Stop 04/20/19 at 13:42; Status DC Losartan Potassium (Cozaar) 100 mg DAILY PO ; Start 04/20/19 at 09:00; Stop 04/20/19 at 08:47; Status DC Pantoprazole Sodium (Protonix) 40 mg DAILYAC PO Last administered on 04/22/19at 07:42; Start 04/20/19 at 07:30 Insulin Human Lispro (HumaLOG) 0-5 UNITS TIDWMEALHC SQ Last administered on 04/22/19at 09:19; Start 04/19/19 at 18:30 Acetaminophen (Tylenol) 650 mg PRN Q6HRS PRN PO HEADACHE/FEVER; Start 04/19/19 at 18:45 Insulin Glargine (Lantus Syringe) 18 unit QHS SQ ; Start 04/20/19 at 21:00; Stop 04/20/19 at 17:37; Status DC Insulin Human Lispro (HumaLOG) 8 units TIDWMEALS SQ ; Start 04/20/19 at 17:00; Stop 04/20/19 at 17:37; Status DC Lactobacillus Rhamnosus (Culturelle) 1 cap BID PO Last administered on 04/22/19at 09:13; Start 04/20/19 at 21:00 Insulin Glargine (Lantus Syringe) 12 unit QHS SQ ; Start 04/20/19 at 17:45; Stop 04/20/19 at 21:00; Status DC Insulin Human Lispro (HumaLOG) 3 units TIDWMEALS SQ Last administered on 04/22/19at 09:26; Start 04/20/19 at 17:45 Insulin Glargine (Lantus Syringe) 10 unit QHS SQ Last administered on 04/21/19at 21:08; Start 04/21/19 at 21:00 Active Scripts Active Reported Exemestane 25 Mg Tablet 25 Mg PO DAILY Glipizide 5 Mg Tablet 1 Tab PO DAILY Novolog (Insulin Aspart) 100 Unit/1 Ml Cartridge 5 Unit SQ TIDAC Omeprazole 40 Mg Capsule.dr 40 Mg PO DAILY Avapro (Irbesartan) 300 Mg Tablet 300 Mg PO DAILY Lantus Solostar (Insulin Glargine,Hum.rec.anlog) 100 Unit/1 Ml Insuln.pen 15 Unit SQ HS Indapamide 1.25 Mg Tablet 1.25 Mg PO DAILY Norvasc (Amlodipine Besylate) 10 Mg Tablet 10 Mg PO DAILY Vitals/I & O Vital Sign - Last 24 Hours 04/21/19 04/21/19 04/21/19 04/21/19 11:00 15:00 19:00 20:05 Temp 98.0 98.3 98.1 98.0 98.3 98.1 Pulse 69 75 70 Resp 16 16 20 B/P (MAP) 158/62 (94) 174/67 (102) 134/59 (84) Pulse Ox 100 99 96 O2 Delivery Room Air Room Air Room Air Room Air 04/21/19 04/22/19 04/22/19 04/22/19 23:04 02:50 07:00 09:14 Temp 98.1 97.9 98.4 98.1 97.9 98.4 Pulse 83 77 80 80 Resp 20 17 20 B/P (MAP) 167/65 (99) 159/71 (100) 160/65 (96) 160/85 Pulse Ox 98 99 98 O2 Delivery Room Air Room Air Room Air Intake and Output 04/21/19 04/21/19 04/22/19 15:00 23:00 07:00 Intake Total 300 ml Balance 300 ml RALPH FLEMING MD Apr 22, 2019 10:41
[2019-04-22 11:00] VITALS: BP 155/63
[2019-04-22 15:55] VITALS: BP 151/57
[2019-04-22 19:00] VITALS: BP 97/51
--- NOTE | 2019-04-22 20:01 | PDOC ---
SUBJECTIVE ROS No complaints OBJECTIVE Vital Signs Vital Signs Date Time Temp Pulse Resp B/P (MAP) Pulse Ox O2 Delivery O2 Flow Rate FiO2 04/22/19 15:55 98.2 71 20 151/57 (88) 97 Room Air 98.2 I & 0 Intake and Output 04/22/19 07:00 Intake Total 300 ml Balance 300 ml Intake Oral 300 ml # Voids 3 # Bowel Movements 1 PHYSICAL EXAM Physical Exam GENERAL: No apparent distress, in the chair HEENT: Head is normocephalic, atraumatic, OM moist NECK: Supple, LUNGS: Clear to auscultation , Non labored HEART: RRR, S1, S2 present. ABDOMEN: Soft, nontender. EXTREMITIES: Without any cyanosis, clubbing, or edema. NEUROLOGIC: grossly normal PSYCHIATRIC: Normal affect, normal mood. Stable. SKIN: No rashes, No Liu DIAGNOSIS/ASSESSMENT Assessment & Plan FREDIS- pre-renal 2/2 Hyperglycemia Renal function Improving K and acid base stable, Hold Diuretic and ARB Renal US november 2018- Unremarkable Supportive care, avoid nephrotoxins, monitor CKD stage 3 -Possible underlying chronic kidney disease cannot be ruled out severe diabetic hypertensive nephrosclerosis Previous Hospitalization Cr around 1.4 , No prior labs available Hyponatremia- resolved UTI - Pt asymptomatic Per Primary Severe Hyperglycemia at presentation DM- On insulin, management per primary HTN- above goal, antihypertensives at home -Indapamide, Irbesartan , amlodipine Restart ARB if BP not at goal, Monitor BMP with PCP in 8-10 days after restarting COMMENT/RELEVANT DATA Meds Current Medications Medications (Trade) Dose Ordered Sig/Markell Start Time Stop Time Status Last Admin Dose Admin Acetaminophen (Tylenol) 650 mg PRN Q6HRS PRN 04/19/19 18:45 Amlodipine Besylate (Norvasc) 10 mg DAILY 04/20/19 09:00 04/22/19 09:14 10 MG Ceftriaxone Sodium (Rocephin) 1 gm Q24H 04/19/19 18:00 04/22/19 16:18 DC 04/21/19 17:36 1 GM Dextrose (Dextrose 50%-Water Syringe) 12.5 gm PRN Q15MIN PRN 04/19/19 18:15 Glipizide (Glucotrol) 5 mg DAILY 04/20/19 09:00 04/22/19 09:14 5 MG Indapamide (Lozol) 1.25 mg DAILY 04/20/19 09:00 04/20/19 08:30 DC Insulin Glargine (Lantus Syringe) 12 unit QHS 04/22/19 21:00 Insulin Human Lispro (HumaLOG) 3 units TIDWMEALS 04/20/19 17:45 04/22/19 17:49 3 UNITS Insulin Human Regular (HumuLIN R VIAL) 10 unit 1X ONCE 04/19/19 14:15 04/19/19 14:16 DC 04/19/19 15:34 10 UNIT Lactobacillus Rhamnosus (Culturelle) 1 cap BID 04/20/19 21:00 04/22/19 09:13 1 CAP Losartan Potassium (Cozaar) 100 mg DAILY 04/20/19 09:00 04/20/19 08:47 DC Non-Formulary Medication (Exemestane ) 25 mg DAILY 04/20/19 09:00 UNV Pantoprazole Sodium (Protonix) 40 mg DAILYAC 04/20/19 07:30 04/22/19 07:42 40 MG Sodium Chloride 1,000 ml @ 75 mls/hr [id number] 04/19/19 19:00 04/21/19 11:00 75 MLS/HR Lab Laboratory Tests Test 04/21/19 20:43 04/22/19 05:22 04/22/19 06:04 04/22/19 07:35 Glucose (Fingerstick) 214 mg/dL (70-99) 146 mg/dL (70-99) 247 mg/dL (70-99) White Blood Count 6.6 x10^3/uL (4.0-11.0) Red Blood Count 4.06 x10^6/uL (3.50-5.40) Hemoglobin 11.2 g/dL (12.0-15.5) Hematocrit 34.3 % (36.0-47.0) Mean Corpuscular Volume 85 fL (79-100) Mean Corpuscular Hemoglobin 28 pg (25-35) Mean Corpuscular Hemoglobin Concent 33 g/dL (31-37) Red Cell Distribution Width 14.7 % (11.5-14.5) Platelet Count 158 x10^3/uL (140-400) Neutrophils (%) (Auto) 62 % (31-73) Lymphocytes (%) (Auto) 21 % (24-48) Monocytes (%) (Auto) 12 % (0-9) Eosinophils (%) (Auto) 4 % (0-3) Basophils (%) (Auto) 1 % (0-3) Neutrophils # (Auto) 4.1 x10^3/uL (1.8-7.7) Lymphocytes # (Auto) 1.4 x10^3/uL (1.0-4.8) Monocytes # (Auto) 0.8 x10^3/uL (0.0-1.1) Eosinophils # (Auto) 0.3 x10^3/uL (0.0-0.7) Basophils # (Auto) 0.0 x10^3/uL (0.0-0.2) Sodium Level 142 mmol/L (136-145) Potassium Level 4.0 mmol/L (3.5-5.1) Chloride Level 107 mmol/L (98-107) Carbon Dioxide Level 27 mmol/L (21-32) Anion Gap 8 (6-14) Blood Urea Nitrogen 22 mg/dL (7-20) Creatinine 1.4 mg/dL (0.6-1.0) Estimated GFR (Cockcroft-Gault) 43.0 Glucose Level 168 mg/dL (70-99) Calcium Level 8.9 mg/dL (8.5-10.1) Test 04/22/19 11:46 04/22/19 17:05 Glucose (Fingerstick) 138 mg/dL (70-99) 290 mg/dL (70-99) Results All relevant outside records, renal labs, imaging studies, telemetry/EKG's were reviewed. NOAH RESENDIZ MD Apr 22, 2019 20:01
[2019-04-22] MEDS ORDERED: INSULIN GLARGINE SYRINGE. SQ SCH (21:00)
[2019-04-22 23:00] VITALS: BP 124/52
[2019-04-23 03:00] VITALS: BP 136/66
[2019-04-23] MEDS: IV NORMAL SALINE 1000ML BAG 1,000 ML IV SCH (03:00)
[2019-04-23 03:22] LABS: BASO % 1 % (0-3); EOS # 0.3 x10^3/uL (0.0-0.7); EOS % 4 % (0-3); HEMATOCRIT 33.1 % (36.0-47.0); LYMPH # 1.7 x10^3/uL (1.0-4.8); LYMPH % 21 % (24-48); MEAN CORPUSCULAR HEMOGLOBIN 29 pg (25-35); MEAN CORPUSCULAR HGB CONC 33 g/dL (31-37); MEAN CORPUSCULAR VOLUME 85 fL (79-100); MONO # 0.9 x10^3/uL (0.0-1.1); MONO % 11 % (0-9); NEUT # 5.1 x10^3/uL (1.8-7.7); NEUT % 63 % (31-73); PLATELET COUNT 157 x10^3/uL (140-400); RED BLOOD COUNT 3.87 x10^6/uL (3.50-5.40); RED CELL DISTRIBUTION WIDTH 14.9 % (11.5-14.5); WHITE BLOOD COUNT 8.1 x10^3/uL (4.0-11.0)
[2019-04-23 03:33] LABS: CALCIUM 8.6 mg/dL (8.5-10.1); CREATININE 1.4 mg/dL (0.6-1.0); POTASSIUM 4.1 mmol/L (3.5-5.1)
[2019-04-23 07:00] VITALS: BP 133/58
[2019-04-23] MEDS: INSULIN LISPRO 300 UNITS/3 ML VIAL. SQ SCH ×4 (08:00→12:36)
--- NOTE | 2019-04-23 08:56 | SNU/HH DC ---
DISCHARGE ORDERS DISCHARGE INFORMATION: DISCHARGE DATE: Apr 23, 2019 FINAL DIAGNOSIS Problems Medical Problems: (1) Acute on chronic kidney failure Status: Acute (2) Anemia Status: Acute (3) Hyperglycemia Status: Acute CONDITION ON DISCHARGE: Stable CODE STATUS: Code Status: Full INTERMEDIATE: SNF STAY <30 DAYS: Yes HOSPICE: HOSPICE: No HOSPICE EVAL & TREAT: No LTAC: ADMIT TO LTAC: No POST DISCHARGE ORDERS: ACTIVITY ORDERS: Activity as tolerated DIET AFTER DISCHARGE: Cardiac WOUND/INCISION CARE: Other, see below CHECKS AFTER DISCHARGE: CHECKS AFTER DISCHARGE: Check blood press - daily, Check blood sugar, ac/hs FOLLOW-UP: PHYSICIAN FOLLOW-UP: pcp to address code status too; ff up pcp upon dc ADDITIONAL FOLLOW-UP: she came for FREDIS, got IVF we held ARB, creat better TREATMENT/EQUIPMENT ORDERS: ADAPTIVE EQUIPMENT NEEDED: None Physical Therapy For: Evalulation/Treatment Occupational Therapy For: Evaluation/Treatment DISCHARGE MEDICATIONS: Home Meds Reported Medications Exemestane (EXEMESTANE) 25 Mg Tablet, 25 MG PO DAILY for breast cancer, TAB 11/24/18 Glipizide (GLIPIZIDE) 5 Mg Tablet, 1 TAB PO DAILY for diabetes, #90 TAB 3 Refills 11/24/18 Insulin Aspart (NOVOLOG) 100 Unit/1 Ml Cartridge, 5 UNIT SQ TIDAC for diabetes, EACH 11/24/18 Omeprazole (OMEPRAZOLE) 40 Mg Capsule.dr, 40 MG PO DAILY, CAP 08/21/14 Insulin Glargine,Hum.rec.anlog (LANTUS SOLOSTAR) 100 Unit/1 Ml Insuln.pen, 15 UNIT SQ HS for diabetes, SYR 08/21/14 Indapamide (INDAPAMIDE) 1.25 Mg Tablet, 1.25 MG PO DAILY for htn 08/21/14 Amlodipine Besylate (NORVASC) 10 Mg Tablet, 10 MG PO DAILY, TAB 08/21/14 Discontinued Reported Medications Irbesartan (AVAPRO) 300 Mg Tablet, 300 MG PO DAILY, TAB 08/21/14 YELENA MCCULLOUGH MD Apr 23, 2019 08:56
[2019-04-23] MEDS: NON FORMULARY ITEM (Exemestane 25 MG) PO SCH (09:00)
[2019-04-23] MEDS: LACTOBACILLUS RHAMNOSUS GG 1 CAPSULE. PO SCH (09:32)
[2019-04-23] MEDS: PANTOPRAZOLE 40 MG TABLET.DR. PO SCH (09:32)
[2019-04-23] MEDS: amLODIPine BESYLATE 10 MG TABLET PO SCH (09:33)
[2019-04-23] MEDS: glipiZIDE 5 MG TABLET PO SCH (09:33)
--- NOTE | 2019-04-23 10:37 | NUR ---
SW following for discharge planning. Chart reviewed, discussed with RN. Pt is from home with daughter, pt receives services through [facility] ([phone]). Pt is approved for 30.5 hours, per [facility], they do not provide usp services. SW met with pt, pt is agreeable to usp per PT/OT recommendation. Pt would like to go to [facility], SW faxed referral to [facility] - pending acceptance. Pt is agreeable to go home with [facility] and Home Health services, if denied for SNU. ZENAIDA spoke with pt's grandson, Vikas ([phone]) - Vikas is agreeable to SNU also. SW awaiting acceptance decision at this time. ZENAIDA will continue to follow. RN notified.
[2019-04-23 10:52] VITALS: BP 152/69
--- NOTE | 2019-04-23 11:12 | PDOC ---
SUBJECTIVE ROS No complaints OBJECTIVE Vital Signs Vital Signs Date Time Temp Pulse Resp B/P (MAP) Pulse Ox O2 Delivery O2 Flow Rate FiO2 04/23/19 10:52 97.8 70 16 152/69 (96) 100 Room Air 97.8 I & 0 Intake and Output 04/23/19 07:00 Intake Total 120 ml Balance 120 ml Intake Oral 120 ml # Voids 3 PHYSICAL EXAM Physical Exam GENERAL: No apparent distress, in the chair HEENT: Head is normocephalic, atraumatic, OM moist NECK: Supple, LUNGS: Clear to auscultation , Non labored HEART: RRR, S1, S2 present. ABDOMEN: Soft, nontender. EXTREMITIES: Without any cyanosis, clubbing, or edema. NEUROLOGIC: grossly normal PSYCHIATRIC: Normal affect, normal mood. Stable. SKIN: No rashes, No Liu DIAGNOSIS/ASSESSMENT Assessment & Plan FREDIS- pre-renal 2/2 Hyperglycemia Renal function improved and stable Renal US november 2018- Unremarkable Supportive care, avoid nephrotoxins, monitor CKD stage 3 -Possible underlying chronic kidney disease cannot be ruled out severe diabetic hypertensive nephrosclerosis Previous Hospitalization Cr around 1.4 , No prior labs available Hyponatremia- resolved UTI - Pt asymptomatic Per Primary Severe Hyperglycemia at presentation DM- On insulin, management per primary HTN- above goal, antihypertensives at home -Indapamide, Irbesartan , amlodipine Restart ARB if BP not at goal, Monitor BMP with PCP in 8-10 days after restarting COMMENT/RELEVANT DATA Meds Current Medications Medications (Trade) Dose Ordered Sig/Markell Start Time Stop Time Status Last Admin Dose Admin Acetaminophen (Tylenol) 650 mg PRN Q6HRS PRN 04/19/19 18:45 Amlodipine Besylate (Norvasc) 10 mg DAILY 04/20/19 09:00 04/23/19 09:33 10 MG Ceftriaxone Sodium (Rocephin) 1 gm Q24H 04/19/19 18:00 04/22/19 16:18 DC 04/21/19 17:36 1 GM Dextrose (Dextrose 50%-Water Syringe) 12.5 gm PRN Q15MIN PRN 04/19/19 18:15 Glipizide (Glucotrol) 5 mg DAILY 04/20/19 09:00 04/23/19 09:33 5 MG Indapamide (Lozol) 1.25 mg DAILY 04/20/19 09:00 04/20/19 08:30 DC Insulin Glargine (Lantus Syringe) 12 unit QHS 04/22/19 21:00 Insulin Human Lispro (HumaLOG) 3 units TIDWMEALS 04/20/19 17:45 04/23/19 09:38 3 UNITS Insulin Human Regular (HumuLIN R VIAL) 10 unit 1X ONCE 04/19/19 14:15 04/19/19 14:16 DC 04/19/19 15:34 10 UNIT Lactobacillus Rhamnosus (Culturelle) 1 cap BID 04/20/19 21:00 04/23/19 09:32 1 CAP Losartan Potassium (Cozaar) 100 mg DAILY 04/20/19 09:00 04/20/19 08:47 DC Non-Formulary Medication (Exemestane ) 25 mg DAILY 04/20/19 09:00 UNV Pantoprazole Sodium (Protonix) 40 mg DAILYAC 04/20/19 07:30 04/23/19 09:32 40 MG Sodium Chloride 1,000 ml @ 75 mls/hr [id number] 04/19/19 19:00 04/23/19 08:55 DC 04/21/19 11:00 75 MLS/HR Lab Laboratory Tests Test 04/22/19 11:46 04/22/19 17:05 04/22/19 20:22 04/23/19 03:00 Glucose (Fingerstick) 138 mg/dL (70-99) 290 mg/dL (70-99) 155 mg/dL (70-99) White Blood Count 8.1 x10^3/uL (4.0-11.0) Red Blood Count 3.87 x10^6/uL (3.50-5.40) Hemoglobin 11.0 g/dL (12.0-15.5) Hematocrit 33.1 % (36.0-47.0) Mean Corpuscular Volume 85 fL (79-100) Mean Corpuscular Hemoglobin 29 pg (25-35) Mean Corpuscular Hemoglobin Concent 33 g/dL (31-37) Red Cell Distribution Width 14.9 % (11.5-14.5) Platelet Count 157 x10^3/uL (140-400) Neutrophils (%) (Auto) 63 % (31-73) Lymphocytes (%) (Auto) 21 % (24-48) Monocytes (%) (Auto) 11 % (0-9) Eosinophils (%) (Auto) 4 % (0-3) Basophils (%) (Auto) 1 % (0-3) Neutrophils # (Auto) 5.1 x10^3/uL (1.8-7.7) Lymphocytes # (Auto) 1.7 x10^3/uL (1.0-4.8) Monocytes # (Auto) 0.9 x10^3/uL (0.0-1.1) Eosinophils # (Auto) 0.3 x10^3/uL (0.0-0.7) Basophils # (Auto) 0.0 x10^3/uL (0.0-0.2) Sodium Level 139 mmol/L (136-145) Potassium Level 4.1 mmol/L (3.5-5.1) Chloride Level 106 mmol/L (98-107) Carbon Dioxide Level 25 mmol/L (21-32) Anion Gap 8 (6-14) Blood Urea Nitrogen 18 mg/dL (7-20) Creatinine 1.4 mg/dL (0.6-1.0) Estimated GFR (Cockcroft-Gault) 43.0 Glucose Level 89 mg/dL (70-99) Calcium Level 8.6 mg/dL (8.5-10.1) Test 04/23/19 07:20 04/23/19 07:45 Glucose (Fingerstick) 115 mg/dL (70-99) 116 mg/dL (70-99) Results All relevant outside records, renal labs, imaging studies, telemetry/EKG's were reviewed. NOAH RESENDIZ MD Apr 23, 2019 11:11
--- NOTE | 2019-04-23 11:32 | SNU/HH DC ---
DISCHARGE WITH HOME HEALTH DISCHARGE INFORMATION: Discharge Date: Apr 23, 2019 Final Diagnosis: Problems Medical Problems: (1) Acute on chronic kidney failure Status: Acute (2) Anemia Status: Acute (3) Hyperglycemia Status: Acute Condition on Discharge: Stable CODE STATUS: Code Status: Full HOME HEALTH: Face to Face: I certify this patient is under my care and that I, or a nurse practitioner or physician's boiler assistant operator working with me, had a face to face encounter that meets the physician face to face encounter requirements with this patient on []. RN For Eval/Treatment: Yes Physical Therapy For: Evalulation/Treatment Occupational Therapy For: Evaluation/Treatment Home Health Aide For: Self-care ADJUSTER For: Community Resources Pt Meets Homebound Status: Unsteady balance w/ amb, POST DISCHARGE ORDERS: Activity Instructions for Disc: Activity as tolerated DIET AFTER DISCHARGE: Cardiac Wound/Incision Care: Other, see below CHECKS AFTER DISCHARGE: Checks after discharge: Check blood press - daily, Check blood sugar, ac/hs FOLLOW-UP: Follow up with: pcp to address code status too; ff up pcp upon dc Follow Up With: she came for FREDIS, got IVF we held ARB, creat better TREATMENT/EQUIPMENT ORDERS: Adaptive Equipment Issued: None CERTIFICATION STATEMENT: Certification Statement: Certification Statement: Based on the above finding, I certify that this patient is confined to the home and needs intermittent care home care, physical therapy and/or speech therapy, or continues to need occupational therapy.~ This patient is under my care, and I have initiated the establishment of the plan of care.~ This patient will be followed by myself or a community physician who will periodically review the plan of care. Home Meds Reported Medications Exemestane (EXEMESTANE) 25 Mg Tablet, 25 MG PO DAILY for breast cancer, TAB 11/24/18 Glipizide (GLIPIZIDE) 5 Mg Tablet, 1 TAB PO DAILY for diabetes, #90 TAB 3 Refills 11/24/18 Insulin Aspart (NOVOLOG) 100 Unit/1 Ml Cartridge, 5 UNIT SQ TIDAC for diabetes, EACH 11/24/18 Omeprazole (OMEPRAZOLE) 40 Mg Capsule.dr, 40 MG PO DAILY, CAP 08/21/14 Insulin Glargine,Hum.rec.anlog (LANTUS SOLOSTAR) 100 Unit/1 Ml Insuln.pen, 15 UNIT SQ HS for diabetes, SYR 08/21/14 Indapamide (INDAPAMIDE) 1.25 Mg Tablet, 1.25 MG PO DAILY for htn 08/21/14 Amlodipine Besylate (NORVASC) 10 Mg Tablet, 10 MG PO DAILY, TAB 08/21/14 Discontinued Reported Medications Irbesartan (AVAPRO) 300 Mg Tablet, 300 MG PO DAILY, TAB 08/21/14 YELENA MCCULLOUGH MD Apr 23, 2019 11:32
--- NOTE | 2019-04-23 11:36 | PDOC3 ---
Discharge Summary Visit Information Date of Admission: Apr 19, 2019 Date of Discharge: Apr 23, 2019 Admitting Diagnosis Comment: FREDIS, VMN ENceph in an elderly sec to above, RESOLVED Hyperglycemia resolved GEn weakness- HH Final Diagnosis Problems Medical Problems: (1) Acute on chronic kidney failure Status: Acute (2) Anemia Status: Acute (3) Hyperglycemia Status: Acute Brief Hospital Course Allergies Allergies Coded Allergies Type Severity Reaction Last Updated Verified codeine Allergy Intermediate 11/25/18 Yes Vital Signs Vital Signs Date Time Temp Pulse Resp B/P (MAP) Pulse Ox O2 Delivery O2 Flow Rate FiO2 04/23/19 10:52 97.8 70 16 152/69 (96) 100 Room Air 97.8 Lab Results Laboratory Tests Test 04/21/19 16:49 04/21/19 20:43 04/22/19 05:22 04/22/19 06:04 Glucose (Fingerstick) 118 mg/dL (70-99) 214 mg/dL (70-99) 146 mg/dL (70-99) White Blood Count 6.6 x10^3/uL (4.0-11.0) Red Blood Count 4.06 x10^6/uL (3.50-5.40) Hemoglobin 11.2 g/dL (12.0-15.5) Hematocrit 34.3 % (36.0-47.0) Mean Corpuscular Volume 85 fL (79-100) Mean Corpuscular Hemoglobin 28 pg (25-35) Mean Corpuscular Hemoglobin Concent 33 g/dL (31-37) Red Cell Distribution Width 14.7 % (11.5-14.5) Platelet Count 158 x10^3/uL (140-400) Neutrophils (%) (Auto) 62 % (31-73) Lymphocytes (%) (Auto) 21 % (24-48) Monocytes (%) (Auto) 12 % (0-9) Eosinophils (%) (Auto) 4 % (0-3) Basophils (%) (Auto) 1 % (0-3) Neutrophils # (Auto) 4.1 x10^3/uL (1.8-7.7) Lymphocytes # (Auto) 1.4 x10^3/uL (1.0-4.8) Monocytes # (Auto) 0.8 x10^3/uL (0.0-1.1) Eosinophils # (Auto) 0.3 x10^3/uL (0.0-0.7) Basophils # (Auto) 0.0 x10^3/uL (0.0-0.2) Sodium Level 142 mmol/L (136-145) Potassium Level 4.0 mmol/L (3.5-5.1) Chloride Level 107 mmol/L (98-107) Carbon Dioxide Level 27 mmol/L (21-32) Anion Gap 8 (6-14) Blood Urea Nitrogen 22 mg/dL (7-20) Creatinine 1.4 mg/dL (0.6-1.0) Estimated GFR (Cockcroft-Gault) 43.0 Glucose Level 168 mg/dL (70-99) Calcium Level 8.9 mg/dL (8.5-10.1) Test 04/22/19 07:35 04/22/19 11:46 04/22/19 17:05 04/22/19 20:22 Glucose (Fingerstick) 247 mg/dL (70-99) 138 mg/dL (70-99) 290 mg/dL (70-99) 155 mg/dL (70-99) Test 04/23/19 03:00 04/23/19 07:20 04/23/19 07:45 White Blood Count 8.1 x10^3/uL (4.0-11.0) Red Blood Count 3.87 x10^6/uL (3.50-5.40) Hemoglobin 11.0 g/dL (12.0-15.5) Hematocrit 33.1 % (36.0-47.0) Mean Corpuscular Volume 85 fL (79-100) Mean Corpuscular Hemoglobin 29 pg (25-35) Mean Corpuscular Hemoglobin Concent 33 g/dL (31-37) Red Cell Distribution Width 14.9 % (11.5-14.5) Platelet Count 157 x10^3/uL (140-400) Neutrophils (%) (Auto) 63 % (31-73) Lymphocytes (%) (Auto) 21 % (24-48) Monocytes (%) (Auto) 11 % (0-9) Eosinophils (%) (Auto) 4 % (0-3) Basophils (%) (Auto) 1 % (0-3) Neutrophils # (Auto) 5.1 x10^3/uL (1.8-7.7) Lymphocytes # (Auto) 1.7 x10^3/uL (1.0-4.8) Monocytes # (Auto) 0.9 x10^3/uL (0.0-1.1) Eosinophils # (Auto) 0.3 x10^3/uL (0.0-0.7) Basophils # (Auto) 0.0 x10^3/uL (0.0-0.2) Sodium Level 139 mmol/L (136-145) Potassium Level 4.1 mmol/L (3.5-5.1) Chloride Level 106 mmol/L (98-107) Carbon Dioxide Level 25 mmol/L (21-32) Anion Gap 8 (6-14) Blood Urea Nitrogen 18 mg/dL (7-20) Creatinine 1.4 mg/dL (0.6-1.0) Estimated GFR (Cockcroft-Gault) 43.0 Glucose Level 89 mg/dL (70-99) Calcium Level 8.6 mg/dL (8.5-10.1) Glucose (Fingerstick) 115 mg/dL (70-99) 116 mg/dL (70-99) Laboratory Tests Test 04/22/19 11:46 04/22/19 17:05 04/22/19 20:22 04/23/19 03:00 Glucose (Fingerstick) 138 mg/dL (70-99) 290 mg/dL (70-99) 155 mg/dL (70-99) White Blood Count 8.1 x10^3/uL (4.0-11.0) Red Blood Count 3.87 x10^6/uL (3.50-5.40) Hemoglobin 11.0 g/dL (12.0-15.5) Hematocrit 33.1 % (36.0-47.0) Mean Corpuscular Volume 85 fL (79-100) Mean Corpuscular Hemoglobin 29 pg (25-35) Mean Corpuscular Hemoglobin Concent 33 g/dL (31-37) Red Cell Distribution Width 14.9 % (11.5-14.5) Platelet Count 157 x10^3/uL (140-400) Neutrophils (%) (Auto) 63 % (31-73) Lymphocytes (%) (Auto) 21 % (24-48) Monocytes (%) (Auto) 11 % (0-9) Eosinophils (%) (Auto) 4 % (0-3) Basophils (%) (Auto) 1 % (0-3) Neutrophils # (Auto) 5.1 x10^3/uL (1.8-7.7) Lymphocytes # (Auto) 1.7 x10^3/uL (1.0-4.8) Monocytes # (Auto) 0.9 x10^3/uL (0.0-1.1) Eosinophils # (Auto) 0.3 x10^3/uL (0.0-0.7) Basophils # (Auto) 0.0 x10^3/uL (0.0-0.2) Sodium Level 139 mmol/L (136-145) Potassium Level 4.1 mmol/L (3.5-5.1) Chloride Level 106 mmol/L (98-107) Carbon Dioxide Level 25 mmol/L (21-32) Anion Gap 8 (6-14) Blood Urea Nitrogen 18 mg/dL (7-20) Creatinine 1.4 mg/dL (0.6-1.0) Estimated GFR (Cockcroft-Gault) 43.0 Glucose Level 89 mg/dL (70-99) Calcium Level 8.6 mg/dL (8.5-10.1) Test 04/23/19 07:20 04/23/19 07:45 Glucose (Fingerstick) 115 mg/dL (70-99) 116 mg/dL (70-99) Brief Hospital Course Ms. 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 Im ok with HH, Dw ZENAIDA Boateng Dc irbesartan, BP good despite being off of it, so no need dc < 30 Discharge Information Condition at Discharge: Improved, Stable Disposition/Orders: D/C to Home w/ HH Scheduled Amlodipine Besylate (Norvasc) 10 Mg Tablet, 10 MG PO DAILY, (Reported) Entered as Reported by: Bernadette Ellis on 08/21/14 1047 Last Action: Continued on 04/19/191805 by NIAL CASTLE Exemestane (Exemestane) 25 Mg Tablet, 25 MG PO DAILY for breast cancer, (Reported) Entered as Reported by: MAYO NICE on 11/24/181836 Last Action: Converted on 04/19/191805 by KATINA JACINTO Glipizide (Glipizide) 5 Mg Tablet, 1 TAB PO DAILY for diabetes, #90 Ref 3 (Reported) Entered as Reported by: MAYO NICE on 11/24/181825 Last Action: Continued on 04/19/191805 by KATINA JACINTO Indapamide (Indapamide) 1.25 Mg Tablet, 1.25 MG PO DAILY for htn, (Reported) Entered as Reported by: Bernadette Ellis on 08/21/141046 Last Action: Converted on 04/19/191805 by KATINA JACINTO Insulin Aspart (Novolog) 100 Unit/1 Ml Cartridge, 5 UNIT SQ TIDAC for diabetes, (Reported) Entered as Reported by: MAYO NICE on 11/24/181825 Last Action: Converted on 04/19/191805 by KATINA JACINTO Insulin Glargine,Hum.rec.anlog (Lantus Solostar) 100 Unit/1 Ml Insuln.pen, 15 UNIT SQ HS for diabetes, (Reported) Entered as Reported by: Bernadette Ellis on 08/21/141046 Last Action: Converted on 04/19/191805 by KATINA JACINTO Omeprazole (Omeprazole) 40 Mg Capsule.dr, 40 MG PO DAILY, (Reported) Entered as Reported by: Bernadette Ellis on 08/21/141046 Last Action: Converted on 04/19/191805 by KATINA JACINTO Discontinued Medications Irbesartan (Avapro) 300 Mg Tablet, 300 MG PO DAILY, (Reported) Entered as Reported by: Bernadette Ellis on 08/21/141046 Last Action: Converted on 04/19/191805 by YELENA SLAUGHTER MD Apr 23, 2019 11:35
--- NOTE | 2019-04-23 13:26 | NUR ---
SW following, pt has been accepted at [facility] for [facility]. [facility] setting up transportation for pt. SW notified pt and pt's grandson, Vikas. PT and grandson in agreement with discharge plan. ZENAIDA faxed discharge paperwork to [facility], awaiting transportation time. RN notified. SW will continue to follow.
--- NOTE | 2019-04-23 14:42 | NUR ---
SW following, [facility] will collect pt at 1600. Pt, RN and pt's grandson notified of transportation time. Pt choice and rights letter signed and placed on chart. No further SW needs.
[2019-04-23 15:00] VITALS: BP 144/64
--- NOTE | 2019-04-23 15:32 | NUR ---
REPORT CALLED TO [facility] AT [facility], QUESTIONS AND CONCERNS ANSWERED, ALL DISCHARGE PAPERWORK PLACED IN FOLDER TO BE SENT WITH PATIENT AT TIME OF DISCHARGE, PATIENT SITTING UP IN CHAIR AT THE BEDSIDE EMOTIONAL SUPPORT GIVEN.
--- NOTE | 2019-04-23 16:20 | NUR ---
PATIENT LEAVES THE UNIT PER W/C, EMOTIONAL SUPPORT GIVEN, FOLLOW UP APPOINTMENTS ENCOURAGED.
== END 2019-04-23 16:20 | DRG 682 ==
LOC: ER 13:00 → 5 SOUTH 14:45
PROVIDERS: ADMIT Internal Medicine; ATTEND Internal Medicine
DX: N17.9 Acute kidney failure, unspecified (principal); G93.41 Metabolic encephalopathy; E87.1 Hypo-osmolality and hyponatremia; N39.0 Urinary tract infection, site not specified; C50.919 Malignant neoplasm of unspecified site of unspecified female breast; D64.9 Anemia, unspecified; E11.22 Type 2 diabetes mellitus with diabetic chronic kidney disease; E11.65 Type 2 diabetes mellitus with hyperglycemia; I12.9 Hypertensive chronic kidney disease with stage 1 through stage 4 chronic kidney disease, or unspecified chronic kidney disease; N18.9 Chronic kidney disease, unspecified; N32.89 Other specified disorders of bladder; T50.2X5A Adverse effect of carbonic-anhydrase inhibitors, benzothiadiazides and other diuretics, initial encounter; Z79.4 Long term (current) use of insulin; Z79.811 Long term (current) use of aromatase inhibitors; Z79.899 Other long term (current) drug therapy; Z82.49 Family history of ischemic heart disease and other diseases of the circulatory system; Z85.3 Personal history of malignant neoplasm of breast; Z88.8 Allergy status to other drugs, medicaments and biological substances; Y92.89 Other specified places as the place of occurrence of the external cause
CPT/HCPCS: 36415; 80048; 80053; 81001; 82962; 83735; 85025; 87086; 96361; 96374; J0696; J1815; J7030; J7040; 97110; 97116; 97530; 97535; 99285-25; G0378

== ENCOUNTER → 2021-03-03 | Outpatient (CLI) | payer MEDICARE, MEDICAID ==
[2021-02-06 16:51] VITALS: BP 78/59
[~2021-03-03] MED LIST changes: +AMOX1TAB10 PO; +CHOL500021 PO; +IRBE300T23 PO; +METO-239 PO; -OMEP40CA45 PO; +OMEP40CA7 PO; +REPA2TAB7 PO
[2021-03-03 08:28] LABS: BASO # 0.1 x10^3/uL (0.0-0.2); BASO % 1 % (0-3); EOS # 0.2 x10^3/uL (0.0-0.7); EOS % 2 % (0-3); HEMATOCRIT 28.5 % (36.0-47.0); HEMOGLOBIN 9.3 g/dL (12.0-15.5); LYMPH # 1.2 x10^3/uL (1.0-4.8); LYMPH % 13 % (24-48); MEAN CORPUSCULAR HEMOGLOBIN 26 pg (25-35); MEAN CORPUSCULAR HGB CONC 33 g/dL (31-37); MEAN CORPUSCULAR VOLUME 80 fL (79-100); MONO # 1.1 x10^3/uL (0.0-1.1); MONO % 11 % (0-9); NEUT # 7.2 x10^3/uL (1.8-7.7); NEUT % 73 % (31-73); PLATELET COUNT 262 x10^3/uL (140-400); RED BLOOD COUNT 3.56 x10^6/uL (3.50-5.40); RED CELL DISTRIBUTION WIDTH 15.4 % (11.5-14.5); WHITE BLOOD COUNT 9.8 x10^3/uL (4.0-11.0)
[2021-03-03 08:49] LABS: CALCIUM 8.5 mg/dL (8.5-10.1); GFR 28.4; POTASSIUM 4.9 mmol/L (3.5-5.1)
== END ==
LOC: SPEC 05:24
PROVIDERS: ATTEND Internal Medicine
DX: I12.9 Hypertensive chronic kidney disease with stage 1 through stage 4 chronic kidney disease, or unspecified chronic kidney disease (principal); N18.30 Chronic kidney disease, stage 3 unspecified
CPT/HCPCS: 36415; 80048; 85025